=== PATIENT | male | born 1945 | race Caucasian/White ===

== ENCOUNTER 2018-06-15 13:06 | Inpatient (IN) ==
[2018-06-15] MEDS ORDERED: ONDANSETRON INJ 2 MG/ML 2 ML VIAL IV PRN (16:20)
[2018-06-15] MEDS ORDERED: MAGNESIUM HYDROXIDE SUSP 30 ML UDC PO PRN (16:20)
[2018-06-15] MEDS ORDERED: POLYETHYLENE (MIRALAX) 17 GM PACK PO PRN (16:20)
[2018-06-15] MEDS ORDERED: ALUMINUM/MAGNESIUM SUSP 30 ML UDC PO PRN (16:20)
[2018-06-15] MEDS ORDERED: GLUCOSE 40% GEL 15 GM TUBE PO PRN (16:54)
[2018-06-15] MEDS ORDERED: GLUCAGON FOR INJ 1 MG VIAL SQ PRN (16:54)
[2018-06-15] MEDS ORDERED: DEXTROSE 50% 50 ML SYRINGE IV PRN (16:54)
[2018-06-15] MEDS ORDERED: GLUCOSE 10 TABS/TUBE PO PRN (16:54)
[2018-06-15] MEDS ORDERED: CARBOHYDRATES FOR HYPOGLYCEMIA PO PRN (16:54)
[2018-06-15 17:18] LABS: Basophils # (auto) 0.01 K/uL (0-0.2); Basophils % (auto) 0.1 %; Hematocrit (blood only) 38.1 % (42-52); Hemoglobin 12.7 g/dL (14.0-18.0); Immature Granulocytes % (auto) 0.9 %; Lymphocytes # (auto) 0.56 K/uL (1.2-3.4); Lymphocytes % (auto) 4.8 %; Mean Corpuscular Hgb Conc 33.3 g/dL (32-36); Mean Corpuscular Volume 94.8 fL (80-100); Mean Platelet Volume 11.4 fL (7.4-10.4); Monocytes # (auto) 0.46 K/uL (0.11-0.59); Monocytes % (auto) 3.9 %; Neutrophils # (auto) 10.59 K/uL (1.4-6.5); Neutrophils % (auto) 90.3 %; Platelet Count 132 K/uL (130-400); RDW Coefficient of Variation 16.4 % (11.5-14.5); RDW Standard Deviation 56.8 fL (36.4-46.3); Red Blood Count 4.02 M/uL (4.7-6.1); White Blood Count 11.72 K/uL (4.8-10.8)
[2018-06-15] MEDS ORDERED: TRIAMCINOLONE ACET 0.1% OINT 15 GM TUBE TOP PRN (17:30)
--- NOTE | 2018-06-15 17:40 | History & Physical Report ---
Date of Service June 15, 2018 Assessment & Plan (1) Bacteremia due to Gram-positive bacteria: Ddx but not limited to: Infectious endocarditis, Diskitis, osteomyelitis, UTI, septic arthritis Patient does not meet Sepsis criteria per current CMS guidelines Hemodynamically patient is stable with out signs of tachycardia or tachypnea, WBC 11k Patient does have severe infection given + Blood cultures Lactate 4.5 -admit to telemetry -Consult cardiology Dr. Henderson/Infectious disease Dr. Perera -Re-order blood cultures, cbc, cmp, esr, crp, procalcitonin, ck, troponin, MRSA nasal swab, UA C and S/micros -Initiate 2g Rocephin daily until further blood culture results available -Administer 1L IVF 200ml/hr, repeat lactate accordingly -Lumbar spine MRI w/o and w contrast to r/o epidural abscess, diskitis, OM -TTE r/o endocarditis (2) Diffuse arthralgia: -continue oxycodone -hold MTX and Prednisone given + bacteremia (3) Anorexia: -heart healthy, T2DM diet -daily weights -approx 30lb unintentional weight loss in 4 months -ddx: infectious, endocarditis, malignancy, blood dyscrasia, thyroid disorder, hypopituitarism, carcinoid, autoimmune (4) Diabetes type 2, controlled: -A1C 01/15/18 5.5 -hold metformin as outpatient -admitting glucose 359, most likely in setting of steroid use and infection -Novolog/Lantus per protocol -adjust accordingly (5) Dyslipidemia: -continue statin (6) CKD (chronic kidney disease) stage 3, GFR 30-59 ml/min: -baseline Cr 1.6-1.8 -monitor bmp (7) CAD (coronary artery disease): -no angina or sob -continue ASA, Statin, BB (8) History of aortic valve replacement: -2014 secondary to bicuspid aortic valve (9) BPH (benign prostatic hyperplasia): -continue finasteride, flomax -check UA with culture/micros (10) DVT prophylaxis: -heparin sq given ckd Disposition: to be determined Follow up: PCP Dr. Marquis upon discharge Patient was seen in collaboration with Dr. aLne, please see addendum History of Present Illness Chief Complaint: Direct admission secondary to positive blood cultures as outpatient Primary Care Provider: Sonja Marquis MD This is a 72-year-old white male who has a significant past medical history of CAD with history of CABG x1, congenital bicuspid aortic valve s/p prosthetic AVR 2015, T2 DM, HLD, CKD stage III, gout, sensorineural hearing loss bilaterally, Mnire's disease who presents to [facility] as a direct admission from food safety auditor Dr. Henderson secondary to positive blood cultures gram-positive cocci chains. Unfortunately patient has been suffering from complex medical course since 04/2018. Initially symptoms started as right knee pain in which on 04/13/18 patient underwent joint aspiration by Dr. Giles. At this time joint aspiration appeared to be inflammatory in nature also growing 20k pmn and rare gram-positive cocci. 04/18/19 pt underwent second joint aspiration due to + rare gram positive cocci noted. There was some concern for contamination; however appears 2nd knee aspirate also grew gram + cocci. He was placed on 10 day course of Keflex 500mg tid and completed. Unfortunately patient's right knee pain continued and extended to left knee pain , bilateral hip pain, shoulder pain and low back pain. Symptoms were limiting patient's ambulation and affecting quality of life. Subsequently he has also had approximately 30 pound weight loss since February 2018, most recently 19lbs in 2 weeks. Further complaints include increased fatigue, decreased appetite, early satiety, increased urinary urgency, freq and incontinence of urine. He has been following closely with PCP Dr. Marquis. Given above complaints patient had extensive lab work which revealed elevated ESR 112. Given inflammatory marker elevation patient was referred to rheumatology Dr. Ewing and placed on prednisone taper. Rheum eval 05/23/18 concern for seronegative inflammatory arthritis given low titer RF and negative anti-CCP with multiple large joint involvement. Patient did exhibit some relief with prednisone therefore Dr. Ewing placed on further prednisone taper and 10 mg of methotrexate weekly. Despite treatment patient symptoms continued in which PCP referred patient to cardiology for AFTT. He was seen by Daniel Chun PA-C 06/14 given symptoms. Further work up ordered including blood cultures given pt hx of prosthetic valve. Blood cultures returned today + gram-positive cocci in chains x2 bottles. Also significant lab work included leukocytosis 17 K, hemoglobin 13.5, hematocrit 42.1, platelet 154, ferritin 575, iron 41, T sat 20 , TIBC 210, WNL vitamin B12 and folic acid. Currently complains of significant low back pain w/o radicular symptoms ( developed post R knee pain), weakness, difficulty ambulating, diffuse arthralgias, urinary freq/urg and incontinence, 30lb weight loss. Currently ambulates with walker to do simple adls. Back in Fall 2017 patient was able to ambulate normally w/o device walking 2-3 miles daily. He does have uppler/lower ext excoriation rash, patient states he scratches constantly and has been going on for years. Uses triamcinolone cream. He denies f/c/s, dizziness, syncope, n/ v/d, hematuria, melena, hematochezia, constipation. Appetite has been very poor , little taste. Has been drinking fluids. at bedside and very concerned. He was to undergo colonoscopy 04/30 but has been cancelled due to low back pain and weakness. Pain has been mostly controlled with percocet bid, "this is how I get through the day." Allergies Allergy/AdvReac Type Severity Reaction Status Date / Time chlorhexidine Allergy Mild Rash Verified 06/15/18 19:56 naproxen Allergy Mild RASH Verified 04/13/18 14:10 Penicillins Allergy Unknown unknown Verified 06/15/18 19:56 sulfamethoxazole Allergy Unknown Verified 06/15/18 19:56 Home Medications Home Medications Medication Instructions Recorded Confirmed Type allopurinol 300 mg PO DAILY 04/13/18 06/15/18 History aspirin [Aspir-81] 81 mg PO DAILY 04/13/18 06/15/18 History atorvastatin 20 mg PO DAILY 04/13/18 06/15/18 History fluoxetine 10 mg PO DAILY 04/13/18 06/15/18 History metformin 500 mg PO BID 04/13/18 06/15/18 History metoprolol succinate 12.5 mg PO DAILY 04/13/18 06/15/18 History triamcinolone acetonide 1 applic TOPICAL BID PRN 04/13/18 06/15/18 History finasteride 5 mg PO DAILY 06/15/18 06/15/18 History folic acid 1 mg PO DAILY 06/15/18 06/15/18 History lorazepam 1 mg PO Q6H PRN 06/15/18 06/15/18 History methotrexate sodium 4 tab PO FR 06/15/18 06/15/18 History methylprednisolone 8 mg PO UD 06/15/18 06/15/18 History oxycodone-acetaminophen 1 tab PO Q6H PRN 06/15/18 06/15/18 History tamsulosin 0.4 mg PO DAILY 06/15/18 06/15/18 History Past Med/Surg History Medical History Chronic rhinitis (Chronic) Sensorineural hearing loss (SNHL), bilateral (Chronic) Bruxism, sleep-related (Chronic) Diabetes type 2, controlled (Chronic) Dyslipidemia (Chronic) Aortic stenosis, moderate (Chronic) "s/p aortic valve replacement with prosthetic valve 04/2015" CKD (chronic kidney disease) stage 3, GFR 30-59 ml/min (Chronic) Meniere's disease (Chronic) CAD (coronary artery disease) (Chronic) "s/p CABG x 1 " Patient is Buddhism (Chronic) Surgical History History of coronary artery bypass graft x 1 (Resolved) "04/14/[address] Justino Colunga" On 07/07/15 18:18 Diamond Reed wrote "04/14/2015" History of aortic valve replacement (Resolved) "[facility] 04/2015 " History of left inguinal hernia repair (Resolved) "[facility] Dr. Okeefe 1986" History of right inguinal hernia repair (Resolved) "1992; R inguinal hernia repair with repair of recurrent L inguinal hernia" Family History Mother , 94 FH: diabetes mellitus Ovarian ca Father , age 73 FHx: emphysema Grandfather (Maternal) , age 47 Heart attack Social History marital status: Current Living Situation: Spouse Other Information That Helps Us Care for You: Yes Feels Safe at Home: Yes Smoking Status: Never smoker Hx Alcohol Use: Yes Alcohol Intake Frequency: holidays/special occasions only Alcohol Intake Frequency Comment: very rare Hx Substance Use: No Beliefs That Will Affect Care: Taoism Taoism Beliefs: Jehovah witness Preferred Language: Maltese Communication Ability: Effective Review of Systems All systems reviewed & are unremarkable except as noted in HPI & below Physical Exam 2 Vital Signs (Past 24 Hours): Last Vital Signs Temp 36.8 C 06/15/18 16:20 Pulse 76 06/15/18 16:20 Resp 18 06/15/18 16:20 BP 132/72 06/15/18 16:20 Pulse Ox 98 06/15/18 16:20 Physical Exam: Gen: Thin, M, pale, NAD, sitting up in bed, pleasant, conversing easily Head: Normocephalic, Atraumatic Eyes: Sclera normal, no conjunctival injection, PERRLA, EOMI ENT: Gross hearing intact, normal pharynx, mucous membranes moist Neck: supple, no adenopathy, No JVD, no bruit, Resp: Clear to auscultation b/l but decreased at bases, no wheeze, rales, rhonchi. Normal insp/exp effort, no accessory muscle use CV: Regular rate, regular rhythm, 3/6 RICHARD noted, no rub, gallop, or ectopy Abd: +BS x 4, soft, nontender, nondistended Musculoskeletal:+ muscle wasting. moves extremities active rom x 4, strength 4/ 5 except LUE 3/5 with abuction, good floor covering printer assistant strength, reflex 2/4, no clonus Extremities: No edema bilaterally Skin: warm, moist, no rash, negative turgor, cap refill < 2sec Neuro: Alert and oriented x 3, speech normal, good mood/affect, cran nerve 2-12 intact grossly : deferred Results & Data Laboratory Results Short CBC Short CBC 06/15/18 06/15/18 06/15/18 Range/Units 16:52 16:52 16:52 WBC 11.72 H (4.8-10.8) K/uL Hgb 12.7 L (14.0-18.0) g/dL Hct 38.1 L (42-52) % Plt Count 132 (130-400) K/uL Immature Gran # (Auto) 0.10 H (0.00-0.02) K/uL BUN 27 H (7-18) mg/dl Creatinine 1.34 (0.6-1.4) mg/dl Glucose 359 H* (70-99) mg/dl Lactate 4.5 H* (0.4-2.0) mmol/L BMP 06/15/18 16:52 Sodium 129 L Potassium 4.7 Chloride 97 L Carbon Dioxide 25 BUN 27 H Creatinine 1.34 Glucose 359 H* Calcium 8.4 L Cardiac Enzymes 06/15/18 Range/Units 16:52 Total Creatine Kinase 22 L (39-308) U/L Troponin I < 0.015 (0-0.045) ng/ml Liver Function 06/15/18 Range/Units 16:52 Total Bilirubin 0.6 (0.2-1) mg/dl AST 15 (15-37) U/L ALT 26 (12-78) U/L Alkaline Phosphatase 100 (45-117) U/L Albumin 2.6 L (3.4-5.0) gm/dl 06/15/18 Range/Units 16:52 WBC 11.72 H (4.8-10.8) K/uL Hgb 12.7 L (14.0-18.0) g/dL Hct 38.1 L (42-52) % Plt Count 132 (130-400) K/uL Ref Range & Units 1d ago Resulting Agency SPECIMEN DESCRIPTION BLOOD SPECIAL REQUESTS PERIPHERAL CULTURE BOTH BOTTLES OF SET GRAM POSITIVE COCCI IN CHAINS Abnormal REPORT STATUS PENDING P Specimen Collected: 06/14/18 3:01 PM Last Resulted: 06/15/18 12:34 PM P=Value has a preliminary status Code Status & VTE Plan Code Status Full Code VTE Prophylaxis Plan VTE Prophylaxis will be ordered: Yes Supervising Physician Co-Signing Physician Notes Care coordinated with PAIGE Butt. Briefly, 72 YO male with history of ischemic heart disease and bioprosthetic AVR. Experiencing malaise, weight loss, arthralgias over last 2 months. No fever. Has lost about 30 lbs. Treated for septic arthritis right knee with course of cephalexin in early April. Cultures from synovial fluid grew Strep viridans. Also experiencing low back pain. Seen in [facility] [place] to have seronegative RA and was started on prednisone and methothrexate about 2 weeks ago. Seen in Cardiology Clinic yesterday. Blood cultures were drawn; preliminary report 2/2 bottles growing Strep sp. Patient referred to hospital for further evaluation and management. EXAM: General- appears to be chronically ill, no acute distress Neck- no JVD Lungs- clear Heart- RRR, III/ sys murmur at base, no diastolic murmur appreciated, no gallop appreciated Abd- + BS, soft, nontender Extr- no pretibial edema or calf tenderness; no splinter hemorrhages, [place] lesions, or Osler nodes; no overt joint effusions Hgb 12.7, WBC 11,720. BUN 27, creat 1.34, random glucose 359. A/P: Recent septic arthritis right knees with Strep viridans. Ongoing malaise, weight loss, arthralgias, back pain. Now with bacteremia with apparent Strep sp. Does not meet criteria for sepsis per current CMS criteria. Must consider endocarditis, lumbar osteomyelitis/discitis/epidural abscess. Repeat blood cultures. IV ceftriaxone. Stop prednisone and methotrexate. Transthoracic echo. MRI lumbar spine. Consult Cardiology and ID. Other problems as noted by PAIGE Ware. _ (1) BPH (benign prostatic hyperplasia) Lower urinary tract symptom detail: urinary frequency Lower urinary tract symptom presence: symptoms present Qualified Code(s): N40.1 - Benign prostatic hyperplasia with lower urinary tract symptoms; R35.0 - Frequency of micturition (2) CAD (coronary artery disease) Associated angina: without angina Coronary Disease-Associated Artery/Lesion type: bypass graft [place] vs. transplanted heart: hughes heart Qualified Code( s): I25.810 - Atherosclerosis of coronary artery bypass graft(s) without angina pectoris (3) Diabetes type 2, controlled Diabetes mellitus complication status: without complication Diabetes mellitus [facility] insulin use: without director long term care use Qualified Code(s): E11.9 - Type 2 diabetes mellitus without complications
[2018-06-15 17:51] LABS: INR 1.1 (0.9-1.1); Prothrombin Time 10.6 Seconds (9.0-12.0)
[2018-06-15 18:06] LABS: Alanine Aminotransferase 26 U/L (12-78); Albumin Globulin Ratio 0.7 (0.9-2); Albumin Level 2.6 gm/dl (3.4-5.0); Alkaline Phosphatase 100 U/L (45-117); Aspartate Aminotransferase 15 U/L (15-37); Bilirubin,Total 0.6 mg/dl (0.2-1); Blood Urea Nitrogen 27 mg/dl (7-18); C Reactive Protein 0.94 mg/dl (0-0.29); Calcium 8.4 mg/dl (8.5-10.1); Carbon Dioxide 25 mmol/L (21-32); Chloride 97 mmol/L (98-107); Creatine Kinase 22 U/L (39-308); Est GFR (African American) 61.8; Est GFR (Non-African American) 53.3; Globulin 3.6 gm/dl (2.5-4.0); Glucose 359 mg/dl (70-99); Potassium 4.7 mmol/L (3.5-5.1); Sodium 129 mmol/L (136-145); Total Protein 6.2 gm/dl (6.4-8.2); Troponin I < 0.015 ng/ml (0-0.045)
[2018-06-15] MEDS: PATIENT'S HEIGHT AND/OR WEIGHT NEEDED SCH ×2 (18:20→22:22)
[2018-06-15] MEDS: cefTRIAXone SODIUM 2,000 MG in DEXTROSE 5% 50 ML IV SCH (18:33)
[2018-06-15] MEDS ORDERED: INSULIN ASPART 100 UNITS/ML 3 ML PEN SC ONE (19:15)
[2018-06-15] MEDS ORDERED: SODIUM CHLORIDE 0.9% 1000ML 1,000 ML IV SCH (19:30)
[2018-06-15] MEDS: INSULIN ASPART 100 UNITS/ML 3 ML PEN SC SCH (21:32)
[2018-06-15] MEDS: INSULIN GLARGINE SOLOSTAR 100 UNITS/ML 3 ML PEN SC SCH (21:32)
[2018-06-15] MEDS: HEPARIN SOD 5,000 UNIT/0.5 ML VIAL SQ SCH (22:07)
[2018-06-15 22:30] LABS: Appearance Urine Clear (Clear); Bilirubin Urine Negative (Negative); Color Urine Yellow; Glucose Urine UA 3+ (Negative); Ketones Urine Negative (Negative); Leukocyte Esterase Urine Negative (Negative); Nitrite Urine Negative (Negative); Protein Urine Negative (Negative); Specific Gravity Urine 1.027 (1.000-1.030); Urobilinogen Urine Positive (Negative)
[2018-06-16] MEDS: HEPARIN SOD 5,000 UNIT/0.5 ML VIAL SQ SCH ×3 (06:07→21:06)
[2018-06-16 06:40] LABS: Basophils # (auto) 0.01 K/uL (0-0.2); Basophils % (auto) 0.1 %; Eosinophils # (auto) 0.04 K/uL (0-0.5); Eosinophils % (auto) 0.3 %; Hematocrit (blood only) 36.2 % (42-52); Hemoglobin 11.8 g/dL (14.0-18.0); Immature Granulocytes # (auto) 0.14 K/uL (0.00-0.02); Immature Granulocytes % (auto) 1.1 %; Lymphocytes # (auto) 1.88 K/uL (1.2-3.4); Lymphocytes % (auto) 14.5 %; Mean Corpuscular Hgb Conc 32.6 g/dL (32-36); Mean Corpuscular Volume 94.8 fL (80-100); Mean Platelet Volume 10.9 fL (7.4-10.4); Monocytes # (auto) 0.87 K/uL (0.11-0.59); Monocytes % (auto) 6.7 %; Neutrophils # (auto) 10.03 K/uL (1.4-6.5); Neutrophils % (auto) 77.3 %; Platelet Count 135 K/uL (130-400); RDW Coefficient of Variation 16.6 % (11.5-14.5); RDW Standard Deviation 57.1 fL (36.4-46.3); Red Blood Count 3.82 M/uL (4.7-6.1); White Blood Count 12.97 K/uL (4.8-10.8)
[2018-06-16 07:22] LABS: Calcium 8.7 mg/dl (8.5-10.1); Est GFR (African American) 79.3; Est GFR (Non-African American) 68.4; Potassium 4.2 mmol/L (3.5-5.1)
--- NOTE | 2018-06-16 07:58 | Infectious Disease Consult ---
Date of Consultation June 16, 2018 Assessment & Plan (1) Gram positive sepsis: cotmarcosue rocephin for now, echo pending, highly concerned for IE, if negative for veg would suggest LAKSHMI. will repeat blood cultures x 2 as admission blood cultures positive. suspect that right knee septic arthritis is source for bacteremia, ongoing infection and likely cause for elevated inflammatory markers , will repeat. MRI spine pending, would also suggest imaging of knee r/o osteo. will need prolonged course of IV abx. will continue to follow. History of Present Illness Attending Physician: Drew Lane MD pt admitted from cardio due to + blood cultures from outpatient blood draw, unclear what bacteria. states he has not been feeling well for some weeks. poor appetite but denies wt loss, low energy, denies f/c. Also found to have elevated ESR, saw rheum and was taking prednisone.. afebrile since admission, wbc 11. blood cultures from ER yesterday now growing gpc 2/2 sets. on Rocephin currently, tolerating well. no imaging done this admission. States in early April he had swelling and discomfort in his right knee, aspiration done and cultures from 04/16 and 04/18 grew viridans strep with I sensitivity to pcn and amp. Fluid analysis from 04/18 found 264,500 wbc with 91% N. He states he was not treated with abx at that time and has not been on abx leading up to this admission, however, per H&P he was reportedly given 10 days keflex. His knee pain and swelling resolved. He was not admitted to hospital at that time. He denies any trauma or surgeries to right knee. He currently states he is feeling well, but tired. denies cp,sob, cough, no n/v/d/abd pain, denies pain/swelling/ warmth in knees. no gu symptoms but per H&P was having incontinence. tolerating abx. Echo and MRI spine pending - was c/o low back as well on admission but denies on my exam. Allergies Allergy/AdvReac Type Severity Reaction Status Date / Time chlorhexidine Allergy Mild Rash Verified 06/15/18 19:56 naproxen Allergy Mild RASH Verified 04/13/18 14:10 Penicillins Allergy Unknown unknown Verified 06/15/18 19:56 sulfamethoxazole Allergy Unknown Verified 06/15/18 19:56 Home Medications Home Medications Medication Instructions Recorded Confirmed Type allopurinol 300 mg PO DAILY 04/13/18 06/15/18 History aspirin [Aspir-81] 81 mg PO DAILY 04/13/18 06/15/18 History atorvastatin 20 mg PO DAILY 04/13/18 06/15/18 History fluoxetine 10 mg PO DAILY 04/13/18 06/15/18 History metformin 500 mg PO BID 04/13/18 06/15/18 History metoprolol succinate 12.5 mg PO DAILY 04/13/18 06/15/18 History triamcinolone acetonide 1 applic TOPICAL BID PRN 04/13/18 06/15/18 History finasteride 5 mg PO DAILY 06/15/18 06/15/18 History folic acid 1 mg PO DAILY 06/15/18 06/15/18 History lorazepam 1 mg PO Q6H PRN 06/15/18 06/15/18 History methotrexate sodium 4 tab PO FR 06/15/18 06/15/18 History methylprednisolone 8 mg PO UD 06/15/18 06/15/18 History oxycodone-acetaminophen 1 tab PO Q6H PRN 06/15/18 06/15/18 History tamsulosin 0.4 mg PO DAILY 06/15/18 06/15/18 History Patient History Medical History Chronic rhinitis (Chronic) Sensorineural hearing loss (SNHL), bilateral (Chronic) Bruxism, sleep-related (Chronic) Diabetes type 2, controlled (Chronic) Dyslipidemia (Chronic) Aortic stenosis, moderate (Chronic) "s/p aortic valve replacement with prosthetic valve 04/2015" CKD (chronic kidney disease) stage 3, GFR 30-59 ml/min (Chronic) Meniere's disease (Chronic) CAD (coronary artery disease) (Chronic) "s/p CABG x 1 " Patient is Rastafarian (Chronic) Surgical History History of coronary artery bypass graft x 1 (Resolved) "04/14/[address] Justino Colunga" On 07/07/15 18:18 Diamond Brianna wrote "04/14/2015" History of aortic valve replacement (Resolved) "[facility] 04/2015 " History of left inguinal hernia repair (Resolved) "[facility] Dr. Okeefe 1986" History of right inguinal hernia repair (Resolved) "1992; R inguinal hernia repair with repair of recurrent L inguinal hernia" Family History Mother , 94 FH: diabetes mellitus Ovarian ca Father , age 73 FHx: emphysema Grandfather (Maternal) , age 47 Heart attack Social History marital status: Current Living Situation: Spouse Other Information That Helps Us Care for You: Yes Feels Safe at Home: Yes Smoking Status: Never smoker Hx Alcohol Use: Yes Alcohol Intake Frequency: holidays/special occasions only Alcohol Intake Frequency Comment: very rare Hx Substance Use: No Beliefs That Will Affect Care: Muslim Muslim Beliefs: Jehovah witness Preferred Language: Turkmen Communication Ability: Effective Review of Systems all remaining ros reviewed and are negative. Physical Exam 2 Vital Signs (Past 24 Hours): Last Vital Signs Temp 36.9 C 06/16/18 02:56 Pulse 70 06/16/18 02:56 Resp 16 06/16/18 02:56 BP 126/75 06/16/18 02:56 Pulse Ox 97 06/16/18 02:56 Constitutional: WD/WN, vitals as above Eyes: PERRL, conjunctivae normal, anicteric sclerae ENMT: external ear and nose normal, oropharynx normal Neck: normal visual inspection Respiratory: normal respiratory effort, lungs clear to auscultation Cardiovascular: RRR, no murmur, no edema Gastrointestinal (Abdomen): normal bowel sounds, soft, nontender, no hepatosplenomegaly Musculoskeletal: no cyanosis or clubbing, extremities motor strength 5/5 Skin: no rashes, warm and dry Trauma: + evidence of skin trauma and + abrasion multiple scrapes and scrathes b/l legs. no drainage or bleeding. b/ l knees with no swelling, warmth, erythema, tenderness Psychiatric: A+Ox3, euthymic affect Results & Data Laboratory Results Microbiology 06/15/18 16:52 Blood Blood Culture - Preliminary Gram positive cocci 06/15/18 16:52 Blood Blood Culture - Preliminary Gram positive cocci
[2018-06-16] MEDS ORDERED: PERFLUTREN LIPID MICROSPHERE (DEFINITY) IV ONE (08:21)
[2018-06-16] MEDS: INSULIN ASPART 100 UNITS/ML 3 ML PEN SC SCH ×4 (09:20→20:57)
[2018-06-16] MEDS: ALLOPURINOL 300 MG TAB PO SCH (09:24)
[2018-06-16] MEDS: FINASTERIDE 5 MG TAB PO SCH (09:24)
[2018-06-16] MEDS: FOLIC ACID 1 MG TAB PO SCH (09:24)
[2018-06-16] MEDS: ATORVASTATIN 20 MG TAB PO SCH (09:24)
[2018-06-16] MEDS: OXYCODONE/ACETAMINOPHEN 5mg/325mg TAB PO PRN ×2 (09:24→17:16)
[2018-06-16] MEDS: METOPROLOL SUCC 25MG EXT REL TAB PO SCH (09:24)
[2018-06-16] MEDS: FLUOXETINE HCL 10 MG CAP PO SCH (09:25)
[2018-06-16] MEDS: ASPIRIN 81 MG ECTAB PO SCH (09:25)
[2018-06-16] MEDS: TAMSULOSIN HCL 0.4 MG CAP PO SCH (09:25)
[2018-06-16] MEDS: INSULIN GLARGINE SOLOSTAR 100 UNITS/ML 3 ML PEN SC SCH ×2 (09:26→20:59)
[2018-06-16] MEDS ORDERED: GADOBUTROL 10ML VIAL IV PRN (11:43)
--- NOTE | 2018-06-16 11:49 | Cardiology Consultation ---
Date of Consultation June 16, 2018 Assessment & Plan (1) Gram positive sepsis: Patient presents with 2-month history of gradual decline malaise weight loss setting of recent septic arthritis with strep viridans. Blood cultures are growing 2 bottles of gram-positive cocci. Antibiotic therapies initiated consult with ID placed and appreciated MRI of back due to back pain pending (2) Bacteremia due to Gram-positive bacteria: (3) History of coronary artery bypass graft x 1: Stable angina pectoris no signs of acute coronary ischemia (4) History of aortic valve replacement: Cardiogram reveals no overt vegetation today bioprosthetic in place with chronic mild perivalvular insufficiency EKG without conduction change Arrangements made for LAKSHMI potentially in a.m., n.p.o. after midnight History of Present Illness Attending Physician: Drew Lane MD History of Present Illness Patient is a 72-year-old male with complex past medical history which includes 1. Congenitally bicuspid aortic valve. 2. Status post aortic valve replacement on April 14, 2015, receiving a 23 mm [place] Epic bioprosthesis 3. Small perivalvular aortic insufficiency jet. 4. Atherosclerotic coronary disease, receiving a BYERS graft to the LAD at the time of valve replacement. 5. Pleuropericarditis postoperatively. 6. Recurrent vagal syncope response to thoracentesis, noxious stimuli 7. Dyslipidemia 8. Type 2 diabetes mellitus 9. Gout 10. Thrombocytopenia 11. Chronic kidney disease. Patient referred for further evaluation after recent outpatient evaluation well outlined. Has had difficulties with weight loss generalized malaise and history of strep viridans septic arthritis April 2018. He is referred for cardiac evaluation with above symptoms having begun on methotrexate and prednisone in the interim for elevated sed rate and and diffuse articular pain. Blood cultures were drawn and are now growing 2 bottles of streptococci He denies any acute cardiac complaints. Notes no tachypalpitations syncope near syncope. Notes no chest pain or discomfort notes no worsening edema. Has had no acute neurologic complaints. Has long-standing excoriative rash. Recently has been experiencing low back pain treated with anti-inflammatory and narcotic pain control. Allergies Allergy/AdvReac Type Severity Reaction Status Date / Time chlorhexidine Allergy Mild Rash Verified 06/15/18 19:56 naproxen Allergy Mild RASH Verified 04/13/18 14:10 Penicillins Allergy Unknown unknown Verified 06/15/18 19:56 sulfamethoxazole Allergy Unknown Verified 06/15/18 19:56 Home Medications Home Medications Medication Instructions Recorded Confirmed Type allopurinol 300 mg PO DAILY 04/13/18 06/15/18 History aspirin [Aspir-81] 81 mg PO DAILY 04/13/18 06/15/18 History atorvastatin 20 mg PO DAILY 04/13/18 06/15/18 History fluoxetine 10 mg PO DAILY 04/13/18 06/15/18 History metformin 500 mg PO BID 04/13/18 06/15/18 History metoprolol succinate 12.5 mg PO DAILY 04/13/18 06/15/18 History triamcinolone acetonide 1 applic TOPICAL BID PRN 04/13/18 06/15/18 History finasteride 5 mg PO DAILY 06/15/18 06/15/18 History folic acid 1 mg PO DAILY 06/15/18 06/15/18 History lorazepam 1 mg PO Q6H PRN 06/15/18 06/15/18 History methotrexate sodium 4 tab PO FR 06/15/18 06/15/18 History methylprednisolone 8 mg PO UD 06/15/18 06/15/18 History oxycodone-acetaminophen 1 tab PO Q6H PRN 06/15/18 06/15/18 History tamsulosin 0.4 mg PO DAILY 06/15/18 06/15/18 History Patient History Medical History Chronic rhinitis (Chronic) Sensorineural hearing loss (SNHL), bilateral (Chronic) Bruxism, sleep-related (Chronic) Diabetes type 2, controlled (Chronic) Dyslipidemia (Chronic) Aortic stenosis, moderate (Chronic) "s/p aortic valve replacement with prosthetic valve 04/2015" CKD (chronic kidney disease) stage 3, GFR 30-59 ml/min (Chronic) Meniere's disease (Chronic) CAD (coronary artery disease) (Chronic) "s/p CABG x 1 " Patient is Alevism (Chronic) Surgical History History of coronary artery bypass graft x 1 (Resolved) "04/14/[address] Justino Colunga" On 07/07/15 18:18 Diamond Brianna wrote "04/14/2015" History of aortic valve replacement (Resolved) "[facility] [place] 04/2015 " History of left inguinal hernia repair (Resolved) "[facility] Dr. [place] 1986" History of right inguinal hernia repair (Resolved) "1992; R inguinal hernia repair with repair of recurrent L inguinal hernia" Family History Mother , 94 FH: diabetes mellitus Ovarian ca Father , age 73 FHx: emphysema Grandfather (Maternal) , age 47 Heart attack Social History marital status: Current Living Situation: Spouse Other Information That Helps Us Care for You: Yes Feels Safe at Home: Yes Smoking Status: Never smoker Hx Alcohol Use: Yes Alcohol Intake Frequency: holidays/special occasions only Alcohol Intake Frequency Comment: very rare Hx Substance Use: No Beliefs That Will Affect Care: Baptism Baptism Beliefs: Jehovah witness Preferred Language: Cuban Communication Ability: Effective Review of Systems As well outlined in HPI Physical Exam 2 Vital Signs (Past 24 Hours): Last Vital Signs Temp 36.9 C 06/16/18 02:56 Pulse 70 06/16/18 02:56 Resp 16 06/16/18 02:56 BP 126/75 06/16/18 02:56 Pulse Ox 97 06/16/18 02:56 Constitutional: + ill appearing and + thin Eyes: PERRL, conjunctivae normal, anicteric sclerae ENMT: external ear and nose normal, oropharynx normal Neck: trachea midline, no thyromegaly Respiratory: normal respiratory effort, lungs clear to auscultation Cardiovascular: Rate/Rhythm: regular rate and regular rhythm Heart Sounds: normal S1, normal S2 and + murmur (Grade 2-3/6 systolic murmur no diastolic murmur no S3 gallop) Palpation: normal PMI Vessels: no JVD Extremities : no pedal edema Gastrointestinal (Abdomen): normal bowel sounds, soft, nontender, no hepatosplenomegaly Skin: Excoriated rash arms legs and trunk Neurologic: PERRL, EOMI, accommodation nl, no face palsy, no dysarthria Psychiatric: A+Ox3, euthymic affect Results & Data Laboratory Results Laboratory Results - last 24 hr 06/15/18 06/15/18 06/15/18 16:52 16:52 16:52 WBC 11.72 H RBC 4.02 L Hgb 12.7 L Hct 38.1 L MCV 94.8 MCH 31.6 MCHC 33.3 RDW Std Deviation 56.8 H RDW Coeff of Tin 16.4 H Plt Count 132 MPV 11.4 H Immature Gran % (Auto) 0.9 Neut % (Auto) 90.3 Lymph % (Auto) 4.8 Hunt % (Auto) 3.9 Eos % (Auto) 0.0 Baso % (Auto) 0.1 Immature Gran # (Auto) 0.10 H Neut # (Auto) 10.59 H Lymph # (Auto) 0.56 L Hunt # (Auto) 0.46 Eos # (Auto) 0.00 Baso # (Auto) 0.01 ESR 19 H PT INR Sodium Potassium Chloride Carbon Dioxide Anion Gap BUN Creatinine Est Cr Clr Drug Dosing Est GFR ( Amer) Est GFR (Non-Af Amer) BUN/Creatinine Ratio Glucose POC Glucose Lactate 4.5 H* Calcium Total Bilirubin AST ALT Alkaline Phosphatase Total Creatine Kinase Troponin I C-Reactive Protein Total Protein Albumin Globulin Albumin/Globulin Ratio Beta-Hydroxybutyric Acd Procalcitonin TSH Urine Color Urine Appearance Urine pH Ur Specific [place] Urine Protein Urine Glucose (UA) Urine Ketones Urine Blood Urine Nitrite Urine Bilirubin Urine Urobilinogen Ur Leukocyte Esterase Nasal Screen MRSA (PCR) Hepatitis C Ab Screen 06/15/18 06/15/18 06/15/18 16:52 16:52 16:52 WBC RBC Hgb Hct MCV MCH MCHC RDW Std Deviation RDW Coeff of Tin Plt Count MPV Immature Gran % (Auto) Neut % (Auto) Lymph % (Auto) [place] % (Auto) Eos % (Auto) Baso % (Auto) Immature Gran # (Auto) Neut # (Auto) Lymph # (Auto) [place] # (Auto) Eos # (Auto) Baso # (Auto) ESR PT INR Sodium 129 L Potassium 4.7 Chloride 97 L Carbon Dioxide 25 Anion Gap 7.0 BUN 27 H Creatinine 1.34 Est Cr Clr Drug Dosing Not Reportable Est GFR ( Amer) 61.8 Est GFR (Non-Af Amer) 53.3 BUN/Creatinine Ratio 20.0 Glucose 359 H* POC Glucose Lactate Calcium 8.4 L Total Bilirubin 0.6 AST 15 ALT 26 Alkaline Phosphatase 100 Total Creatine Kinase 22 L Troponin I < 0.015 C-Reactive Protein 0.94 H Total Protein 6.2 L Albumin 2.6 L Globulin 3.6 Albumin/Globulin Ratio 0.7 L Beta-Hydroxybutyric Acd 1.54 Procalcitonin 0.20 TSH Urine Color Urine Appearance Urine pH Ur Specific [place] Urine Protein Urine Glucose (UA) Urine Ketones Urine Blood Urine Nitrite Urine Bilirubin Urine Urobilinogen Ur Leukocyte Esterase Nasal Screen MRSA (PCR) Hepatitis C Ab Screen Neg 06/15/18 06/15/18 06/15/18 17:25 17:50 19:20 WBC RBC Hgb Hct MCV MCH MCHC RDW Std Deviation RDW Coeff of Tin Plt Count MPV Immature Gran % (Auto) Neut % (Auto) Lymph % (Auto) [place] % (Auto) Eos % (Auto) Baso % (Auto) Immature Gran # (Auto) Neut # (Auto) Lymph # (Auto) [place] # (Auto) Eos # (Auto) Baso # (Auto) ESR PT 10.6 INR 1.1 Sodium Potassium Chloride Carbon Dioxide Anion Gap BUN Creatinine Est Cr Clr Drug Dosing Est GFR ( Amer) Est GFR (Non-Af Amer) BUN/Creatinine Ratio Glucose POC Glucose 330 H Lactate Calcium Total Bilirubin AST ALT Alkaline Phosphatase Total Creatine Kinase Troponin I C-Reactive Protein Total Protein Albumin Globulin Albumin/Globulin Ratio Beta-Hydroxybutyric Acd Procalcitonin TSH Urine Color Urine Appearance Urine pH Ur Specific [place] Urine Protein Urine Glucose (UA) Urine Ketones Urine Blood Urine Nitrite Urine Bilirubin Urine Urobilinogen Ur Leukocyte Esterase Nasal Screen MRSA (PCR) Negative Hepatitis C Ab Screen 06/15/18 06/15/18 06/15/18 21:26 22:15 22:48 WBC RBC Hgb Hct MCV MCH MCHC RDW Std Deviation RDW Coeff of Tin Plt Count MPV Immature Gran % (Auto) Neut % (Auto) Lymph % (Auto) Hunt % (Auto) Eos % (Auto) Baso % (Auto) Immature Gran # (Auto) Neut # (Auto) Lymph # (Auto) Hunt # (Auto) Eos # (Auto) Baso # (Auto) ESR PT INR Sodium Potassium Chloride Carbon Dioxide Anion Gap BUN Creatinine Est Cr Clr Drug Dosing Est GFR ( Amer) Est GFR (Non-Af Amer) BUN/Creatinine Ratio Glucose POC Glucose 201 H Lactate 2.1 H* Calcium Total Bilirubin AST ALT Alkaline Phosphatase Total Creatine Kinase Troponin I C-Reactive Protein Total Protein Albumin Globulin Albumin/Globulin Ratio Beta-Hydroxybutyric Acd Procalcitonin TSH Urine Color Yellow Urine Appearance Clear Urine pH 7.0 Ur Specific [place] 1.027 Urine Protein Negative Urine Glucose (UA) 3+ H Urine Ketones Negative Urine Blood Negative Urine Nitrite Negative Urine Bilirubin Negative Urine Urobilinogen Positive H Ur Leukocyte Esterase Negative Nasal Screen MRSA (PCR) Hepatitis C Ab Screen 06/16/18 06/16/18 06/16/18 05:57 05:57 05:57 WBC 12.97 H RBC 3.82 L Hgb 11.8 L Hct 36.2 L MCV 94.8 MCH 30.9 MCHC 32.6 RDW Std Deviation 57.1 H RDW Coeff of Tin 16.6 H Plt Count 135 MPV 10.9 H Immature Gran % (Auto) 1.1 Neut % (Auto) 77.3 Lymph % (Auto) 14.5 Hunt % (Auto) 6.7 Eos % (Auto) 0.3 Baso % (Auto) 0.1 Immature Gran # (Auto) 0.14 H Neut # (Auto) 10.03 H Lymph # (Auto) 1.88 Hunt # (Auto) 0.87 H Eos # (Auto) 0.04 Baso # (Auto) 0.01 ESR PT INR Sodium 138 D Potassium 4.2 Chloride 101 Carbon Dioxide 30 Anion Gap 6.0 BUN 27 H Creatinine 1.09 Est Cr Clr Drug Dosing 61.0 Est GFR ( Amer) 79.3 Est GFR (Non-Af Amer) 68.4 BUN/Creatinine Ratio 25.0 H Glucose 73 POC Glucose Lactate 1.5 Calcium 8.7 Total Bilirubin AST ALT Alkaline Phosphatase Total Creatine Kinase Troponin I C-Reactive Protein Total Protein Albumin Globulin Albumin/Globulin Ratio Beta-Hydroxybutyric Acd Procalcitonin TSH 1.120 Urine Color Urine Appearance Urine pH Ur Specific [place] Urine Protein Urine Glucose (UA) Urine Ketones Urine Blood Urine Nitrite Urine Bilirubin Urine Urobilinogen Ur Leukocyte Esterase Nasal Screen MRSA (PCR) Hepatitis C Ab Screen 06/16/18 06/16/18 08:42 08:42 WBC RBC Hgb Hct MCV MCH MCHC RDW Std Deviation RDW Coeff of Tin Plt Count MPV Immature Gran % (Auto) Neut % (Auto) Lymph % (Auto) Hunt % (Auto) Eos % (Auto) Baso % (Auto) Immature Gran # (Auto) Neut # (Auto) Lymph # (Auto) Hunt # (Auto) Eos # (Auto) Baso # (Auto) ESR 19 H PT INR Sodium Potassium Chloride Carbon Dioxide Anion Gap BUN Creatinine Est Cr Clr Drug Dosing Est GFR ( Amer) Est GFR (Non-Af Amer) BUN/Creatinine Ratio Glucose POC Glucose Lactate Calcium Total Bilirubin AST ALT Alkaline Phosphatase Total Creatine Kinase Troponin I C-Reactive Protein 0.69 H Total Protein Albumin Globulin Albumin/Globulin Ratio Beta-Hydroxybutyric Acd Procalcitonin TSH Urine Color Urine Appearance Urine pH Ur Specific [place] Urine Protein Urine Glucose (UA) Urine Ketones Urine Blood Urine Nitrite Urine Bilirubin Urine Urobilinogen Ur Leukocyte Esterase Nasal Screen MRSA (PCR) Hepatitis C Ab Screen ECG Additional Comments: 16-JUN-2018 07:04:01 [facility] Normal sinus rhythm with sinus arrhythmia Nonspecific ST abnormality Abnormal ECG When compared with ECG of 13-APR-2018 13:11, Nonspecific T wave abnormality, improved in Inferior leads Nonspecific T wave abnormality no longer evident in Anterolateral leads
--- NOTE | 2018-06-16 11:58 | Magnetic Resonance Report ---
MR lumbar spine wo/w con HISTORY: Pain Positive blood cultures, back pain TECHNIQUE: Multiplanar multisequence MRI of the lumbar spine was performed both before and after the intravenous administration of contrast. COMPARISON: None. FINDINGS: For the purpose of the report the L5-S1 disc space will be located on axial image 22 of 25. Considerable degenerative disc change throughout the entire lumbar spine. Narrowing of the L2-L3 disc space with evidence for reactive edematous change of the inferior endplate of L2 and superior endpla te of L3. Postcontrast images in the sagittal plane show only a trace of disc enhancement with the bu lk of the disc negative for significant enhancement. L1-L2: Mild broad-based disc herniation. Mild impact anterior thecal sac. Neuroforamina are patent bi laterally. No significant postcontrast enhancement. L2-L3: Broad-based disc herniation with evidence for postcontrast enhancement of the vertebral endpla balaji as well as focal enhancement of the paraspinal musculature and neural foramina. This is suggestiv e of discitis and underlying endplate osteomyelitis. There is moderate multifocal narrowing of spinal canal. A well-defined mass within the spinal canal is not appreciated. There is a central bulging di sc. L3-L4: Moderate multifactorial spinal stenosis. Mild narrowing of the neuroforamina bilaterally. Dege nerative change posterior elements. Slight postcontrast enhancement of the paravertebral musculature. L4-L5: Moderate multifactorial spinal stenosis. Mild broad-based disc herniation. No significant post contrast enhancement. L5-S1: Broad-based bulging disc. Minimal impact anterior thecal sac. No significant compromise of the neuroforamina. No significant postcontrast enhancement. IMPRESSION: 1. Findings suggestive of somewhat atypical discitis at L2-L3 with secondary osteomyelitis of the rl tebral endplates as discussed. 2. Moderate postcontrast enhancement primarily of the vertebral endplates and neural foramina at L2-L 3, and to a lesser extent paravertebral musculature.. 3. Bulging discs, degenerative disc change, and disc herniations and multilevel bases as described. 4. Moderate multilevel multifactorial spinal stenosis primarily on the basis of degenerative and disc related change. The above report was generated using voice recognition software. It may contain grammatical, syntax or spelling errors. Electronically signed by: Daniel Sandoval M.D. 06/16/2018 11:55 AM
[2018-06-16] MEDS: cefTRIAXone SODIUM 2,000 MG in DEXTROSE 5% 50 ML IV SCH (13:26)
--- NOTE | 2018-06-16 19:05 | Hospitalist Progress Note ---
Date of Service June 16, 2018 Assessment & Plan (1) Bacteremia due to Gram-positive bacteria: Outpatient blood cultures drawn 06/14/18 growing gram + cocci in chains. History septic arthritis right knee early April with Strep viridans. Did not meet criteria for sepsis at time of admission per current CMS criteria. Repeat blood cultures obtained and patient placed on IV ceftriaxone. ID and Cardiology consulted. Status post bioprosthetic AVR- consider endocarditis. Transthoracic echo demonstrated stable function of bioprosthetic AVR with mild perivalvular leak, no apparent vegetations. LAKSHMI planned for tomorrow. Low back pain- lumbar osteomyelitis / discititis as discussed below. (2) Osteomyelitis of lumbar spine: Low back pain associated with bacteremia. MRI demonstrated osteomyelitis / discitis L2-3 without epidural abscess. Discuss with ID and Ortho spine. Antibiotic management as noted above. (3) History of aortic valve replacement: S/P bioprosthetic aortic valve replacement as discussed above. (4) CAD (coronary artery disease): S/P CABG. No anginal symptoms. Continue aspirin, metoprolol, statin. (5) BPH (benign prostatic hyperplasia): Continue tamsulosin and finasteride. (6) Arthralgia: Recently diagnosed with seronegative RA. Arthralgias may have been due to bacteremia. Hold prednisone and methotrexate. (7) Diabetes type 2, controlled: Lantus / NovoLog per protocol. (8) DVT prophylaxis: SQ heparin. Ambulate. (9) Discharge planning issues: Anticipated discharge to home on IV antibiotics. Family Medicine follow-up with Dr. Marquis. Subjective Recheck for bacteremia and other problems. Pt seen in his room around 1820. Feels about the same. No fever or chills. Ongoing low back pain. No chest pain. No cough or SOB. No nausea, vomiting, diarrhea. No dysuria. Physical Exam 2 Vital Signs (Past 24 Hours): Last Vital Signs Temp 36.6 C 06/16/18 15:17 Pulse 71 06/16/18 15:17 Resp 16 06/16/18 15:17 BP 109/64 06/16/18 15:17 Pulse Ox 96 06/16/18 15:17 Constitutional: no acute distress Respiratory: no respiratory distress Auscultation: lungs clear to auscultation bilaterally Cardiovascular: Rate/Rhythm: regular rate and regular rhythm Heart Sounds: + murmur (III/ systolic murmur at base); no gallop and no cardiac rub Vessels: no JVD Extremities: no calf tenderness and no edema Gastrointestinal (Abdomen): normal bowel sounds, soft, nontender, no hepatosplenomegaly Musculoskeletal: motor strength legs 5/5 no splinter hemorrhages, [place] lesions, [place] nodes Skin: no rashes, warm and dry Psychiatric: Orientation: alert and oriented x 3 Results & Data Laboratory Results Laboratory Results - last 24 hr 06/16/18 06/16/18 06/16/18 05:57 05:57 05:57 WBC 12.97 H RBC 3.82 L Hgb 11.8 L Hct 36.2 L MCV 94.8 MCH 30.9 MCHC 32.6 RDW Std Deviation 57.1 H RDW Coeff of Tin 16.6 H Plt Count 135 MPV 10.9 H Immature Gran % (Auto) 1.1 Neut % (Auto) 77.3 Lymph % (Auto) 14.5 [place] % (Auto) 6.7 Eos % (Auto) 0.3 Baso % (Auto) 0.1 Immature Gran # (Auto) 0.14 H Neut # (Auto) 10.03 H Lymph # (Auto) 1.88 [place] # (Auto) 0.87 H Eos # (Auto) 0.04 Baso # (Auto) 0.01 ESR Sodium 138 D Potassium 4.2 Chloride 101 Carbon Dioxide 30 Anion Gap 6.0 BUN 27 H Creatinine 1.09 Est Cr Clr Drug Dosing 61.0 Est GFR ( Amer) 79.3 Est GFR (Non-Af Amer) 68.4 BUN/Creatinine Ratio 25.0 H Glucose 73 POC Glucose Lactate 1.5 Calcium 8.7 C-Reactive Protein TSH 1.120 06/16/18 06/16/18 06/16/18 08:42 08:42 12:02 WBC RBC Hgb Hct MCV MCH MCHC RDW Std Deviation RDW Coeff of Tin Plt Count MPV Immature Gran % (Auto) Neut % (Auto) Lymph % (Auto) [place] % (Auto) Eos % (Auto) Baso % (Auto) Immature Gran # (Auto) Neut # (Auto) Lymph # (Auto) [place] # (Auto) Eos # (Auto) Baso # (Auto) ESR 19 H Sodium Potassium Chloride Carbon Dioxide Anion Gap BUN Creatinine Est Cr Clr Drug Dosing Est GFR ( Amer) Est GFR (Non-Af Amer) BUN/Creatinine Ratio Glucose POC Glucose 138 H Lactate Calcium C-Reactive Protein 0.69 H TSH 06/16/18 06/16/18 16:36 20:00 WBC RBC Hgb Hct MCV MCH MCHC RDW Std Deviation RDW Coeff of Tin Plt Count MPV Immature Gran % (Auto) Neut % (Auto) Lymph % (Auto) [place] % (Auto) Eos % (Auto) Baso % (Auto) Immature Gran # (Auto) Neut # (Auto) Lymph # (Auto) [place] # (Auto) Eos # (Auto) Baso # (Auto) ESR Sodium Potassium Chloride Carbon Dioxide Anion Gap BUN Creatinine Est Cr Clr Drug Dosing Est GFR ( Amer) Est GFR (Non-Af Amer) BUN/Creatinine Ratio Glucose POC Glucose 151 H 237 H Lactate Calcium C-Reactive Protein TSH _ (1) BPH (benign prostatic hyperplasia) Lower urinary tract symptom detail: urinary frequency Lower urinary tract symptom presence: symptoms present Qualified Code(s): N40.1 - Benign prostatic hyperplasia with lower urinary tract symptoms; R35.0 - Frequency of micturition (2) CAD (coronary artery disease) Associated angina: without angina Coronary Disease-Associated Artery/Lesion type: bypass graft [place] vs. transplanted heart: [place] heart Qualified Code( s): I25.810 - Atherosclerosis of coronary artery bypass graft(s) without angina pectoris (3) Diabetes type 2, controlled Chronic kidney disease stage: Diabetes mellitus complication detail: Diabetes mellitus complication status: without complication Diabetes mellitus medical terminologist insulin use: without nursing home use Diabetes mellitus macular edema: Diabetic retinopathy severity: Laterality: Proliferative retinopathy type : Qualified Code(s): E11.9 - Type 2 diabetes mellitus without complications
[2018-06-17] MEDS: HEPARIN SOD 5,000 UNIT/0.5 ML VIAL SQ SCH ×3 (05:54→21:00)
[2018-06-17 06:56] LABS: Estimated Average Glucose 137 mg/dl
[2018-06-17 07:24] LABS: Hematocrit (blood only) 38.8 % (42-52); Hemoglobin 12.7 g/dL (14.0-18.0); Mean Corpuscular Hgb Conc 32.7 g/dL (32-36); Mean Corpuscular Volume 93.9 fL (80-100); Mean Platelet Volume 10.4 fL (7.4-10.4); Platelet Count 133 K/uL (130-400); RDW Coefficient of Variation 16.7 % (11.5-14.5); RDW Standard Deviation 57.9 fL (36.4-46.3); Red Blood Count 4.13 M/uL (4.7-6.1); White Blood Count 9.74 K/uL (4.8-10.8)
[2018-06-17 07:55] LABS: BUN Creatinine Ratio 19.9 (10-20); Calcium 8.6 mg/dl (8.5-10.1); Creatinine Clr Calc Pharmacy 63.9 ml/min; Est GFR (African American) 83.9; Est GFR (Non-African American) 72.4; Potassium 4.2 mmol/L (3.5-5.1)
[2018-06-17] MEDS ORDERED: CANNULA ONE (08:41)
[2018-06-17] MEDS ORDERED: BENZOCAIN/TETRACA/BUTAM SPRAY 200 APPLN/20 GM SPRY EXT ONE (08:41)
[2018-06-17] MEDS ORDERED: MEPERIDINE HCL 50 MG/ML CARP ONE (08:41)
[2018-06-17] MEDS ORDERED: MIDAZOLAM HCL 1 MG/ML 2ML VIAL ONE (08:42)
--- NOTE | 2018-06-17 09:51 | Pre Anesthesia Assessment ---
Date of Service June 17, 2018 Pre Sedation Assessment Vital Signs Temp Pulse Pulse Resp BP BP Pulse Ox 06/17/18 09:17 37.0 C 76 12 118/64 97 06/17/18 06:44 36.8 C 72 17 116/73 96 06/17/18 03:23 36.6 C 79 17 133/76 97 06/17/18 00:00 71 06/16/18 22:49 36.6 C 76 19 113/69 95 06/16/18 19:00 37.0 C 73 19 109/65 95 06/16/18 15:17 36.6 C 71 16 109/64 96 06/16/18 12:10 36.4 C L 59 L 20 118/67 92 Pre-Sedation Airway Assessment Smoking Status: Never smoker Short, Thick Neck: No Thyromental Distance: > or= 3.5 Finger Breadths Oral Cavity: + Dentures Mallampati Class: III ASA: ASA3 NPO Status Date of Last Intake of Fluids: 06/16/18 Time of Last Intake of Fluids: 23:59 Date of Last Intake of Solid Food: 06/16/18 Time of Last Intake of Solid Foods: 23:59 Notes The planned sedation has been discussed with the patient. Informed Consent was obtained. I have identified the patient, determined the appropriateness of sedation and have assessed the patient immediately prior to the procedure. All medicine(s) and interventions are by my order.
--- NOTE | 2018-06-17 10:43 | Infectious Disease Progress Nt ---
Date of Service June 17, 2018 Assessment & Plan (1) Gram positive sepsis: praful reeves for now, LAKSHMI pending. highly concerned for IE. MRI with discitis and osteo. will repeat blood cultures x 2 as admission blood cultures positive. suspect that right knee septic arthritis is source for bacteremia, ongoing infection would also suggest imaging of knee r/o osteo. will need prolonged course of IV abx. will continue to follow. (2) Vertebral osteomyelitis: Subjective pt off of floor for LAKSHMI at time of my exam. Blood cultures from ER growing alpha strep, outpatient cultures also +, awaiting final report. TTE done yesterday, no clear veg, for LAKSHMI today, AVR. repeat cultures pending. remains on ctx and is tolerating well. remains afebrile. wbc improved to 9. ESR 19, crp 0.6. MRI done yesterday, discitis at L2/L3 with verterbal osteo. Physical Exam 2 Vital Signs (Past 24 Hours): Last Vital Signs Temp 37.0 C 06/17/18 09:17 Pulse 70 06/17/18 10:10 Resp 22 06/17/18 10:10 BP 94/48 L 06/17/18 10:10 Pulse Ox 99 06/17/18 10:10 Results & Data Laboratory Results Microbiology 06/15/18 16:52 Blood Blood Culture - Preliminary Alpha strep not S.pne/enteroco 06/15/18 16:52 Blood Blood Culture - Preliminary Alpha strep not S.pne/enteroco
[2018-06-17] MEDS: INSULIN ASPART 100 UNITS/ML 3 ML PEN SC SCH ×4 (11:24→20:59)
[2018-06-17] MEDS: FOLIC ACID 1 MG TAB PO SCH (11:27)
[2018-06-17] MEDS: ALLOPURINOL 300 MG TAB PO SCH (11:27)
[2018-06-17] MEDS: INSULIN GLARGINE SOLOSTAR 100 UNITS/ML 3 ML PEN SC SCH ×2 (11:27→20:58)
[2018-06-17] MEDS: METOPROLOL SUCC 25MG EXT REL TAB PO SCH (11:27)
[2018-06-17] MEDS: TAMSULOSIN HCL 0.4 MG CAP PO SCH (11:27)
[2018-06-17] MEDS: FINASTERIDE 5 MG TAB PO SCH (11:27)
[2018-06-17] MEDS: ASPIRIN 81 MG ECTAB PO SCH (11:27)
[2018-06-17] MEDS: ATORVASTATIN 20 MG TAB PO SCH (11:27)
[2018-06-17] MEDS: FLUOXETINE HCL 10 MG CAP PO SCH (11:27)
[2018-06-17] MEDS: OXYCODONE/ACETAMINOPHEN 5mg/325mg TAB PO PRN (11:40)
[2018-06-17] MEDS: PATIENT'S HEIGHT AND/OR WEIGHT NEEDED SCH ×4 (12:12→13:13)
[2018-06-17] MEDS: cefTRIAXone SODIUM 2,000 MG in DEXTROSE 5% 50 ML IV SCH (12:48)
--- NOTE | 2018-06-17 14:32 | Cardiology Progress Note ---
Date of Service June 17, 2018 Assessment & Plan (1) Gram positive sepsis: Patient presents with 2-month history of gradual decline malaise weight loss setting of recent septic arthritis with strep viridans. Blood cultures are growing 2 bottles of gram-positive cocci. Antibiotic therapies initiated consult with ID placed and appreciated MRI demonstrates discitis/osteomyelitis (2) Bacteremia due to Gram-positive bacteria: (3) History of coronary artery bypass graft x 1: Stable angina pectoris no signs of acute coronary ischemia (4) History of aortic valve replacement: Cardiogram reveals no overt vegetation today bioprosthetic in place with chronic mild perivalvular insufficiency EKG without conduction change Transesophageal echocardiogram performed today demonstrates mild thickening of the aortic prosthesis leaflets without distinct vegetation, not completely excluded. There is lucency around the valve structure consistent with prior studies and trivial perivalvular insufficiency unchanged. Overt endocarditis not identified Patient will require serial imaging and long course antibiotic therapy Subjective Patient seen and examined chart medications telemetry reviewed. He denies any acute complaints other than ongoing back pain. Notes no fevers or chills notes no rigors notes no chest pain or worsening shortness of breath. Notes no radiculopathy Patient tolerated transesophageal echocardiogram this morning without difficulty results as below. No overt evidence of endocarditis though images to be further reviewed Physical Exam 2 Vital Signs (Past 24 Hours): Last Vital Signs Temp 36.6 C 06/17/18 11:32 Pulse 69 06/17/18 11:32 Resp 19 06/17/18 11:32 BP 121/70 06/17/18 11:32 Pulse Ox 95 06/17/18 11:32 Constitutional: + ill appearing and + thin Eyes: PERRL, conjunctivae normal, anicteric sclerae ENMT: external ear and nose normal, oropharynx normal Mallampati Class: III Neck: trachea midline, no thyromegaly Respiratory: normal respiratory effort, lungs clear to auscultation Cardiovascular: Rate/Rhythm: regular rate and regular rhythm Heart Sounds: normal S1, normal S2 and + murmur (Grade 2-3/6 systolic murmur no diastolic murmur no S3 gallop) Palpation: normal PMI Vessels: no JVD Extremities : no pedal edema Gastrointestinal (Abdomen): normal bowel sounds, soft, nontender, no hepatosplenomegaly Neurologic: PERRL, EOMI, accommodation nl, no face palsy, no dysarthria Psychiatric: A+Ox3, euthymic affect Results & Data Laboratory Results Laboratory Results - last 24 hr 06/16/18 06/16/18 06/16/18 05:57 16:36 20:00 WBC RBC Hgb Hct MCV MCH MCHC RDW Std Deviation RDW Coeff of Tin Plt Count MPV Sodium Potassium Chloride Carbon Dioxide Anion Gap BUN Creatinine Est Cr Clr Drug Dosing Est GFR ( Amer) Est GFR (Non-Af Amer) BUN/Creatinine Ratio Glucose POC Glucose 151 H 237 H Estimat Average Glucose 137 Hemoglobin A1c 6.4 H Calcium 06/17/18 06/17/18 06/17/18 07:01 07:01 07:18 WBC 9.74 RBC 4.13 L Hgb 12.7 L Hct 38.8 L MCV 93.9 MCH 30.8 MCHC 32.7 RDW Std Deviation 57.9 H RDW Coeff of Tin 16.7 H Plt Count 133 MPV 10.4 Sodium 135 L Potassium 4.2 Chloride 99 Carbon Dioxide 29 Anion Gap 7.0 BUN 21 H Creatinine 1.04 Est Cr Clr Drug Dosing 63.9 Est GFR ( Amer) 83.9 Est GFR (Non-Af Amer) 72.4 BUN/Creatinine Ratio 19.9 Glucose 76 POC Glucose 77 Estimat Average Glucose Hemoglobin A1c Calcium 8.6 06/17/18 11:23 WBC RBC Hgb Hct MCV MCH MCHC RDW Std Deviation RDW Coeff of Tin Plt Count MPV Sodium Potassium Chloride Carbon Dioxide Anion Gap BUN Creatinine Est Cr Clr Drug Dosing Est GFR ( Amer) Est GFR (Non-Af Amer) BUN/Creatinine Ratio Glucose POC Glucose 83 Estimat Average Glucose Hemoglobin A1c Calcium ECG Additional Comments: 17-JUN-2018 06:31:22 [facility] Normal sinus rhythm Nonspecific ST abnormality Abnormal ECG When compared with ECG of 16-JUN-2018 07:04, No significant change was found
--- NOTE | 2018-06-17 20:15 | Hospitalist Progress Note ---
Date of Service June 17, 2018 Assessment & Plan (1) Bacteremia due to Gram-positive bacteria: Outpatient blood cultures drawn 06/14/18 grew gram + cocci in chains = Streptococcus viridans group History septic arthritis right knee early April with Strep viridans. Did not meet criteria for sepsis at time of admission per current CMS criteria. Repeat blood cultures obtained and patient placed on IV ceftriaxone. ID and Cardiology consulted. Status post bioprosthetic AVR- possible acute endocarditis. Low back pain- lumbar osteomyelitis / discitis as discussed below. Transthoracic echo demonstrated stable function of bioprosthetic AVR with mild perivalvular leak, no apparent vegetations. LAKSHMI demonstrated mild thickening of aortic prosthetic leaflets without distinct vegetation, endocarditis not ruled out. Follow-up imaging recommended. Blood cultures 06/15/18 growing alpha strep, not Strep pneumo or Enterococcus. Continue ceftriaxone; duration of therapy to be determined. (2) Endocarditis: Suspected acute endocarditis as discussed above. (3) Osteomyelitis of lumbar spine: Low back pain associated with bacteremia. MRI demonstrated osteomyelitis / discitis L2-3 without epidural abscess. Discussed with ID and Ortho spine. No need for surgical intervention unless abscess develops. Continue antibiotic management as noted above. (4) History of aortic valve replacement: S/P bioprosthetic aortic valve replacement as discussed above. (5) CAD (coronary artery disease): S/P CABG. No anginal symptoms. Continue aspirin, metoprolol, statin. (6) BPH (benign prostatic hyperplasia): Continue tamsulosin and finasteride. (7) Arthralgia: Recently diagnosed with seronegative RA. Arthralgias may have been due to bacteremia. Hold prednisone and methotrexate. (8) Type 2 diabetes mellitus with hyperglycemia: Usually well-controlled on oral agents. Random blood sugar 359 at time of admission. Hyperglycemia could have been secondary to infection or recent steroid therapy. Hgb A1C 6.4. Lantus / NovoLog per protocol. FBS 77. (9) DVT prophylaxis: SQ heparin. Ambulate. (10) Discharge planning issues: Anticipated discharge to home on IV antibiotics. Family Medicine follow-up with Dr. Marquis. Subjective Recheck for bacteremia and other problems. Pt seen in his room around 1530. Feels about the same. No fever or chills. Less low back pain. No chest pain. No cough or SOB. No nausea, vomiting, diarrhea. No dysuria. Physical Exam 2 Vital Signs (Past 24 Hours): Last Vital Signs Temp 37.2 C 06/17/18 19:42 Pulse 71 06/17/18 19:42 Resp 18 06/17/18 19:42 BP 114/73 06/17/18 19:42 Pulse Ox 99 06/17/18 19:42 Constitutional: no acute distress Respiratory: no respiratory distress Auscultation: lungs clear to auscultation bilaterally Cardiovascular: Rate/Rhythm: regular rate and regular rhythm Heart Sounds: + murmur (III/ systolic murmur at base); no gallop and no cardiac rub Vessels: no JVD Extremities: no calf tenderness and no edema Gastrointestinal (Abdomen): normal bowel sounds, soft, nontender, no hepatosplenomegaly Musculoskeletal: no cyanosis or clubbing, extremities motor strength 5/5 Skin: no rashes, warm and dry Psychiatric: Orientation: alert and oriented x 3 _ (1) CAD (coronary artery disease) Coronary Disease-Associated Artery/Lesion type: bypass graft [place] vs. transplanted heart: [place] heart Associated angina: without angina Qualified Code(s): I25.810 - Atherosclerosis of coronary artery bypass graft(s) without angina pectoris (2) BPH (benign prostatic hyperplasia) Lower urinary tract symptom presence: symptoms present Lower urinary tract symptom detail: urinary frequency Qualified Code(s): N40.1 - Benign prostatic hyperplasia with lower urinary tract symptoms; R35.0 - Frequency of micturition
[2018-06-18] MEDS: HEPARIN SOD 5,000 UNIT/0.5 ML VIAL SQ SCH ×3 (05:41→21:03)
[2018-06-18] MEDS: INSULIN GLARGINE SOLOSTAR 100 UNITS/ML 3 ML PEN SC SCH ×2 (08:14→20:59)
[2018-06-18] MEDS: TAMSULOSIN HCL 0.4 MG CAP PO SCH (08:14)
[2018-06-18] MEDS: METOPROLOL SUCC 25MG EXT REL TAB PO SCH ×2 (08:14→21:06)
[2018-06-18] MEDS: ASPIRIN 81 MG ECTAB PO SCH (08:14)
[2018-06-18] MEDS: FOLIC ACID 1 MG TAB PO SCH (08:15)
[2018-06-18] MEDS: ALLOPURINOL 300 MG TAB PO SCH (08:15)
[2018-06-18] MEDS: FLUOXETINE HCL 10 MG CAP PO SCH (08:16)
[2018-06-18] MEDS: FINASTERIDE 5 MG TAB PO SCH (08:16)
[2018-06-18] MEDS: ATORVASTATIN 20 MG TAB PO SCH (08:16)
[2018-06-18] MEDS: INSULIN ASPART 100 UNITS/ML 3 ML PEN SC SCH ×4 (08:17→21:00)
[2018-06-18] MEDS: cefTRIAXone SODIUM 2,000 MG in DEXTROSE 5% 50 ML IV SCH (08:25)
--- NOTE | 2018-06-18 14:28 | Infectious Disease Progress Nt ---
Date of Service June 18, 2018 Assessment & Plan (1) Gram positive sepsis: no clear veg but with AVR would treat as IE, addtionally with findings of discitis and verterbral osteo, will require prolonged course of IV abx. Continue rocephin 2g daily, min 6 weeks. will need weekly cbc, cmp, esr while on abx. can follow with ID post d/c. (2) Vertebral osteomyelitis: Subjective pt seen in followup, at bedside, feeling much better. still with back pain but improving. no cp, sob, cough, n/v/d/abd pain, appetite improving, denies f/ c. tolerating abx. outpatient cultures growing viridans strep as well. cultures here pending, 2/3 cultures negative to date. LAKSHMI done yesterday, no clear veg but thickening of AV leaflets. wbc 9.7 today, much improved but steroids also stopped. All remaining ros reviewed and are negative Physical Exam 2 Vital Signs (Past 24 Hours): Last Vital Signs Temp 37 C 06/18/18 07:55 Pulse 76 06/18/18 07:55 Resp 16 06/18/18 07:55 BP 110/70 06/18/18 07:55 Pulse Ox 96 06/18/18 07:55 Constitutional: WD/WN, vitals as above Eyes: PERRL, conjunctivae normal, anicteric sclerae ENMT: external ear and nose normal, oropharynx normal Neck: normal visual inspection Respiratory: normal respiratory effort, lungs clear to auscultation Cardiovascular: RRR, no murmur, no edema Gastrointestinal (Abdomen): normal bowel sounds, soft, nontender, no hepatosplenomegaly Musculoskeletal: no cyanosis or clubbing, extremities motor strength 5/5 Skin: no rashes, warm and dry Trauma: + evidence of skin trauma and + abrasion Psychiatric: A+Ox3, euthymic affect Results & Data Laboratory Results Microbiology 06/15/18 16:52 Blood Blood Culture - Preliminary Alpha strep not S.pne/enteroco 06/16/18 08:52 Blood Blood Culture - Preliminary No growth to date. 06/16/18 08:42 Blood Blood Culture - Preliminary No growth to date. 06/15/18 16:52 Blood Blood Culture - Preliminary Alpha strep not S.pne/enteroco
--- NOTE | 2018-06-18 15:15 | Hospitalist Progress Note ---
Date of Service June 18, 2018 Assessment & Plan (1) Bacteremia due to Gram-positive bacteria: Outpatient blood cultures drawn 06/14/18 grew gram + cocci in chains = Streptococcus viridans group, sensitive to ceftriaxone. History septic arthritis right knee early April with Strep viridans. Did not meet criteria for sepsis at time of admission per current CMS criteria. Repeat blood cultures obtained and patient placed on IV ceftriaxone. ID and Cardiology consulted. Status post bioprosthetic AVR- possible acute endocarditis. Transthoracic echo demonstrated stable function of bioprosthetic AVR with mild perivalvular leak, no apparent vegetations. LAKSHMI demonstrated mild thickening of aortic prosthetic leaflets without distinct vegetation, endocarditis not ruled out. Follow-up imaging recommended. Low back pain- lumbar osteomyelitis / discitis as discussed below. Bilat hip pain- check MRI. Blood cultures 06/15/18 growing alpha strep, not Strep pneumo or Enterococcus. PICC tomorrow if repeat blood cultures remain negative. Continue ceftriaxone for at least 6 weeks. (2) Endocarditis: Suspected acute endocarditis as discussed above. (3) Osteomyelitis of lumbar spine: Low back pain associated with bacteremia. MRI demonstrated osteomyelitis / discitis L2-3 without epidural abscess. Discussed with ID and Ortho spine. No need for surgical intervention unless abscess develops. Continue antibiotic management as noted above. (4) History of aortic valve replacement: S/P bioprosthetic aortic valve replacement as discussed above. (5) CAD (coronary artery disease): S/P CABG. No anginal symptoms. Continue aspirin, metoprolol, statin. (6) BPH (benign prostatic hyperplasia): Continue tamsulosin and finasteride. 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 Arthralgias may have been due to bacteremia. Hold prednisone and methotrexate. (8) Type 2 diabetes mellitus with hyperglycemia: Usually well-controlled on oral agents. Random blood sugar 359 at time of admission. Hyperglycemia could have been secondary to infection or recent steroid therapy. Hgb A1C 6.4. Lantus / NovoLog per protocol. FBS 81. (9) DVT prophylaxis: SQ heparin. Ambulate. (10) Discharge planning issues: Anticipated discharge to home on IV antibiotics. Family Medicine follow-up with Dr. Marquis. Cardiology follow-up with Daniel Chun PA-C and Dr. Henderson. ID follow-up with Dr. Perera. Subjective Recheck for bacteremia and other problems. Pt seen in his room around 1530. Feels about the same. No fever or chills. Less low back pain. Experiencing bilateral hip pain. No chest pain. No cough or SOB. No nausea, vomiting, diarrhea. No dysuria. Physical Exam 2 Vital Signs (Past 24 Hours): Last Vital Signs Temp 37.1 C 06/18/18 15:09 Pulse 73 06/18/18 15:09 Resp 18 06/18/18 15:09 BP 113/68 06/18/18 15:09 Pulse Ox 96 06/18/18 15:09 Constitutional: no acute distress Respiratory: no respiratory distress Auscultation: lungs clear to auscultation bilaterally Cardiovascular: Rate/Rhythm: regular rate and regular rhythm Heart Sounds: + murmur (III/ systolic murmur at base); no gallop and no cardiac rub Vessels: no JVD Extremities: no calf tenderness and no edema Gastrointestinal (Abdomen): normal bowel sounds, soft, nontender, no hepatosplenomegaly Musculoskeletal: no cyanosis or clubbing, extremities motor strength 5/5 Skin: no rashes, warm and dry Psychiatric: Orientation: alert and oriented x 3 Results & Data Laboratory Results Laboratory Results - last 24 hr 06/18/18 06/18/18 06/18/18 07:28 12:10 16:02 POC Glucose 81 194 H 194 H 06/18/18 20:34 POC Glucose 254 H _ (1) CAD (coronary artery disease) Coronary Disease-Associated Artery/Lesion type: bypass graft [place] vs. transplanted heart: [place] heart Associated angina: without angina Qualified Code(s): I25.810 - Atherosclerosis of coronary artery bypass graft(s) without angina pectoris (2) BPH (benign prostatic hyperplasia) Lower urinary tract symptom presence: symptoms present Lower urinary tract symptom detail: urinary frequency Qualified Code(s): N40.1 - Benign prostatic hyperplasia with lower urinary tract symptoms; R35.0 - Frequency of micturition
--- NOTE | 2018-06-18 16:03 | XRay Report ---
XR knee RT 3V HISTORY: 72 years-old Male knee pain, recent septic arthritis, r/o osteomyeli acute right-sided knee pain COMPARISON: Right knee radiographs 04/13/2018 TECHNIQUE: 3 views of the right knee FINDINGS: Mildly demineralized appearance of the bones. Moderate lateral compartment with severe medial and mod erate patellofemoral compartment osteoarthritis. Corticated ossifications again noted about the distr ibution of the distal patellar tendon with prominent osteophytic spurring of the tibial tuberosity. M oderate sized joint effusion. Dystrophic calcifications within the region of the distal quadriceps te ndon. Peripheral arterial calcifications are noted. No acute fracture or dislocation. IMPRESSION: 1. No acute fracture or dislocation. 2. Tricompartmental osteoarthritis, severe within the medial compartment. 3. Moderate sized joint effusion. The above report was generated using voice recognition software. It may contain grammatical, syntax o r spelling errors. Electronically signed by: Jean Claude Ramirez M.D. 06/18/2018 4:02 PM
--- NOTE | 2018-06-18 16:15 | Cardiology Progress Note ---
Date of Service June 18, 2018 Assessment & Plan (1) Gram positive sepsis: Patient presents with 2-month history of gradual decline malaise weight loss setting of recent septic arthritis with strep viridans. Blood cultures are growing 2 bottles of gram-positive cocci. Antibiotic therapies initiated consult with ID placed and appreciated MRI demonstrates discitis/osteomyelitis Transesophageal echocardiogram yesterday did not demonstrate overt endocarditis or valvular involvement normal prosthetic valve leaflets mildly thickened without distinct vegetation Given transient atrial tachycardia will increase metoprolol to succinate 12.5 mg twice per day (2) Bacteremia due to Gram-positive bacteria: (3) History of coronary artery bypass graft x 1: Stable angina pectoris no signs of acute coronary ischemia (4) History of aortic valve replacement: Cardiogram reveals no overt vegetation today bioprosthetic in place with chronic mild perivalvular insufficiency EKG without conduction change Transesophageal echocardiogram performed today demonstrates mild thickening of the aortic prosthesis leaflets without distinct vegetation, not completely excluded. There is lucency around the valve structure consistent with prior studies and trivial perivalvular insufficiency unchanged. Overt endocarditis not identified Patient will require serial imaging and long course antibiotic therapy Subjective Patient seen and examined chart medications telemetry reviewed. Patient feels slightly improved today no chest pains tachypalpitations orthopnea PND peripheral edema appetite's improving. Telemetry did demonstrate one short run of atrial tachycardia earlier this morning asymptomatic Physical Exam 2 Vital Signs (Past 24 Hours): Last Vital Signs Temp 37.1 C 06/18/18 15:09 Pulse 73 06/18/18 15:09 Resp 18 06/18/18 15:09 BP 113/68 06/18/18 15:09 Pulse Ox 96 06/18/18 15:09 Constitutional: WD/WN, vitals as above + thin Eyes: PERRL, conjunctivae normal, anicteric sclerae ENMT: external ear and nose normal, oropharynx normal Mallampati Class: III Neck: trachea midline, no thyromegaly Respiratory: normal respiratory effort, lungs clear to auscultation Cardiovascular: Rate/Rhythm: regular rate and regular rhythm Heart Sounds: normal S1, normal S2 and + murmur (Grade 2-3/6 systolic murmur no diastolic murmur no S3 gallop) Palpation: normal PMI Vessels: no JVD Extremities : no pedal edema Gastrointestinal (Abdomen): normal bowel sounds, soft, nontender, no hepatosplenomegaly Neurologic: PERRL, EOMI, accommodation nl, no face palsy, no dysarthria Psychiatric: A+Ox3, euthymic affect
[2018-06-18] MEDS: OXYCODONE/ACETAMINOPHEN 5mg/325mg TAB PO PRN ×2 (16:54→23:54)
[2018-06-19 05:59] LABS: Hemoglobin 11.6 g/dL (14.0-18.0); Mean Corpuscular Hgb Conc 32.2 g/dL (32-36); Mean Corpuscular Volume 94.2 fL (80-100); Mean Platelet Volume 10.7 fL (7.4-10.4); Platelet Count 123 K/uL (130-400); RDW Coefficient of Variation 16.3 % (11.5-14.5); RDW Standard Deviation 55.9 fL (36.4-46.3); Red Blood Count 3.82 M/uL (4.7-6.1); White Blood Count 8.46 K/uL (4.8-10.8)
[2018-06-19] MEDS: OXYCODONE/ACETAMINOPHEN 5mg/325mg TAB PO PRN ×3 (06:15→21:22)
[2018-06-19] MEDS: HEPARIN SOD 5,000 UNIT/0.5 ML VIAL SQ SCH ×3 (06:15→21:15)
[2018-06-19 06:28] LABS: BUN Creatinine Ratio 20.4 (10-20); Calcium 8.1 mg/dl (8.5-10.1); Creatinine Clr Calc Pharmacy 62.1 ml/min; Est GFR (African American) 81.1; Potassium 3.8 mmol/L (3.5-5.1)
[2018-06-19] MEDS: ALLOPURINOL 300 MG TAB PO SCH (07:45)
[2018-06-19] MEDS: ASPIRIN 81 MG ECTAB PO SCH (07:45)
[2018-06-19] MEDS: ATORVASTATIN 20 MG TAB PO SCH (07:45)
[2018-06-19] MEDS: FINASTERIDE 5 MG TAB PO SCH (07:46)
[2018-06-19] MEDS: TAMSULOSIN HCL 0.4 MG CAP PO SCH (07:46)
[2018-06-19] MEDS: FOLIC ACID 1 MG TAB PO SCH (07:46)
[2018-06-19] MEDS: FLUOXETINE HCL 10 MG CAP PO SCH (07:46)
[2018-06-19] MEDS: INSULIN ASPART 100 UNITS/ML 3 ML PEN SC SCH ×4 (07:47→21:14)
[2018-06-19] MEDS: INSULIN GLARGINE SOLOSTAR 100 UNITS/ML 3 ML PEN SC SCH ×2 (07:49→21:14)
[2018-06-19] MEDS: METOPROLOL SUCC 25MG EXT REL TAB PO SCH ×2 (09:10→21:22)
[2018-06-19] MEDS: cefTRIAXone SODIUM 2,000 MG in DEXTROSE 5% 50 ML IV SCH (09:15)
--- NOTE | 2018-06-19 11:20 | Hospitalist Progress Note ---
Date of Service June 19, 2018 Assessment & Plan (1) Bacteremia due to Gram-positive bacteria: Outpatient blood cultures drawn 06/14/18 grew gram + cocci in chains = Streptococcus viridans group, sensitive to ceftriaxone. History septic arthritis right knee early April with Strep viridans. Did not meet criteria for sepsis at time of admission per current CMS criteria. Repeat blood cultures obtained and patient placed on IV ceftriaxone. ID and Cardiology consulted. Status post bioprosthetic AVR- possible acute endocarditis. Transthoracic echo demonstrated stable function of bioprosthetic AVR with mild perivalvular leak, no apparent vegetations. LAKSHMI demonstrated mild thickening of aortic prosthetic leaflets without distinct vegetation, endocarditis not ruled out. Follow-up imaging recommended. Low back pain- lumbar osteomyelitis / discitis as discussed below. Bilat hip pain- check MRI. Blood cultures 06/15/18 growing alpha strep, not Strep pneumo or Enterococcus. PICC to be placed. Continue ceftriaxone for at least 6 weeks. (2) Endocarditis: Suspected acute endocarditis as discussed above. (3) Osteomyelitis of lumbar spine: Low back pain associated with bacteremia. MRI demonstrated osteomyelitis / discitis L2-3 without epidural abscess. Discussed with ID and Ortho spine. No need for surgical intervention unless abscess develops. Repeat MRI recommended in about 4 weeks. Continue antibiotic management as noted above. (4) History of aortic valve replacement: S/P bioprosthetic aortic valve replacement as discussed above. (5) CAD (coronary artery disease): S/P CABG. No anginal symptoms. Continue aspirin, metoprolol, statin. (6) BPH (benign prostatic hyperplasia): Continue tamsulosin and finasteride. 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 Arthralgias may have been due to bacteremia. Hold prednisone and methotrexate. (8) Type 2 diabetes mellitus with hyperglycemia: Usually well-controlled on oral agents. Random blood sugar 359 at time of admission. Hyperglycemia could have been secondary to infection or recent steroid therapy. Hgb A1C 6.4. Lantus / NovoLog per protocol. FBS 85. (9) DVT prophylaxis: SQ heparin. Ambulate. (10) Discharge planning issues: Anticipated discharge to home on IV antibiotics. Family Medicine follow-up with Dr. Marquis. Cardiology follow-up with Daniel Chun PA-C and Dr. Henderson. ID follow-up with Dr. Perera. Subjective Recheck for bacteremia and other problems. Pt seen in his room around 1100. No fever or chills. Less low back pain. No chest pain. No cough or SOB. No nausea, vomiting, diarrhea. No dysuria. Physical Exam 2 Vital Signs (Past 24 Hours): Last Vital Signs Temp 36.5 C 06/19/18 11:16 Pulse 70 06/19/18 11:16 Resp 16 06/19/18 11:16 BP 116/72 06/19/18 11:16 Pulse Ox 98 06/19/18 11:16 Constitutional: no acute distress Respiratory: no respiratory distress Auscultation: lungs clear to auscultation bilaterally Cardiovascular: Rate/Rhythm: regular rate and regular rhythm Heart Sounds: + murmur (III/ systolic murmur at base); no gallop and no cardiac rub Vessels: no JVD Extremities: no calf tenderness and no edema Gastrointestinal (Abdomen): normal bowel sounds, soft, nontender, no hepatosplenomegaly Musculoskeletal: no cyanosis or clubbing, extremities motor strength 5/5 Skin: no rashes, warm and dry Psychiatric: Orientation: alert and oriented x 3 Results & Data Laboratory Results Laboratory Results - last 24 hr 06/18/18 06/19/18 06/19/18 20:34 05:14 05:14 WBC 8.46 RBC 3.82 L Hgb 11.6 L Hct 36.0 L MCV 94.2 MCH 30.4 MCHC 32.2 RDW Std Deviation 55.9 H RDW Coeff of Tin 16.3 H Plt Count 123 L MPV 10.7 H Sodium 136 Potassium 3.8 Chloride 102 Carbon Dioxide 29 Anion Gap 5.0 BUN 22 H Creatinine 1.07 Est Cr Clr Drug Dosing 62.1 Est GFR ( Amer) 81.1 Est GFR (Non-Af Amer) 70.0 BUN/Creatinine Ratio 20.4 H Glucose 90 POC Glucose 254 H Calcium 8.1 L Heparin-PF4 Ab Screen 06/19/18 06/19/18 06/19/18 07:38 09:15 11:41 WBC RBC Hgb Hct MCV MCH MCHC RDW Std Deviation RDW Coeff of Tin Plt Count MPV Sodium Potassium Chloride Carbon Dioxide Anion Gap BUN Creatinine Est Cr Clr Drug Dosing Est GFR ( Amer) Est GFR (Non-Af Amer) BUN/Creatinine Ratio Glucose POC Glucose 85 121 H Calcium Heparin-PF4 Ab Screen Negative 06/19/18 16:38 WBC RBC Hgb Hct MCV MCH MCHC RDW Std Deviation RDW Coeff of Tin Plt Count MPV Sodium Potassium Chloride Carbon Dioxide Anion Gap BUN Creatinine Est Cr Clr Drug Dosing Est GFR ( Amer) Est GFR (Non-Af Amer) BUN/Creatinine Ratio Glucose POC Glucose 153 H Calcium Heparin-PF4 Ab Screen _ (1) CAD (coronary artery disease) Coronary Disease-Associated Artery/Lesion type: bypass graft [place] vs. transplanted heart: [place] heart Associated angina: without angina Qualified Code(s): I25.810 - Atherosclerosis of coronary artery bypass graft(s) without angina pectoris (2) BPH (benign prostatic hyperplasia) Lower urinary tract symptom presence: symptoms present Lower urinary tract symptom detail: urinary frequency Qualified Code(s): N40.1 - Benign prostatic hyperplasia with lower urinary tract symptoms; R35.0 - Frequency of micturition
[2018-06-19] MEDS ORDERED: HYDROmorphone INJ 1 MG/ML SYRINGE IV PRN (11:21)
--- NOTE | 2018-06-19 12:31 | Orthopedic Consultation ---
Date of Consultation June 19, 2018 Assessment & Plan (1) Osteomyelitis of lumbar spine: (2) Bacteremia: (3) Arthritis of knee: Mr. Ordoñez was seen and examined by Dr. Harden today as well. At this time his knee's are not really bothering him and there's no significant effusion. He does have advanced knee arthritis. We did not recommend aspirating either knee. Certainly if he develops more swelling/symptoms from his knee's this could be considered. He has an MRI of the pelvis/hips pending but we feel the lumbar discitis/osteomyelitis and back pain explain his hip complaints. His hip exam today was benign. We discussed his lumbar spine MRI findings and the patient said he is waiting to see Dr. Montgomery for further recommendations regarding that. He is also getting IV antibiotics. Please call [phone] with any further orthopedic questions. History of Present Illness Reason for Consultation: Right knee pain, recurrent effusions, recent septic knee Attending Physician: Drew Lane MD History of Present Illness Mr. Ordoñez is a 72 y/o male that we were consulted to see regarding his right knee. He was admitted to the hospitalist service several days ago with bacteremia and found to have osteomyleitis of his lumbar spine. Infectious disease service and cardiology have been following him during this admission. He is receiving IV antiobiotics. He had multiple knee aspirations in the clinic over the past couple of months. He did have positive cultures for strep viridans and was given 10 days of keflex. His last knee aspiration was approximately 6 weeks ago. He has advanced knee arthritis and has some symptoms from that, specifically some pain and crunching when walking. However, right know his knee's are not really bothering him. He complains of low back pain and hip pain. No groin pain. His wbc is normal today and ESR from 3 was 19. Allergies Allergy/AdvReac Type Severity Reaction Status Date / Time chlorhexidine Allergy Mild Rash Verified 06/15/18 19:56 naproxen Allergy Mild RASH Verified 04/13/18 14:10 Penicillins Allergy Unknown unknown Verified 06/15/18 19:56 sulfamethoxazole Allergy Unknown Verified 06/15/18 19:56 Home Medications Home Medications Medication Instructions Recorded Confirmed Type allopurinol 300 mg PO DAILY 04/13/18 06/15/18 History aspirin [Aspir-81] 81 mg PO DAILY 04/13/18 06/15/18 History atorvastatin 20 mg PO DAILY 04/13/18 06/15/18 History fluoxetine 10 mg PO DAILY 04/13/18 06/15/18 History metformin 500 mg PO BID 04/13/18 06/15/18 History metoprolol succinate 12.5 mg PO DAILY 04/13/18 06/15/18 History triamcinolone acetonide 1 applic TOPICAL BID PRN 04/13/18 06/15/18 History finasteride 5 mg PO DAILY 06/15/18 06/15/18 History folic acid 1 mg PO DAILY 06/15/18 06/15/18 History lorazepam 1 mg PO Q6H PRN 06/15/18 06/15/18 History methotrexate sodium 4 tab PO FR 06/15/18 06/15/18 History methylprednisolone 8 mg PO UD 06/15/18 06/15/18 History oxycodone-acetaminophen 1 tab PO Q6H PRN 06/15/18 06/15/18 History tamsulosin 0.4 mg PO DAILY 06/15/18 06/15/18 History Patient History Medical History Chronic rhinitis (Chronic) Sensorineural hearing loss (SNHL), bilateral (Chronic) Bruxism, sleep-related (Chronic) Diabetes type 2, controlled (Chronic) Dyslipidemia (Chronic) Aortic stenosis, moderate (Chronic) "s/p aortic valve replacement with prosthetic valve 04/2015" CKD (chronic kidney disease) stage 3, GFR 30-59 ml/min (Chronic) Meniere's disease (Chronic) CAD (coronary artery disease) (Chronic) "s/p CABG x 1 " Patient is [facility] (Chronic) Surgical History History of coronary artery bypass graft x 1 (Resolved) "04/14/[address] Justino Colunga" On 07/07/15 18:18 Diamond Reed wrote "04/14/2015" History of aortic valve replacement (Resolved) "[facility] 04/2015 " History of left inguinal hernia repair (Resolved) "[facility] Dr. Okeefe 1986" History of right inguinal hernia repair (Resolved) "1992; R inguinal hernia repair with repair of recurrent L inguinal hernia" Family History Mother , 94 FH: diabetes mellitus Ovarian ca Father , age 73 FHx: emphysema Grandfather (Maternal) , age 47 Heart attack Social History marital status: Current Living Situation: Spouse Other Information That Helps Us Care for You: Yes Feels Safe at Home: Yes Smoking Status: Never smoker Hx Alcohol Use: Yes Alcohol Intake Frequency: holidays/special occasions only Alcohol Intake Frequency Comment: very rare Hx Substance Use: No Beliefs That Will Affect Care: Jain Jain Beliefs: Jehovah witness Communication Ability: Effective Physical Exam 2 Vital Signs (Past 24 Hours): Last Vital Signs Temp 36.5 C 06/19/18 11:16 Pulse 70 06/19/18 11:16 Resp 16 06/19/18 11:16 BP 116/72 06/19/18 11:16 Pulse Ox 98 06/19/18 11:16 Musculoskeletal: He is alert and oriented. NAD. He has good ROM of bilateral hips. No stiffness. He said he has a "twinge of pain" with motion. He has no significant knee effusion of either knee at this time. He has some stiffness with ROM of his knee's, approx 5-120 degrees. He has multiple scabs and scratches all over his extremities. No erythema or warmth to the knee's. Results & Data Diagnostic Findings MRI of the lumbar spine shows discitis/osteomyelitis of L2-L3. right knee xrays show advanced djd
[2018-06-19] MEDS: ACETAMINOPHEN 325 MG TAB PO PRN (12:37)
--- NOTE | 2018-06-19 14:46 | Infectious Disease Progress Nt ---
Date of Service June 19, 2018 Assessment & Plan (1) Gram positive sepsis: no clear veg but with AVR and known discitis and verterbal osteo will receive prolonged course of IV abx. Continue rocephin 2g daily, min 6 weeks. will need weekly cbc, cmp, esr while on abx. can plan to have MRI l spine in 4- 5 weeks to assess resolution. can follow with ID post d/c. for picc line. (2) Vertebral osteomyelitis: Subjective pt wtih poor appetite today. no f/c. repeat cultures negative. for picc line. tolerating ctx. knee x ray done, moderate effusion, ortho eval obtained, no plan for aspiration as no signs of active knee infection. discussed with ortho. pt denies knee pain/swelling. having hip pain, was to have MRI yesterday but could not lie on table due to pain. Pt states ortho does not feel MRI needed at this time as pain may be due to discitis/ostoemyelitis. wbc 8.4. no cp, sob, cough, no v/d/abd pain. ambulating without difficulty. all remaining ros reviewed and are negative. Physical Exam 2 Vital Signs (Past 24 Hours): Last Vital Signs Temp 36.5 C 06/19/18 11:16 Pulse 70 06/19/18 11:16 Resp 16 06/19/18 11:16 BP 116/72 06/19/18 11:16 Pulse Ox 98 06/19/18 11:16 Constitutional: WD/WN, vitals as above Eyes: PERRL, conjunctivae normal, anicteric sclerae ENMT: external ear and nose normal, oropharynx normal Neck: normal visual inspection Respiratory: normal respiratory effort, lungs clear to auscultation Cardiovascular: RRR, no murmur, no edema Gastrointestinal (Abdomen): normal bowel sounds, soft, nontender, no hepatosplenomegaly Musculoskeletal: no cyanosis or clubbing, extremities motor strength 5/5 b/ l knees with no warmth, swelling, erythema, tenderness Skin: no rashes, warm and dry Trauma: + evidence of skin trauma and + abrasion Psychiatric: A+Ox3, euthymic affect Results & Data Laboratory Results Microbiology 06/15/18 16:52 Blood Blood Culture - Preliminary Alpha strep not S.pne/enteroco 06/16/18 08:52 Blood Blood Culture - Preliminary No growth to date. 06/16/18 08:42 Blood Blood Culture - Preliminary No growth to date. 06/15/18 16:52 Blood Blood Culture - Preliminary Alpha strep not S.pne/enteroco
--- NOTE | 2018-06-19 15:24 | Cardiology Progress Note ---
Date of Service June 19, 2018 Assessment & Plan (1) Gram positive sepsis: Patient presents with 2-month history of gradual decline malaise weight loss setting of recent septic arthritis with strep viridans. Blood cultures are growing 2 bottles of gram-positive cocci. Antibiotic therapies initiated consult with ID placed and appreciated MRI demonstrates discitis/osteomyelitis Transesophageal echocardiogram yesterday did not demonstrate overt endocarditis or valvular involvement normal prosthetic valve leaflets mildly thickened without distinct vegetation Patient clinically stable by exam no increase or change in murmur no abnormalities on telemetry we will continue current medical therapies with anticipated extended course of antibiotic therapy plan echocardiogram 2 weeks time (2) Bacteremia due to Gram-positive bacteria: (3) History of coronary artery bypass graft x 1: Stable angina pectoris no signs of acute coronary ischemia (4) History of aortic valve replacement: Cardiogram reveals no overt vegetation today bioprosthetic in place with chronic mild perivalvular insufficiency EKG without conduction change Transesophageal echocardiogram performed demonstrates mild thickening of the aortic prosthesis leaflets without distinct vegetation, not completely excluded. There is lucency around the valve structure consistent with prior studies and trivial perivalvular insufficiency unchanged. Overt endocarditis not identified Patient will require serial imaging and long course antibiotic therapy Subjective Patient seen and examined chart medications telemetry reviewed. No cardiac complaints. Telemetry reveals no arrhythmias Physical Exam 2 Vital Signs (Past 24 Hours): Last Vital Signs Temp 36.7 C 06/19/18 15:19 Pulse 62 06/19/18 15:19 Resp 20 06/19/18 15:19 BP 110/71 06/19/18 15:19 Pulse Ox 98 06/19/18 15:19 Constitutional: WD/WN, vitals as above + ill appearing and + thin Eyes: PERRL, conjunctivae normal, anicteric sclerae ENMT: external ear and nose normal, oropharynx normal Mallampati Class: III Neck: trachea midline, no thyromegaly Respiratory: normal respiratory effort, lungs clear to auscultation Cardiovascular: Rate/Rhythm: regular rate and regular rhythm Heart Sounds: normal S1, normal S2 and + murmur (Grade 2-3/6 systolic murmur no diastolic murmur no S3 gallop) Palpation: normal PMI Vessels: no JVD Extremities : no pedal edema Gastrointestinal (Abdomen): normal bowel sounds, soft, nontender, no hepatosplenomegaly Neurologic: PERRL, EOMI, accommodation nl, no face palsy, no dysarthria Psychiatric: A+Ox3, euthymic affect
--- NOTE | 2018-06-19 18:49 | XRay Report ---
XR chest 1V portable CLINICAL HISTORY: picc placement right arm COMPARISON STUDY: 04/13/2018 FINDINGS: PICC placed in the superior vena cava. No evidence for pneumothorax. Slightly progressive p leural reactive changes left lung base. IMPRESSION: PICC catheter place in the superior vena cava. No evidence for pneumothorax. The above report was generated using voice recognition software. It may contain grammatical, syntax or spelling errors. Electronically signed by: Daniel Sandoval M.D. 06/19/2018 6:47 PM
[2018-06-20] MEDS: HEPARIN SOD 5,000 UNIT/0.5 ML VIAL SQ SCH (06:00)
[2018-06-20] MEDS: OXYCODONE/ACETAMINOPHEN 5mg/325mg TAB PO PRN ×2 (06:02→12:08)
[2018-06-20] MEDS: METOPROLOL SUCC 25MG EXT REL TAB PO SCH (07:29)
[2018-06-20] MEDS: ALLOPURINOL 300 MG TAB PO SCH (07:29)
[2018-06-20] MEDS: ATORVASTATIN 20 MG TAB PO SCH (07:29)
[2018-06-20] MEDS: INSULIN GLARGINE SOLOSTAR 100 UNITS/ML 3 ML PEN SC SCH (07:30)
[2018-06-20] MEDS: TAMSULOSIN HCL 0.4 MG CAP PO SCH (07:30)
[2018-06-20] MEDS: FLUOXETINE HCL 10 MG CAP PO SCH (07:30)
[2018-06-20] MEDS: ASPIRIN 81 MG ECTAB PO SCH (07:30)
[2018-06-20] MEDS: FINASTERIDE 5 MG TAB PO SCH (07:30)
[2018-06-20] MEDS: FOLIC ACID 1 MG TAB PO SCH (07:30)
[2018-06-20] MEDS: INSULIN ASPART 100 UNITS/ML 3 ML PEN SC SCH ×2 (07:32→12:46)
[2018-06-20] MEDS: cefTRIAXone SODIUM 2,000 MG in DEXTROSE 5% 50 ML IV SCH (09:36)
--- NOTE | 2018-06-20 09:46 | Hospitalist Progress Note ---
Date of Service June 20, 2018 Assessment & Plan (1) Bacteremia due to Gram-positive bacteria: Outpatient blood cultures drawn 06/14/18 grew gram + cocci in chains = Streptococcus viridans group, sensitive to ceftriaxone. History septic arthritis right knee early April with Strep viridans. Did not meet criteria for sepsis at time of admission per current CMS criteria. Repeat blood cultures obtained and patient placed on IV ceftriaxone. ID and Cardiology consulted. Status post bioprosthetic AVR- possible acute endocarditis. Transthoracic echo demonstrated stable function of bioprosthetic AVR with mild perivalvular leak, no apparent vegetations. LAKSHMI demonstrated mild thickening of aortic prosthetic leaflets without distinct vegetation, endocarditis not ruled out. Follow-up imaging recommended. Low back pain- lumbar osteomyelitis / discitis as discussed below. Bilat hip pain- check MRI. Blood cultures 06/15/18 growing alpha strep, not Strep pneumo or Enterococcus. PICC placed 06/19. Continue ceftriaxone for at least 6 weeks. 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 (3) Osteomyelitis of lumbar spine: Low back pain associated with bacteremia. MRI demonstrated osteomyelitis / discitis L2-3 without epidural abscess. Discussed with ID and Ortho Spine. No need for surgical intervention unless abscess develops. Repeat MRI recommended in about 4 weeks. Continue antibiotic management as noted above. (4) History of aortic valve replacement: S/P bioprosthetic aortic valve replacement as discussed above. (5) CAD (coronary artery disease): S/P CABG. No anginal symptoms. Continue aspirin, metoprolol, statin. (6) BPH (benign prostatic hyperplasia): Continue tamsulosin and finasteride. 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 Arthralgias may have been due to bacteremia. Hold prednisone and methotrexate. (8) Type 2 diabetes mellitus with hyperglycemia: Usually well-controlled on oral agents. Random blood sugar 359 at time of admission. Hyperglycemia could have been secondary to infection or recent steroid therapy. Hgb A1C 6.4. Received Lantus / NovoLog per protocol. FBS day of discharge was 113. Discharge on usual regimen. (9) DVT prophylaxis: SQ heparin. Ambulating. (10) Discharge planning issues: Discharge to home on IV antibiotics. Family Medicine follow-up with Dr. Marquis. Cardiology follow-up with Daniel Chun PA-C and Dr. Henderson. ID follow-up with Dr. Perera. Subjective Recheck for bacteremia and other problems. Pt seen in his room around 0930. His was visiting. PICC placed yesterday. No fever or chills. Less low back pain. No chest pain. No cough or SOB. No nausea, vomiting, diarrhea. No dysuria. Physical Exam 2 Vital Signs (Past 24 Hours): Last Vital Signs Temp 36.7 C 06/20/18 07:27 Pulse 62 06/20/18 07:27 Resp 18 06/20/18 07:27 BP 105/64 06/20/18 07:27 Pulse Ox 96 06/20/18 07:27 Constitutional: no acute distress Respiratory: no respiratory distress Auscultation: lungs clear to auscultation bilaterally Cardiovascular: Rate/Rhythm: regular rate and regular rhythm Heart Sounds: + murmur (III/ systolic murmur at base); no gallop and no cardiac rub Vessels: no JVD Extremities: no calf tenderness and no edema Gastrointestinal (Abdomen): normal bowel sounds, soft, nontender, no hepatosplenomegaly Musculoskeletal: Extremities: + upper extremity abnormal to inspection (PICC RUE) motor strength lower extremities 5/5 bilat Skin: no rashes, warm and dry Psychiatric: Orientation: alert and oriented x 3 Results & Data Laboratory Results Laboratory Results - last 24 hr 06/19/18 06/19/18 06/20/18 16:38 20:17 07:27 POC Glucose 153 H 96 113 H 06/20/18 11:39 POC Glucose 157 H Microbiology 06/15/18 16:52 Blood Blood Culture - Final Viridans streptococcus group 06/15/18 16:52 Blood Blood Culture - Final Viridans streptococcus group 06/16/18 08:52 Blood Blood Culture - Preliminary No growth to date. 06/16/18 08:42 Blood Blood Culture - Preliminary No growth to date. _ (1) BPH (benign prostatic hyperplasia) Lower urinary tract symptom detail: urinary frequency Lower urinary tract symptom presence: symptoms present Qualified Code(s): N40.1 - Benign prostatic hyperplasia with lower urinary tract symptoms; R35.0 - Frequency of micturition (2) CAD (coronary artery disease) Associated angina: without angina Coronary Disease-Associated Artery/Lesion type: bypass graft [place] vs. transplanted heart: [place] heart Qualified Code( s): I25.810 - Atherosclerosis of coronary artery bypass graft(s) without angina pectoris
[2018-06-20] MEDS: ACETAMINOPHEN 325 MG TAB PO PRN (12:08)
--- NOTE | 2018-06-20 13:45 | Discharge Summary ---
Date of Service Date of admission: 06/15/18 Date of discharge: 06/20/18 Admission HPI Per Admitting Provider This is a 72-year-old white male who has a significant past medical history of CAD with history of CABG x1, congenital bicuspid aortic valve s/p prosthetic AVR 2015, T2 DM, HLD, CKD stage III, gout, sensorineural hearing loss bilaterally, Mnire's disease who presents to [facility] as a direct admission from supervisor grips Dr. Henderson secondary to positive blood cultures gram-positive cocci chains. Unfortunately patient has been suffering from complex medical course since 04/2018. Initially symptoms started as right knee pain in which on 04/13/18 patient underwent joint aspiration by Dr. Giles. At this time joint aspiration appeared to be inflammatory in nature also growing 20k pmn and rare gram-positive cocci. 04/18/19 pt underwent second joint aspiration due to + rare gram positive cocci noted. There was some concern for contamination; however appears 2nd knee aspirate also grew gram + cocci. He was placed on 10 day course of Keflex 500mg tid and completed. Unfortunately patient's right knee pain continued and extended to left knee pain , bilateral hip pain, shoulder pain and low back pain. Symptoms were limiting patient's ambulation and affecting quality of life. Subsequently he has also had approximately 30 pound weight loss since February 2018, most recently 19lbs in 2 weeks. Further complaints include increased fatigue, decreased appetite, early satiety, increased urinary urgency, freq and incontinence of urine. He has been following closely with PCP Dr. Marquis. Given above complaints patient had extensive lab work which revealed elevated ESR 112. Given inflammatory marker elevation patient was referred to rheumatology Dr. Ewing and placed on prednisone taper. Rheum eval 05/23/18 concern for seronegative inflammatory arthritis given low titer RF and negative anti-CCP with multiple large joint involvement. Patient did exhibit some relief with prednisone therefore Dr. Ewing placed on further prednisone taper and 10 mg of methotrexate weekly. Despite treatment patient symptoms continued in which PCP referred patient to cardiology for AFTT. He was seen by Daniel Chun PA-C 06/14 given symptoms. Further work up ordered including blood cultures given pt hx of prosthetic valve. Blood cultures returned today + gram-positive cocci in chains x2 bottles. Also significant lab work included leukocytosis 17 K, hemoglobin 13.5, hematocrit 42.1, platelet 154, ferritin 575, iron 41, T sat 20 , TIBC 210, WNL vitamin B12 and folic acid. Currently complains of significant low back pain w/o radicular symptoms ( developed post R knee pain), weakness, difficulty ambulating, diffuse arthralgias, urinary freq/urg and incontinence, 30lb weight loss. Currently ambulates with walker to do simple adls. Back in Fall 2018 patient was able to ambulate normally w/o device walking 2-3 miles daily. He does have uppler/lower ext excoriation rash, patient states he scratches constantly and has been going on for years. Uses triamcinolone cream. He denies f/c/s, dizziness, syncope, n/ v/d, hematuria, melena, hematochezia, constipation. Appetite has been very poor , little taste. Has been drinking fluids. at bedside and very concerned. He was to undergo colonoscopy 04/30 but has been cancelled due to low back pain and weakness. Pain has been mostly controlled with percocet bid, "this is how I get through the day." Admission Exam Per Admitting Provider Gen: Thin, M, pale, NAD, sitting up in bed, pleasant, conversing easily Head: Normocephalic, Atraumatic Eyes: Sclera normal, no conjunctival injection, PERRLA, EOMI ENT: Gross hearing intact, normal pharynx, mucous membranes moist Neck: supple, no adenopathy, No JVD, no bruit, Resp: Clear to auscultation b/l but decreased at bases, no wheeze, rales, rhonchi. Normal insp/exp effort, no accessory muscle use CV: Regular rate, regular rhythm, 3/6 RICHARD noted, no rub, gallop, or ectopy Abd: +BS x 4, soft, nontender, nondistended Musculoskeletal:+ muscle wasting. 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, reflex 2/4, no clonus Extremities: No edema bilaterally Skin: warm, moist, no rash, negative turgor, cap refill < 2sec Neuro: Alert and oriented x 3, speech normal, good mood/affect, cran nerve 2-12 intact grossly : deferred Principal Diagnosis Streptococcus viridans bacteremia suspected endocarditis aortic bioprosthetic valve discitis / osteomyelitis L2-3 weight loss Discharge Data Allergies Allergy/AdvReac Type Severity Reaction Status Date / Time chlorhexidine Allergy Mild Rash Verified 06/15/18 19:56 naproxen Allergy Mild RASH Verified 04/13/18 14:10 Penicillins Allergy Unknown unknown Verified 06/15/18 19:56 sulfamethoxazole Allergy Unknown Verified 06/15/18 19:56 Consultations 06/15/18 16:20 Consult Cardiology Routine Consult Infectious Diseases Routine 06/15/18 16:23 Consult Case Management - Discharge Planning Routine 06/19/18 08:00 Consult Orthopedic Surgery Routine Procedures Performed Operation Date: 06/17/18 09:00 Actual Procedures p Transesophageal Echo - Spike Henderson MD Ordered Studies 06/16/18 17:19 MR lumbar spine wo/w con Urgent Hospital Course (1) Bacteremia due to Gram-positive bacteria: Outpatient blood cultures drawn 06/14/18 grew Streptococcus viridans group, sensitive to ceftriaxone. History septic arthritis right knee early April with Strep viridans. Did not meet criteria for sepsis at time of admission per current CMS criteria. Repeat blood cultures obtained and patient placed on IV ceftriaxone. ID and Cardiology consulted. Status post bioprosthetic AVR- concern re: possible acute endocarditis. Transthoracic echo demonstrated stable function of bioprosthetic AVR with mild perivalvular leak, no apparent vegetations. LAKSHMI demonstrated mild thickening of aortic prosthetic leaflets without distinct vegetation, endocarditis not ruled out. Follow-up imaging recommended. Low back pain- lumbar osteomyelitis / discitis as discussed below. Blood cultures 06/15/18 grew Strep viridans. Repeat blood cultures drawn 06/16/18 negative at time of discharge. PICC placed RUE 06/19/18. Continue ceftriaxone for at least 6 weeks. Weekly labs (CBC, CMP, ESR) requested through home health nursing. 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 (3) Osteomyelitis of lumbar spine: Low back pain associated with bacteremia. MRI demonstrated osteomyelitis / discitis L2-3 without epidural abscess. Discussed with ID and Ortho Spine. No need for surgical intervention unless abscess develops. Repeat MRI recommended in about 4 weeks. Continue antibiotic management as noted above. (4) History of aortic valve replacement: S/P bioprosthetic aortic valve replacement as discussed above. (5) CAD (coronary artery disease): S/P CABG. No anginal symptoms. Continue aspirin, metoprolol, statin. (6) BPH (benign prostatic hyperplasia): Continue tamsulosin and finasteride. 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 Arthralgias may have been due to bacteremia. Hold prednisone and methotrexate. (8) Type 2 diabetes mellitus with hyperglycemia: Usually well-controlled on oral agents. Random blood sugar 359 at time of admission. Hyperglycemia could have been secondary to infection or recent steroid therapy. Hgb A1C 6.4. Received Lantus / NovoLog per protocol. FBS day of discharge was 113. Discharge on usual regimen. (9) Weight loss: Patient has lost significant amount of weight over past few months. Weight loss may be due to Strep viridans infection. However, must consider other etiologies. Nutritional supplementation discussed. Follow weights. Due for colonoscopy- pt to schedule when feeling better. (10) DVT prophylaxis: SQ heparin. Ambulating. (11) Discharge planning issues: Discharge to home on IV antibiotics. Family Medicine follow-up with Dr. Marquis. Cardiology follow-up with Daniel Chun PA-C and Dr. Henderson. ID follow-up with Dr. Perera. Total Time Total Time Spent Total Time Spent (In Minutes): 40 Discharge Plan Discharge Items Patient Disposition: Home - Home Health Services Reason For Visit: positive blood cultures Discharge Diagnosis: Strep infection in blood infection in disc and bones of low back (lumbar discitis, osteomyelitis) possible infection of heart valve (endocarditis) Condition: Good Discharge Goals: Decrease discomfort, Improve disease control and Improve function Activity: As commented below Activity Comment: as tolerated with care Lifting: No more than 10 pounds Non-emergency contact: Primary Care Provider, Hospitalist and Electric Serviceman Call non-emergency contact if: you have any medication questions, your symptoms worsen, your pain is not controlled and your temperature is above 101 Follow-up/Referrals: Lizzy Perera DO [Physician] - (Please call office for appointment in about 3 weeks.) Sonja Marquis MD [Primary Care Provider] - (06/24/2018 11:20 AM Sonja Marquis MD) Spike Henderson MD [Family Provider] - (07/16/2018 3:30 PM Daniel Chun PA-C Cardiology, [facility]) Diet: Carb Consistent or DM2 and Heart Healthy Diet Comment: Eat health, well-balanced diet with nutritional supplements like Ensure. Addtl Provider Instructions: Stop taking methylprednisolone and methotrexate. Please ask Dr. Marquis to schedule repeat MRI of back to be done around 07/12/18. Please ask Dr. Marquis to schedule colonoscopy when you are feeling better. Seek medical attention if you have: * temperature above 101 * chest pain or trouble breathing * abdominal pain, nausea, vomiting * diarrhea, dark stools or bloody stools * worsening back or hip pain * weakness of legs * problems with bowel or bladder function * any unanswered questions or concerns Call 911 if symptoms are severe. Call if you have any questions or problems. My cell # is [phone]. You can also reach a [facility] hospitalist on duty at [facility] 24 hours a day by calling [phone]. Prescriptions: New ceftriaxone 2 gram recon soln 2 gm IV DAILY Qty: 36 RF: 0 oxycodone-acetaminophen 5-325 mg Tablet 1 tab PO Q6H PRN (Reason: pain, severe) Qty: 28 RF: 0 Continue metformin 500 mg tablet 500 mg PO BID RF: 0 atorvastatin 20 mg tablet 20 mg PO DAILY RF: 0 aspirin [Aspir-81] 81 mg Tablet,Delayed Release (Dr/Ec) 81 mg PO DAILY RF: 0 triamcinolone acetonide 0.1 % ointment 1 applic Topical BID PRN (Reason: .) RF: 0 fluoxetine 10 mg capsule 10 mg PO DAILY RF: 0 allopurinol 300 mg tablet 300 mg PO DAILY RF: 0 metoprolol succinate 25 mg tablet extended release 24 hr 12.5 mg PO DAILY RF: 0 lorazepam 1 mg Tablet 1 mg PO Q6H PRN (Reason: Vertigo) RF: 0 finasteride 5 mg Tablet 5 mg PO DAILY RF: 0 tamsulosin 0.4 mg Capsule 0.4 mg PO DAILY RF: 0 Discontinued methotrexate sodium 2.5 mg Tablet 4 tab PO FR RF: 0 folic acid 1 mg Tablet 1 mg PO DAILY RF: 0 methylprednisolone 8 mg Tablet 8 mg PO UD RF: 0 Stand-Alone Forms: My [facility] Krames/Other Patient Handouts: Osteomyelitis Dc, PICC Line Flush Home, Endocarditis Infective Discharge Orders: Discharge Order (Routine); Ordered 06/20/18 Ordered By: Drew Lane Admission Data Admit Date/Time: 06/15/18 15:54 Attending Provider: Drew Lane Admit Provider: Drew Lane Primary Care Provider: Sonja Marquis Other Providers: Lizzy Perera ; Spike Henderson ; Marbin Harden Service: Telemetry Other Interventions: Discharge Summary Assessment (RN) Last Done: 06/20/18 11:13 DC Date/Time DO NOT enter until pt leaves facility: 06/20/18 12:51
== END 2018-06-20 12:51 | disposition home health service (06) | DRG 314 ==
LOC: 2S 15:54
PROC: CLS.TEE (2018-06-17 09:00)

== ENCOUNTER 2019-07-11 14:44 | Inpatient (IN) ==
[2019-07-11 15:24] LABS: Basophils # (auto) 0.01 K/uL (0-0.2); Basophils % (auto) 0.1 %; Eosinophils # (auto) 0.25 K/uL (0-0.5); Eosinophils % (auto) 2.7 %; Immature Granulocytes # (auto) 0.03 K/uL (0.00-0.02); Immature Granulocytes % (auto) 0.3 %; Lymphocytes # (auto) 0.72 K/uL (1.2-3.4); Lymphocytes % (auto) 7.6 %; Mean Corpuscular Hemoglobin 31.1 pg (25-34); Mean Corpuscular Hgb Conc 31.4 g/dL (32-36); Mean Corpuscular Volume 98.9 fL (80-100); Mean Platelet Volume 12.2 fL (7.4-10.4); Monocytes # (auto) 0.54 K/uL (0.11-0.59); Monocytes % (auto) 5.7 %; Neutrophils # (auto) 7.87 K/uL (1.4-6.5); Neutrophils % (auto) 83.6 %; Platelet Count 205 K/uL (130-400); RDW Standard Deviation 60.4 fL (36.4-46.3); Red Blood Count 3.54 M/uL (4.7-6.1); White Blood Count 9.42 K/uL (4.8-10.8)
[2019-07-11 15:38] LABS: INR 1.2 (0.9-1.1); Partial Thromboplastin Ratio 1.2; Partial Thromboplastin Time 31.9 Seconds (21.0-31.0); Prothrombin Time 12.4 Seconds (9.0-12.0)
[2019-07-11 15:39] LABS: Alanine Aminotransferase 27 U/L (12-78); Albumin Level 3.4 gm/dl (3.4-5.0); Aspartate Aminotransferase 29 U/L (15-37); BUN Creatinine Ratio 31.6 (10-20); Blood Urea Nitrogen 58 mg/dl (7-18); Calcium 9.7 mg/dl (8.5-10.1); Carbon Dioxide 23 mmol/L (21-32); Chloride 109 mmol/L (98-107); Creatinine Clr Calc Pharmacy 38.9 ml/min; Est GFR (African American) 41.8; Est GFR (Non-African American) 36.1; Glucose 139 mg/dl (70-99); Potassium 4.3 mmol/L (3.5-5.1); Sodium 142 mmol/L (136-145)
--- NOTE | 2019-07-11 15:42 | XRay Report ---
XR chest 1V portable HISTORY: 73 years-old Male Dyspnea acute shortness of breath with cough COMPARISON: Chest radiograph 07/13/2018 TECHNIQUE: Portable AP view of the chest FINDINGS: Cardiac silhouette is enlarged, unchanged. Prior median sternotomy. Unchanged widening of the mediast inum. Layering bilateral pleural effusions are noted along with right greater left bibasilar consolid ation. Pulmonary congestion with interstitial coarsening. No pneumothorax. Degenerative changes of th e shoulders and spine. IMPRESSION: 1. Cardiomegaly with pulmonary edema. 2. Bilateral pleural effusions with bibasilar consolidation suggestive of atelectasis versus pneumoni a. ACT 112: Negative or not required by law. The above report was generated using voice recognition software. It may contain grammatical, syntax o r spelling errors. Electronically signed by: Jean Claude Ramirez M.D. 07/11/2019 3:41 PM
[2019-07-11 15:44] LABS: Albumin Globulin Ratio 0.9 (0.9-2); Alkaline Phosphatase 147 U/L (45-117); Bilirubin,Total 1.3 mg/dl (0.2-1); Globulin 3.6 gm/dl (2.5-4.0); NT Pro B Type Natriuretic Pept 6960 pg/ml (0-900); Troponin I < 0.015 ng/ml (0-0.045)
[2019-07-11] MEDS ORDERED: FUROSEMIDE 40 MG/4 ML VIAL IV STA (15:52)
--- NOTE | 2019-07-11 16:36 | Emergency Department Note ---
Entered by Brantd Fisher acting as a scribe for History of Present Illness General Chief complaint: Shortness of Breath/Dyspnea Stated complaint: SOB Source: patient Limitations: no limitations History of Present Illness Onset (ago): day(s) 3 Location: chest Pain Consistency: + constant Quality: + constant Exacerbated By: + movement Associated symptoms: no fever/chills (fevers) The patient is a 73 year old male who presents to the Emergency Room with complaints of constant SOB starting 3 days ago. The patient states he has a history of pleural effusion. He states he had his pleural effusion drained 3 d ays ago. He states previously his symptoms improved after getting his pleural effusions drained. He states he constantly has labored breathing. He notes his SOB is worse with exertion. The patient denies having fevers. He states he is exhausted with and without oxygen. Denies CP, fever, shortness of breath. Home Medications Home Medications Medication Instructions Recorded Confirmed Type allopurinol 300 mg PO QPM 04/13/18 07/11/19 History aspirin [Aspir-81] 81 mg PO QPM 04/13/18 07/11/19 History atorvastatin 20 mg PO QPM 04/13/18 07/11/19 History metformin 1,000 mg PO QPM 04/13/18 07/11/19 History metoprolol succinate 12.5 mg PO QPM 04/13/18 07/11/19 History finasteride 5 mg PO QPM 06/15/18 07/11/19 History fluoxetine 40 mg PO QPM 07/11/19 07/11/19 History furosemide 40 mg PO QAM 07/11/19 07/11/19 History indomethacin 75 mg PO QPM PRN 07/11/19 07/11/19 History Allergies Allergy/AdvReac Type Severity Reaction Status Date / Time chlorhexidine Allergy Mild Rash Verified 07/11/19 15:50 naproxen Allergy Mild RASH Verified 07/11/19 15:50 Penicillins Allergy Unknown unknown Verified 07/11/19 15:50 sulfamethoxazole Allergy Unknown Unknown Verified 07/11/19 15:50 Past Med/Surg History Medical History Acute hypoxemic respiratory failure Aortic stenosis, moderate (Chronic) "s/p aortic valve replacement with prosthetic valve 04/2015" Asthma as a child Bacteremia (Acute) Strep viridans May-Jun 2018 BPH (benign prostatic hyperplasia) (Chronic) Bruxism, sleep-related (Chronic) CAD (coronary artery disease) (Chronic) "s/p CABG x 1 " Chronic rhinitis (Chronic) CKD (chronic kidney disease) stage 3, GFR 30-59 ml/min (Chronic) Diabetes type 2, controlled (Chronic) NIDDM Dyslipidemia (Chronic) Hearing deficit History of endocarditis History of transesophageal echocardiography (LAKSHMI) Meniere's disease (Chronic) Mild sleep apnea no device Osteoarthritis Osteomyelitis of lumbar spine (Acute) Jun 2018 + discitis. Associated with Strep viridans bacteremia Patient is Mormon (Chronic) Surgical History History of aortic valve replacement (Resolved) "[facility] 04/2015 " History of cardiac cath 2014 - [facility] --> VALVE REPLACEMENT, CABG History of colonoscopy History of coronary artery bypass graft x 1 (Resolved) "04/14/[address] Justino Colunga" On 07/07/15 18:18 Diamond Reed wrote "04/14/2015" History of left inguinal hernia repair (Resolved) "[facility] Dr. Okee[place] 1986" History of right inguinal hernia repair (Resolved) "1992; R inguinal hernia repair with repair of recurrent L inguinal hernia" Family History Mother , 94 FH: diabetes mellitus Ovarian cancer Father , age 73 FHx: emphysema Grandfather (Maternal) , age 47 Myocardial infarction Social History Preferred Language: Slovak Communication Ability: Effective Eyelet Maker Required: No Beliefs That Will Affect Care: Mormon Mormon Beliefs: pentecostal marital status: Current Living Situation: Spouse Current Living Situation Comment: diya current occupational status: retired Other Information That Helps Us Care for You: No Feels Safe at Home: Yes Safety Concerns: Feels Safe At This Time Smoking Status: Never smoker Second Hand Exposure: No ; Hx Alcohol Use: No Hx Substance Use: No Review of Systems See HPI for pertinent positives & negatives. and A total of 10 systems reviewed and were otherwise negative Physical Exam Vital Signs Vital Signs - 24 hr 07/11/19 14:46 07/11/19 14:59 07/11/19 15:58 Temperature 36.3 C L Temperature Source Oral Pulse Rate 81 93 H Pulse Rate [Left] 67 Respiratory Rate 28 H 26 H Respiratory Effort / Characteristics Spontaneous Labored Short of Breath SOB on Exertion Spontaneous Spontaneous Respiratory Pattern Regular Blood Pressure 158/63 H Blood Pressure [Left Arm] 133/55 L Blood Pressure Mean 94 Blood Pressure Mean [Left Arm] 81 Blood Pressure Position [Left Arm] Lying Pulse Oximetry 76 L 96 95 Oxygen Delivery Method Room Air Nasal Cannula Nasal Cannula Oxygen Flow Rate 3 3 Sepsis Recent Fever Within 48 Hours No Sepsis Action Taken by Nursing No Action Required Vital signs reviewed. General: Well-appearing elderly male, in no significant distress. On nasal cannula oxygen. HEENT: No scleral icterus, PERRLA, neck supple. Atraumatic. Cardiovascular: Regular rate and rhythm. Systolic ejection murmur. Pulmonary: Normal work of breathing. Coarse breath sounds bilaterally, diminished on the left. Abdomen: Soft, nontender, nondistended, positive bowel sounds. Musculoskeletal: Atraumatic, no peripheral edema. Neurologic: Patient awake alert and oriented x 3. Skin: Warm, dry, no rash Course Course 1514: The patient was evaluated in room C5, and a complete history and physical examination were performed. 1607: I discussed the patient's case with Tayler Garner PA-C. Dr. Sharee Garner Hospitalist will evaluate the patient for further management. 1621: I reevaluated the patient. I updated him on his labs and imaging and nahum mmended admission. He agrees with the plan. Administered Medications Allopurinol (Zyloprim) 300 mg PO QPM [facility] Stop: 08/10/19 20:59 Last Admin: 07/13/19 20:56 Dose: 300 mg Documented by: [id number] Admin: 07/12/19 20:39 Dose: 300 mg Documented by: [id number] Admin: 07/11/19 21:08 Dose: 300 mg Documented by: [id number] Aspirin (Ecotrin Ectab) 81 mg PO QPM [facility] Stop: 08/10/19 20:59 Last Admin: 07/13/19 20:56 Dose: 81 mg Documented by: [id number] Admin: 07/12/19 20:36 Dose: 81 mg Documented by: [id number] Admin: 07/11/19 21:09 Dose: 81 mg Documented by: [id number] Atorvastatin Calcium (Lipitor) 20 mg PO QPM [facility] Stop: 08/10/19 20:59 Last Admin: 07/13/19 20:56 Dose: 20 mg Documented by: [id number] Admin: 07/12/19 20:38 Dose: 20 mg Documented by: [id number] Admin: 07/11/19 21:09 Dose: 20 mg Documented by: [id number] Doxycycline Hyclate (Vibramycin) 100 mg PO BID [facility]; Protocol Stop: 07/18/19 20:24 Last Admin: 07/14/19 08:44 Dose: 100 mg Documented by: [id number] Admin: 07/13/19 20:57 Dose: 100 mg Documented by: [id number] Admin: 07/13/19 08:10 Dose: 100 mg Documented by: [id number] Admin: 07/12/19 20:39 Dose: 100 mg Documented by: [id number] Admin: 07/12/19 09:05 Dose: 100 mg Documented by: [id number] Admin: 07/11/19 21:08 Dose: 100 mg Documented by: [id number] Finasteride (Proscar) 5 mg PO QPM [facility] Stop: 08/10/19 20:59 Last Admin: 07/13/19 20:55 Dose: 5 mg Documented by: [id number] Admin: 07/12/19 20:38 Dose: 5 mg Documented by: [id number] Admin: 07/11/19 21:07 Dose: Not Given Documented by: [id number] Fluoxetine HCl (Prozac) 40 mg PO QPM [facility] Stop: 08/10/19 20:59 Last Admin: 07/13/19 20:56 Dose: 40 mg Documented by: [id number] Admin: 07/12/19 20:37 Dose: 40 mg Documented by: [id number] Admin: 07/11/19 21:10 Dose: 40 mg Documented by: [id number] Heparin Sodium (Porcine) (Heparin Sodium (Porcine)) 5,000 units SQ Q8 [facility] Stop: 08/10/19 21:59 Last Admin: 07/14/19 14:39 Dose: Not Given Documented by: [id number] Admin: 07/14/19 06:46 Dose: 5,000 units Documented by: [id number] Cosigned by: [id number] Admin: 07/13/19 20:58 Dose: 5,000 units Documented by: [id number] Cosigned by: [id number] Admin: 07/13/19 13:25 Dose: 5,000 units Documented by: [id number] Cosigned by: [id number] Admin: 07/13/19 06:23 Dose: Not Given Documented by: [id number] Admin: 07/12/19 20:33 Dose: Not Given Documented by: [id number] Admin: 07/12/19 13:34 Dose: 5,000 units Documented by: [id number] Cosigned by: [id number] Admin: 07/12/19 07:00 Dose: Not Given Documented by: [id number] Admin: 07/11/19 21:09 Dose: 5,000 units Documented by: [id number] Cosigned by: [id number] Ceftriaxone Sodium 2,000 mg/ (Dextrose) 70 mls @ 100 mls/hr IV DAILY@2100 [facility]; Protocol Stop: 07/18/19 20:59 Last Infusion: 07/13/19 21:35 Dose: 0 mls/hr Documented by: [id number] Admin: 07/13/19 20:50 Dose: 100 mls/hr Documented by: [id number] Infusion: 07/12/19 21:31 Dose: 0 mls/hr Documented by: [id number] Admin: 07/12/19 20:40 Dose: 100 mls/hr Documented by: [id number] Infusion: 07/11/19 22:00 Dose: 0 mls/hr Documented by: [id number] Admin: 07/11/19 21:17 Dose: 100 mls/hr Documented by: [id number] Furosemide 60 mg/ Syringe 6 mls @ 4 mls/min IV TID [facility] Stop: 07/14/19 23:55 Last Admin: 07/14/19 14:39 Dose: 4 mls/min Documented by: [id number] Admin: 07/14/19 08:44 Dose: 4 mls/min Documented by: [id number] Admin: 07/13/19 20:55 Dose: 4 mls/min Documented by: [id number] Admin: 07/13/19 13:54 Dose: 4 mls/min Documented by: [id number] Insulin Aspart (Novolog Flexpen) 0 units SC ACHS [facility] Stop: 08/10/19 20:59 Last Admin: 07/14/19 11:53 Dose: 2 units Documented by: [id number] Cosigned by: [id number] Admin: 07/14/19 08:45 Dose: 2 units Documented by: [id number] Cosigned by: [id number] Admin: 07/13/19 20:51 Dose: Not Given Documented by: [id number] Cosigned by: [id number] Admin: 07/13/19 16:59 Dose: 2 units Documented by: [id number] Cosigned by: [id number] Admin: 07/13/19 12:11 Dose: 4 units Documented by: [id number] Cosigned by: [id number] Admin: 07/13/19 08:10 Dose: 1 units Documented by: [id number] Cosigned by: [id number] Admin: 07/12/19 20:32 Dose: Not Given Documented by: [id number] Cosigned by: [id number] Admin: 07/12/19 17:46 Dose: Not Given Documented by: [id number] Cosigned by: [id number] Admin: 07/12/19 12:08 Dose: 1 units Documented by: [id number] Cosigned by: [id number] Admin: 07/12/19 09:05 Dose: 1 units Documented by: [id number] Cosigned by: [id number] Admin: 07/11/19 21:10 Dose: Not Given Documented by: [id number] Cosigned by: [id number] Metoprolol Succinate (Toprol Xl) 12.5 mg PO QPM [facility] Stop: 08/10/19 20:59 Last Admin: 07/13/19 20:56 Dose: 12.5 mg Documented by: [id number] Admin: 07/12/19 20:38 Dose: 12.5 mg Documented by: [id number] Admin: 07/11/19 21:10 Dose: 12.5 mg Documented by: [id number] Potassium Chloride (Klor-Con M20) 40 meq PO BID [facility] Stop: 08/13/19 13:44 Last Admin: 07/14/19 14:39 Dose: 40 meq Documented by: [id number] Spironolactone (Aldactone) 12.5 mg PO DAILY [facility] Stop: 08/11/19 12:44 Last Admin: 07/14/19 08:45 Dose: 12.5 mg Documented by: [id number] Admin: 07/13/19 08:09 Dose: 12.5 mg Documented by: [id number] Admin: 07/12/19 13:34 Dose: 12.5 mg Documented by: [id number] Discontinued Medications Furosemide (Lasix) 40 mg IV NOW STA Stop: 07/11/19 15:53 Last Admin: 07/11/19 16:10 Dose: 40 mg Documented by: [id number] Furosemide 60 mg/ Syringe 6 mls @ 4 mls/min IV BID17 [facility] Stop: 08/11/19 12:44 Last Admin: 07/13/19 08:09 Dose: 4 mls/min Documented by: [id number] Admin: 07/12/19 17:00 Dose: 4 mls/min Documented by: [id number] Admin: 07/12/19 13:34 Dose: 4 mls/min Documented by: [id number] Potassium Chloride (Klor-Con M20) 20 meq PO NOW ONE Stop: 07/13/19 14:01 Last Admin: 07/13/19 13:26 Dose: 20 meq Documented by: [id number] Medical Decision Making Differential Diagnosis Differential diagnoses includes but is not limited to pneumonia, bronchitis, COPD/Asthma exacerbation, pneumothorax, pulmonary embolism, congestive heart failure, acute coronary syndrome Medical Records Attestation: I reviewed the patient's medical records. Home Medications Current Medication List: was personally reviewed by me Laboratory Data Attestation: I reviewed the patient's lab results. Result diagrams: 07/14/19 05:35 07/14/19 05:35 Lab Results 07/11/19 07/11/19 07/11/19 Range/Units 15:00 15:00 15:00 WBC 9.42 (4.8-10.8) K/uL RBC 3.54 L (4.7-6.1) M/uL Hgb 11.0 L (14.0-18.0) g/dL Hct 35.0 L (42-52) % MCV 98.9 (80-100) fL MCH 31.1 (25-34) pg MCHC 31.4 L (32-36) g/dL RDW Std Deviation 60.4 H (36.4-46.3) fL RDW Coeff of Tin 17.0 H (11.5-14.5) % Plt Count 205 (130-400) K/uL MPV 12.2 H (7.4-10.4) fL Immature Gran % (Auto) 0.3 % Neut % (Auto) 83.6 % Lymph % (Auto) 7.6 % Twiggs % (Auto) 5.7 % Eos % (Auto) 2.7 % Baso % (Auto) 0.1 % Immature Gran # (Auto) 0.03 H (0.00-0.02) K/uL Neut # (Auto) 7.87 H (1.4-6.5) K/uL Lymph # (Auto) 0.72 L (1.2-3.4) K/uL Twiggs # (Auto) 0.54 (0.11-0.59) K/uL Eos # (Auto) 0.25 (0-0.5) K/uL Baso # (Auto) 0.01 (0-0.2) K/uL PT 12.4 H (9.0-12.0) Seconds INR 1.2 H (0.9-1.1) APTT 31.9 H (21.0-31.0) Seconds PTT Ratio 1.2 Sodium 142 (136-145) mmol/L Potassium 4.3 (3.5-5.1) mmol/L Chloride 109 H (98-107) mmol/L Carbon Dioxide 23 (21-32) mmol/L Anion Gap 10.0 (3-11) BUN 58 H (7-18) mg/dl Creatinine 1.84 H (0.6-1.4) mg/dl Est Cr Clr Drug Dosing 38.9 ml/min Est GFR ( Amer) 41.8 Est GFR (Non-Af Amer) 36.1 BUN/Creatinine Ratio 31.6 H (10-20) Glucose 139 H (70-99) mg/dl Calcium 9.7 (8.5-10.1) mg/dl Magnesium 2.0 (1.8-2.4) mg/dl Total Bilirubin 1.3 H (0.2-1) mg/dl AST 29 (15-37) U/L ALT 27 (12-78) U/L Alkaline Phosphatase 147 H (45-117) U/L Troponin I < 0.015 (0-0.045) ng/ml NT-Pro-B Natriuret Pep 6960 H (0-900) pg/ml Total Protein 7.0 (6.4-8.2) gm/dl Albumin 3.4 (3.4-5.0) gm/dl Globulin 3.6 (2.5-4.0) gm/dl Albumin/Globulin Ratio 0.9 (0.9-2) Urine Color Urine Appearance (Clear) Urine pH (4.5-7.5) Ur Specific Luther (1.000-1.030) Urine Protein (Negative) Urine Glucose (UA) (Negative) Urine Ketones (Negative) Urine Blood (Negative) Urine Nitrite (Negative) Urine Bilirubin (Negative) Urine Urobilinogen (Negative) Ur Leukocyte Esterase (Negative) 07/11/19 Range/Units 17:00 WBC (4.8-10.8) K/uL RBC (4.7-6.1) M/uL Hgb (14.0-18.0) g/dL Hct (42-52) % MCV (80-100) fL MCH (25-34) pg MCHC (32-36) g/dL RDW Std Deviation (36.4-46.3) fL RDW Coeff of Tin (11.5-14.5) % Plt Count (130-400) K/uL MPV (7.4-10.4) fL Immature Gran % (Auto) % Neut % (Auto) % Lymph % (Auto) % Twiggs % (Auto) % Eos % (Auto) % Baso % (Auto) % Immature Gran # (Auto) (0.00-0.02) K/uL Neut # (Auto) (1.4-6.5) K/uL Lymph # (Auto) (1.2-3.4) K/uL Twiggs # (Auto) (0.11-0.59) K/uL Eos # (Auto) (0-0.5) K/uL Baso # (Auto) (0-0.2) K/uL PT (9.0-12.0) Seconds INR (0.9-1.1) APTT (21.0-31.0) Seconds PTT Ratio Sodium (136-145) mmol/L Potassium (3.5-5.1) mmol/L Chloride (98-107) mmol/L Carbon Dioxide (21-32) mmol/L Anion Gap (3-11) BUN (7-18) mg/dl Creatinine (0.6-1.4) mg/dl Est Cr Clr Drug Dosing ml/min Est GFR ( Amer) Est GFR (Non-Af Amer) BUN/Creatinine Ratio (10-20) Glucose (70-99) mg/dl Calcium (8.5-10.1) mg/dl Magnesium (1.8-2.4) mg/dl Total Bilirubin (0.2-1) mg/dl AST (15-37) U/L ALT (12-78) U/L Alkaline Phosphatase (45-117) U/L Troponin I (0-0.045) ng/ml NT-Pro-B Natriuret Pep (0-900) pg/ml Total Protein (6.4-8.2) gm/dl Albumin (3.4-5.0) gm/dl Globulin (2.5-4.0) gm/dl Albumin/Globulin Ratio (0.9-2) Urine Color Yellow Urine Appearance Clear (Clear) Urine pH 6.5 (4.5-7.5) Ur Specific Luther 1.011 (1.000-1.030) Urine Protein Negative (Negative) Urine Glucose (UA) Negative (Negative) Urine Ketones Negative (Negative) Urine Blood Negative (Negative) Urine Nitrite Negative (Negative) Urine Bilirubin Negative (Negative) Urine Urobilinogen Negative (Negative) Ur Leukocyte Esterase Negative (Negative) Imaging Data Radiologist's Impression: Radiology results as stated below per my review and the radiologist's interpretation: XR chest 1V portable HISTORY: 73 years-old Male Dyspnea acute shortness of breath with cough COMPARISON: Chest radiograph 07/13/2018 TECHNIQUE: Portable AP view of the chest FINDINGS: Cardiac silhouette is enlarged, unchanged. Prior median sternotomy. Unchanged widening of the mediastinum. Layering bilateral pleural effusions are noted along with right greater left bibasilar consolidation. Pulmonary congestion with interstitial coarsening. No pneumothorax. Degenerative changes of the shoulders and spine. IMPRESSION: 1. Cardiomegaly with pulmonary edema. 2. Bilateral pleural effusions with bibasilar consolidation suggestive of atelectasis versus pneumonia. ACT 112: Negative or not required by law. The above report was generated using voice recognition software. It may contain grammatical, syntax or spelling errors. Electronically signed by: Jean Claude Ramirez M.D. 07/11/2019 3:41 PM ECG Data Attestation: I personally reviewed and interpreted this ECG as follows: Indication: + SOB/dyspnea Rate (beats per minute): 66 Rhythm: + sinus with SA ECG Intervals/blocks: + Normal QT-c ECG Findings: + Other (Non specific T wave abnormality in lateral leads); no PACs and no PVCs Blood Pressure Blood Pressure Findings: Elevated blood pressure Blood Pressure Disposition: further management by hospitalist KULDIP Waite Continuous Cardiac Monitoring: An order was placed for continuous cardiac monitoring. The monitor shows a rate of 69 with a sinus rhythm This patient was evaluated and appeared to be in no significant distress. He was resting speaking with his family at the bedside. Patient does have nasal cannula oxygen in place. He was noted to be markedly hypoxic on room air on arrival. Patient had a right-sided pleural effusion drained at an outside facility within the last several days. Chest x-ray was performed today and reveals bilateral pleural effusions with bibasilar consolidation. Patient was given 40 mg of IV Lasix. Patient is EKG reveals a sinus rhythm with sinus arrhy thmia, no evidence of acute ischemic change. Given the patient's hypoxia and acutely decompensated congestive heart failure, he will be evaluated by the hospitalist service for admission and further management. Impression & Plan CHF (congestive heart failure), Hypoxia Discharge Plan Visit Data *Final* Discharge Date/Time: 07/11/19 17:51 Chief Complaint: Shortness of Breath/Dyspnea Stated Complaint: SOB ED Provider: Amaya Bowers Discharge Problem: CHF (congestive heart failure), Hypoxia Patient Disposition: Admitted As Inpatient Discharge Instructions Interventions: ED Discharge Assessment Last Done: 07/11/19 17:51 Discharge Problem: CHF (congestive heart failure) Qualifiers: Heart failure type: unspecified Heart failure chronicity: unspecified Qualified Code(s): I50.9 - Heart failure, unspecified The scribe's documentation has been prepared under my direction and personally reviewed by me in its entirety. I confirm that the note above accurately reflects all work, treatment, procedures, and medical decision making performed by me.
[2019-07-11 17:49] LABS: Appearance Urine Clear (Clear); Bilirubin Urine Negative (Negative); Blood Urine Negative (Negative); Color Urine Yellow; Glucose Urine UA Negative (Negative); Ketones Urine Negative (Negative); Leukocyte Esterase Urine Negative (Negative); Nitrite Urine Negative (Negative); Protein Urine Negative (Negative); Specific Gravity Urine 1.011 (1.000-1.030); Urobilinogen Urine Negative (Negative); pH Urine 6.5 (4.5-7.5)
[2019-07-11] MEDS ORDERED: ACETAMINOPHEN 325 MG TAB PO PRN (18:17)
[2019-07-11] MEDS ORDERED: NITROGLYCERIN SL 0.4 MG/TAB TAB SL PRN (18:17)
[2019-07-11] MEDS ORDERED: LEVALBUTEROL HCL 1.25 MG/3 ML NEB NEB PRN (18:17)
[2019-07-11] MEDS ORDERED: ONDANSETRON INJ 2 MG/ML 2 ML VIAL IV PRN (18:17)
--- NOTE | 2019-07-11 18:40 | Electrocardiogram Report ---
Test Reason : Blood Pressure : / mmHG Vent. Rate : 066 BPM Atrial Rate : 066 BPM P-R Int : 142 ms QRS Dur : 098 ms QT Int : 400 ms P-R-T Axes : 020 -05 -22 degrees QTc Int : 419 ms Sinus rhythm with PACs Possible Left atrial enlargement Nonspecific ST abnormality Abnormal ECG When compared with ECG of 17-JUN-2018 06:31, Nonspecific T wave abnormality now evident in Lateral leads Confirmed by Tony Hernandez ([id number]) on 07/11/2019 6:39:33 PM Referred By: Confirmed By:Tj Hernandez
[2019-07-11] MEDS ORDERED: GLUCOSE 40% GEL 15 GM TUBE PO PRN (19:00)
[2019-07-11] MEDS ORDERED: GLUCAGON FOR INJ 1 MG VIAL IM PRN (19:00)
[2019-07-11] MEDS ORDERED: GLUCOSE 10 TABS/TUBE PO PRN (19:00)
[2019-07-11] MEDS ORDERED: DEXTROSE 50% 50 ML SYRINGE IV PRN (19:00)
[2019-07-11] MEDS ORDERED: CARBOHYDRATES FOR HYPOGLYCEMIA PO PRN (19:00)
--- NOTE | 2019-07-11 20:02 | CT Scan Report ---
CT chest wo con CT DOSE: 552.99 mGy.cm HISTORY: Shortness of breath. chf/infiltrates TECHNIQUE: Multiaxial CT images of the chest were performed without contrast. A dose lowering techni que was utilized adhering to the principles of ALARA. COMPARISON: Chest 07/11/2019. FINDINGS: No pneumothorax. The central airways are patent. Scattered punctate calcified granulomas. D iffuse interlobular septal thickening with scattered groundglass densities. This favors mild intersti tial pulmonary edema. Peripheral consolidation within the lung bases appears to represent a combinati on of round and subsegmental atelectasis. A pneumonia could also have a similar appearance but is con sidered less likely. Small bilateral pleural effusions, right greater than left. Mild bibasilar pleur al thickening. This suggests chronic pleural effusions. Borderline mediastinal lymphadenopathy. This could be reactive to the chronic congestive heart failure. The heart remains mildly enlarged. Normal caliber esophagus. Aneurysmal dilatation of the ascending thoracic aorta measuring up to 4.6 cm in di ameter. Limited views of the upper abdomen demonstrate normal liver and spleen. The adrenal glands ar e unremarkable. No suspicious lytic or blastic osseous lesions. There are poststernotomy changes. IMPRESSION: 1. Diffuse interlobular septal thickening with scattered groundglass densities. This favors mild inte rstitial pulmonary edema. 2. Peripheral consolidation within the lung bases appears to represent a combination of round and sub segmental atelectasis. A pneumonia could also have a similar appearance but is considered less likely . 3. Small bilateral pleural effusions, right greater than left. 4. Mild bibasilar pleural thickening. This suggests chronic pleural effusions. Infectious process cou ld also have a similar appearance but is considered less likely. 5. Aneurysmal dilatation of the ascending thoracic aorta measuring up to 4.6 cm in diameter. ACT 112: Negative or not required by law. Electronically signed by: Nicholas Michele M.D. 07/11/2019 8:00 PM
--- NOTE | 2019-07-11 20:32 | History and Physical Report ---
DATE OF ADMISSION: 07/11/2019 CHIEF COMPLAINT: Shortness of breath. HISTORY OF PRESENT ILLNESS: This is a 73-year-old male with past medical history significant for congenital bicuspid aorta status post prosthetic aortic valve replacement, history of strep viridans bacteremia with diskitis of L2-L3 in June 2018, history of coronary artery disease status post coronary artery bypass graft, pleuropericarditis postoperatively, , hyperlipidemia, type 2 diabetes, gout, thrombocytopenia, chronic kidney disease stage III, sleep apnea on CPAP started couple of months ago. Presents with shortness of breath. The patient is having shortness of breath for the last few months, but the last couple of weeks it got really worse, and he was in [facility] on Sunday with right-sided thoracocentesis, but it didnot improved his shortness of breath. He says he could not walk because of shortness of breath. He has cough once in a while with whitish phlegm. Denies any chest pain. No nausea, no vomiting, no headache. He will get dizzy when he stands up. No blurred visions. Somewhat hard of hearing. No sore throat, no fever, no chills, no abdominal pain. Normal bowel and bladder movements. No swelling in the legs. Currently, requiring 3 liters of oxygen, uses oxygen at home all the time and is taking his Lasix regularly. ALLERGIES: CHLORHEXIDINE, NAPROSYN, PENICILLIN, SULFA ANTIBIOTICS. PAST MEDICAL HISTORY: As mentioned above. PAST SURGICAL HISTORY: CABG, EGDs, right inguinal hernia repair, left testicular benign tumor resection, heart catheterization, bioprosthetic aortic valve replacement, transesophageal echocardiogram, status post thoracocentesis, left inguinal hernia repair. MEDICATIONS: The patient is on fluoxetine 40 mg p.o. daily, Lipitor 20 mg p.o. daily, metformin 1000 mg p.o. in the evening, allopurinol 300 mg p.o. daily, clindamycin 10 mg 2 hours prior to dental work, Lasix 40 mg p.o. daily, oxygen 2 liters, Proscar 5 mg p.o. daily, indomethacin ER 75 mg p.o. daily p.r.n., Toprol-XL 12.5 mg p.o. daily, aspirin 81 mg p.o. daily. FAMILY HISTORY: Significant for mother had ovarian cancer, diabetes, and bipolar; father had emphysema; sister has diabetes. SOCIAL HISTORY: . No smoking, alcohol rare. No drug use. REVIEW OF SYSTEMS: As per HPI. Rest of review of systems negative. PHYSICAL EXAMINATION: GENERAL: The patient is of moderate build, not in acute distress currently. VITAL SIGNS: Temperature 36.3, pulse 70, respiratory rate 20, blood pressure 170/61, oxygen 98% on 3 liters nasal cannula. HEENT: No pallor, no icterus. Pupils equal, round, reactive to light. NECK: No JVD, no neck masses, no carotid bruits. CARDIOVASCULAR: S1, S2 heard, regular rate and rhythm, no murmur, no gallop. RESPIRATORY SYSTEM: Normal AP diameter. No accessory muscle use. Mild bibasilar crackles. No wheezing. ABDOMEN: Soft, bowel sounds present, nontender. No distention. CENTRAL NERVOUS SYSTEM: Cranial nerves II-XII grossly intact, nonfocal. EXTREMITIES: No edema, no erythema. LABORATORY DATA: WBC 9.4, hemoglobin 11, hematocrit 35, platelets 205. PT 12.4, INR 1.2, APTT 31.9. Sodium 142, potassium 4.3, chloride 109, bicarbonate 23, BUN 58, creatinine 1.8, serum glucose 139, calcium 9.7, magnesium 2, total bilirubin 1.6, AST 29, ALT 27, alkaline phosphatase 147. Troponin I less than 0.015. BNP 6960. IMAGING DATA: Chest x-ray shows cardiomegaly with pulmonary edema, bilateral pleural effusions and bibasilar consolidation suggestive of atelectasis versus pneumonia. Echocardiogram, sinus rhythm with marked sinus arrhythmia at a rate of 66. Nonspecific ST wave abnormality. ASSESSMENT AND PLAN: This is a 73-year-old male who presents with shortness of breath. 1. Shortness of breath most likely secondary to acute diastolic congestive heart failure, pleural effusions, possible infiltrates. Got IV Lasix 40 mg in the ER. We will follow the response. We will hold on further diuretics until seen by cardiology in the a.m. Monitor in tele floor. We will follow echocardiogram, and also check a CT of the chest to rule out any infiltrates and also chest ultrasound for pleural effusions. If significant pleural effusion, we will consult pulmonary for thoracocentesis. Recently had thoracocentesis done on the right side on Sunday at [facility]. 2. Sleep apnea. Continue CPAP at bedtime. 3. Diabetes. Hold metformin. Placed on insulin sliding scale. Follow HbA1c levels. Follow blood sugars. 4. History of coronary artery disease status post coronary artery bypass graft. Continue his aspirin, statin, and Toprol-XL. Currently seems to be stable. 5. Acute kidney injury on chronic kidney disease stage III. Baseline creatinine around 1 to 1.2, currently creatinine of 1.8. Got IV Lasix in the ER. We will follow the labs in the a.m. 6. History of osteomyelitis and diskitis with strep viridans bacteremia in June 2018. If any concerns, we will do the blood cultures. 7. Gout, continue his allopurinol. 8. Chronic respiratory failure secondary to congestive heart failure, on oxygen at home. 9. Deep venous thrombosis prophylaxis, heparin subQ. DISPOSITION: Closely monitor in the tele floor. Level [address] chest. Possible pneumonia though less likely. empirically started on iv Rocephin and po doxycycline. Will get cultures. MTDD
[2019-07-11] MEDS: FINASTERIDE 5 MG TAB PO SCH (21:07)
[2019-07-11] MEDS: allopurinoL 300 MG TAB PO SCH (21:08)
[2019-07-11] MEDS: DOXYCYCLINE HYCLATE 100 MG CAP PO SCH (21:08)
[2019-07-11] MEDS: ATORVASTATIN 20 MG TAB PO SCH (21:09)
[2019-07-11] MEDS: HEPARIN SOD 5,000 UNIT/0.5 ML VIAL SQ SCH (21:09)
[2019-07-11] MEDS: ASPIRIN 81 MG ECTAB PO SCH (21:09)
[2019-07-11] MEDS: INSULIN ASPART 100 UNITS/ML 3 ML PEN SC SCH (21:10)
[2019-07-11] MEDS: FLUOXETINE HCL 20 MG CAP PO SCH (21:10)
[2019-07-11] MEDS: METOPROLOL SUCC 25MG EXT REL TAB PO SCH (21:10)
[2019-07-11] MEDS: cefTRIAXone SODIUM 2,000 MG in DEXTROSE 5% 50 ML IV SCH (21:17)
[2019-07-12] MEDS: HEPARIN SOD 5,000 UNIT/0.5 ML VIAL SQ SCH ×3 (07:00→20:33)
[2019-07-12 07:10] LABS: Basophils # (auto) 0.02 K/uL (0-0.2); Basophils % (auto) 0.2 %; Eosinophils # (auto) 0.37 K/uL (0-0.5); Eosinophils % (auto) 3.8 %; Hematocrit (blood only) 31.8 % (42-52); Hemoglobin 10.1 g/dL (14.0-18.0); Immature Granulocytes # (auto) 0.02 K/uL (0.00-0.02); Immature Granulocytes % (auto) 0.2 %; Lymphocytes # (auto) 0.58 K/uL (1.2-3.4); Mean Corpuscular Hemoglobin 31.6 pg (25-34); Mean Corpuscular Hgb Conc 31.8 g/dL (32-36); Mean Corpuscular Volume 99.4 fL (80-100); Mean Platelet Volume 12.5 fL (7.4-10.4); Monocytes # (auto) 0.72 K/uL (0.11-0.59); Monocytes % (auto) 7.4 %; Neutrophils # (auto) 8.01 K/uL (1.4-6.5); Neutrophils % (auto) 82.4 %; Platelet Count 198 K/uL (130-400); RDW Standard Deviation 60.6 fL (36.4-46.3); White Blood Count 9.72 K/uL (4.8-10.8)
--- NOTE | 2019-07-12 07:32 | Hospitalist Progress Note ---
Date of Service July 12, 2019 Assessment & Plan (1) CHF (congestive heart failure): ASSESSMENT AND PLAN: This is a 73-year-old male who presents with shortness of breath. 1. Shortness of breath most likely secondary to acute diastolic congestive heart failure, pleural effusions, possible infiltrates. Got IV Lasix 40 mg in the ER. We will follow the response. We will hold on further diuretics until seen by cardiology in the a.m. Monitor in tele floor. We will follow echocardi ogram, and also check a CT of the chest to rule out any infiltrates and also chest ultrasound for pleural effusions. If significant pleural effusion, we will consult pulmonary for thoracocentesis. Recently had thoracocentesis done on the right side on Sunday at [facility]. 2. Sleep apnea. Continue CPAP at bedtime. 3. Diabetes. Hold metformin. Placed on insulin sliding scale. Follow HbA1c levels. Follow blood sugars. 4. History of coronary artery disease status post coronary artery bypass graft. Continue his aspirin, statin, and Toprol-XL. Currently seems to be stable. 5. Acute kidney injury on chronic kidney disease stage III. Baseline creatinine around 1 to 1.2, currently creatinine of 1.8. Got IV Lasix in the ER. We will follow the labs in the a.m. 6. History of osteomyelitis and diskitis with strep viridans bacteremia in June 2018. If any concerns, we will do the blood cultures. 7. Gout, continue his allopurinol. 8. Chronic respiratory failure secondary to congestive heart failure, on oxygen at home. 9. Deep venous thrombosis prophylaxis, heparin subQ. Labs checked Feeling Better DC when cleared by Cardio ROS-No Headache, No Visual Changes, No Nausea, No Vomiting, No Fever, No Chills, No Neck Pain or Stiffness, No Chest Pain, No Palpitations, No SOB, No LENTZ, No Cough, No Sputum, No Wheezing, No Abdominal Pain, No Diarrhea, No Hematemesis, No Hemoptysis, No Unexpected Weight Loss, No Flank pain, No Melena, No Hematochezia, No Frequency, No Urgency, No Burning, No Hematuria, No Rashes, No Diaphoresis. Appetite is Normal Physical Exam Gen-AAO x 3, NAD, Afebrile Head-NCAT, EOMI, PERRLA, Anicteric Sclera, No Posterior Pharyngeal Erythema Neck-Supple, No JVD, No Thyromegaly, No Masses, No LAD, No Bruits Lungs-Clear to Auscultation Bilaterally, No Rales, No Rhonchi, No Wheezing, No Crepitus Chest-No S4, +S1, +S2, No S3, No Murmurs, No Rubs, No Gallops, No Ectopy Abdomen-Soft, Bowel Sounds Present, Non Tender, Non Distended, No Hepatomegaly, No Splenomegaly, No Palpable Masses, No Rebound, No Rigidity, No Guarding Musculoskeletal-Full Range of Motion Bilaterally, No CVAT Extremities-No Cyanosis, No Clubbing, No Edema Nuero-Cranial Nerves II-XII grossly intact, Motor WNL, DTRs WNL, Strength WNL, Non Focal Psych-Normal Mood Admission and Anticipated Discharge Date Admission Date: July 11, 2019 Results & Data ([facility]) Vital Signs (Past 12 Hours) Vital Signs Temp Pulse Pulse Resp BP Pulse Ox 07/12/19 04:22 36.5 C 60 20 142/63 H 93 07/11/19 23:14 36.7 C 60 22 146/72 H 96 07/11/19 22:00 63 (1) CHF (congestive heart failure) Heart failure chronicity: unspecified Heart failure type: unspecified Qualified Code(s): I50.9 - Heart failure, unspecified
[2019-07-12 07:42] LABS: Estimated Average Glucose 111 mg/dl; Hemoglobin A1C 5.5 % (4.5-5.6)
[2019-07-12 08:16] LABS: BUN Creatinine Ratio 29.7 (10-20); Calcium 9.1 mg/dl (8.5-10.1); Creatinine Clr Calc Pharmacy 42.1 ml/min; Est GFR (African American) 46.3; Potassium 4.5 mmol/L (3.5-5.1)
[2019-07-12] MEDS: DOXYCYCLINE HYCLATE 100 MG CAP PO SCH ×2 (09:05→20:39)
[2019-07-12] MEDS: INSULIN ASPART 100 UNITS/ML 3 ML PEN SC SCH ×4 (09:05→20:32)
--- NOTE | 2019-07-12 12:46 | Cardiology Consultation ---
Date of Consultation July 12, 2019 Assessment & Plan (1) Acute diastolic (congestive) heart failure: Patient does examine somewhat volume overloaded, however, not enough to explain his significant shortness of breath. I will increase his diuretics to Lasix 60 mg twice daily IV and follow strict I's and O's. I will also start spironolactone 12.5 mg p.o. daily. Follow and replete electrolytes as necessary. (2) Chronic bilateral pleural effusions: Physical exam for significant for significant wheezing and rhonchi Again shortness of breath out of proportion to the degree of diastolic dysfunction and volume overload. Would recommend pulmonary evaluation (3) CKD (chronic kidney disease) stage 3, GFR 30-59 ml/min: Will follow closely (4) History of coronary artery bypass graft x 1: Stable (5) History of aortic valve replacement: Indices are elevated. May be contributing to acute decompensation. We will need to follow further as an outpatient. History of Present Illness Reason for Consultation: sob Requesting Physician: Dr. Tolliver Attending Physician: Sony Dyer, History of Present Illness It was my pleasure to see Mr. Ordoñez in consultation today July 12, 2019. He is a very pleasant 73-year-old gentleman who normally follows with Daniel Chun of our cardiology practice. He presented to the [facility] on 07/11/2019 with complaints of increasing shortness of breath. He states he is been short of breath for several weeks now and it steadily been progressing. He underwent an outpatient thoracentesis at [facility] on 07/08/2019 and he states that that did not help his breathing he states if anything his breathing felt worse after that. He does have a nonproductive cough with this but denies experiencing chest pain, palpitations, lightheadedness, dizziness or syncope. He has been following with pulmonology as an outpatient. He states he is been c ompliant with his medications at home and wearing his oxygen as well. Past medical history as per Daniel Chun's most recent outpatient visit note: 1. Congenitally bicuspid aortic valve. 2. Status post aortic valve replacement on April 14, 2015, receiving a 23 mm [place] Epic bioprosthesis 3. Small perivalvular aortic insufficiency jet. 4. Strep viridans bacteremia with diskitis /osteomyelitis of L2-3 June 15, 2018 5. Atherosclerotic coronary disease, receiving a BYERS graft to the LAD at the time of valve replacement. 6. Pleuropericarditis postoperatively. 7. Recurrent vagal response to thoracentesis. 8. Dyslipidemia 9. Type 2 diabetes mellitus 10. Gout 11. Thrombocytopenia 12. Chronic kidney disease. Allergies Allergy/AdvReac Type Severity Reaction Status Date / Time chlorhexidine Allergy Mild Rash Verified 07/11/19 15:50 naproxen Allergy Mild RASH Verified 07/11/19 15:50 Penicillins Allergy Unknown unknown Verified 07/11/19 15:50 sulfamethoxazole Allergy Unknown Unknown Verified 07/11/19 15:50 Home Medications Home Medications Medication Instructions Recorded Confirmed Type allopurinol 300 mg PO QPM 04/13/18 07/11/19 History aspirin [Aspir-81] 81 mg PO QPM 04/13/18 07/11/19 History atorvastatin 20 mg PO QPM 04/13/18 07/11/19 History metformin 1,000 mg PO QPM 04/13/18 07/11/19 History metoprolol succinate 12.5 mg PO QPM 04/13/18 07/11/19 History finasteride 5 mg PO QPM 06/15/18 07/11/19 History fluoxetine 40 mg PO QPM 07/11/19 07/11/19 History furosemide 40 mg PO QAM 07/11/19 07/11/19 History indomethacin 75 mg PO QPM PRN 07/11/19 07/11/19 History Patient History Medical History Aortic stenosis, moderate (Chronic) "s/p aortic valve replacement with prosthetic valve 04/2015" Asthma as a child Bacteremia (Acute) Strep viridans May-Jun 2018 BPH (benign prostatic hyperplasia) (Chronic) Bruxism, sleep-related (Chronic) CAD (coronary artery disease) (Chronic) "s/p CABG x 1 " Chronic rhinitis (Chronic) CKD (chronic kidney disease) stage 3, GFR 30-59 ml/min (Chronic) Diabetes type 2, controlled (Chronic) NIDDM Dyslipidemia (Chronic) Hearing deficit History of endocarditis History of transesophageal echocardiography (LAKSHMI) Meniere's disease (Chronic) Mild sleep apnea no device Osteoarthritis Osteomyelitis of lumbar spine (Acute) Jun 2018 + discitis. Associated with Strep viridans bacteremia Patient is Buddhist (Chronic) Surgical History History of aortic valve replacement (Resolved) "[place] [facility] 04/2015 " History of cardiac cath 2014 - [facility] --> VALVE REPLACEMENT, CABG History of colonoscopy History of coronary artery bypass graft x 1 (Resolved) "04/14/[address] Justino Colunga" On 07/07/15 18:18 Diamond Rede wrote "04/14/2015" History of left inguinal hernia repair (Resolved) "[facility] Dr. Okeefe 1986" History of right inguinal hernia repair (Resolved) "1992; R inguinal hernia repair with repair of recurrent L inguinal hernia" Family History Mother , 94 FH: diabetes mellitus Ovarian cancer Father , age 73 FHx: emphysema Grandfather (Maternal) , age 47 Myocardial infarction Social History Preferred Language: Sudanese Communication Ability: Effective Aviation Electrician Required: No Beliefs That Will Affect Care: Zoroastrianism Zoroastrianism Beliefs: orthodox marital status: Current Living Situation: Spouse Current Living Situation Comment: diya current occupational status: retired Other Information That Helps Us Care for You: No Feels Safe at Home: Yes Safety Concerns: Feels Safe At This Time Smoking Status: Never smoker Second Hand Exposure: No ; Hx Alcohol Use: No Hx Substance Use: No Review of Systems Review of Systems: All systems reviewed & are unremarkable except as noted in HPI & below Physical Exam Physical Exam: General: Awake, alert and oriented x 3. No acute distress. HEENT: Normocephalic, atraumatic. Pupils equal, round and reactive to light and accommodation. Extraocular muscles are intact. Anicteric sclera. Moist mucous membranes. Neck: No JVD. No bruit. Cardiovascular: Regular. Positive S-4. Normal S-1 and S-2. No S-3. 3/6 mid to late systolic ejection murmur, greatest at the right sternal border, second intercostal space with radiation to the bilateral carotids. No rubs. Pulmonary: Poor air movement bilaterally with scattered rhonchi and wheezing. Abdomen: Bowel sounds x 4, soft. No rebound, guarding or tenderness. No organomegaly. Extremities: No clubbing, cyanosis or edema. +2 pedal pulses bilaterally. Skin: Warm and dry. Results & Data ([facility]) Vital Signs (Past 12 Hours) Vital Signs Temp Pulse Resp BP Pulse Ox 07/12/19 11:10 36.5 C 71 22 157/74 H 93 07/12/19 07:05 36.4 C L 63 18 169/72 H 94 07/12/19 04:22 36.5 C 60 20 142/63 H 93 Laboratory Results Laboratory Results - last 24 hr 07/11/19 07/11/19 07/11/19 15:00 15:00 15:00 WBC 9.42 RBC 3.54 L Hgb 11.0 L Hct 35.0 L MCV 98.9 MCH 31.1 MCHC 31.4 L RDW Std Deviation 60.4 H RDW Coeff of Tin 17.0 H Plt Count 205 MPV 12.2 H Immature Gran % (Auto) 0.3 Neut % (Auto) 83.6 Lymph % (Auto) 7.6 [place] % (Auto) 5.7 Eos % (Auto) 2.7 Baso % (Auto) 0.1 Immature Gran # (Auto) 0.03 H Neut # (Auto) 7.87 H Lymph # (Auto) 0.72 L [place] # (Auto) 0.54 Eos # (Auto) 0.25 Baso # (Auto) 0.01 PT 12.4 H INR 1.2 H APTT 31.9 H PTT Ratio 1.2 Sodium 142 Potassium 4.3 Chloride 109 H Carbon Dioxide 23 Anion Gap 10.0 BUN 58 H Creatinine 1.84 H Est Cr Clr Drug Dosing 38.9 Est GFR ( Amer) 41.8 Est GFR (Non-Af Amer) 36.1 BUN/Creatinine Ratio 31.6 H Glucose 139 H POC Glucose Estimat Average Glucose Hemoglobin A1c Calcium 9.7 Magnesium 2.0 Total Bilirubin 1.3 H AST 29 ALT 27 Alkaline Phosphatase 147 H Troponin I < 0.015 NT-Pro-B Natriuret Pep 6960 H Total Protein 7.0 Albumin 3.4 Globulin 3.6 Albumin/Globulin Ratio 0.9 Specimen Hemolysis Urine Color Urine Appearance Urine pH Ur Specific [place] Urine Protein Urine Glucose (UA) Urine Ketones Urine Blood Urine Nitrite Urine Bilirubin Urine Urobilinogen Ur Leukocyte Esterase 07/11/19 07/11/19 07/12/19 17:00 20:13 06:34 WBC 9.72 RBC 3.20 L Hgb 10.1 L Hct 31.8 L MCV 99.4 MCH 31.6 MCHC 31.8 L RDW Std Deviation 60.6 H RDW Coeff of Tin 17.0 H Plt Count 198 MPV 12.5 H Immature Gran % (Auto) 0.2 Neut % (Auto) 82.4 Lymph % (Auto) 6.0 [place] % (Auto) 7.4 Eos % (Auto) 3.8 Baso % (Auto) 0.2 Immature Gran # (Auto) 0.02 Neut # (Auto) 8.01 H Lymph # (Auto) 0.58 L [place] # (Auto) 0.72 H Eos # (Auto) 0.37 Baso # (Auto) 0.02 PT INR APTT PTT Ratio Sodium Potassium Chloride Carbon Dioxide Anion Gap BUN Creatinine Est Cr Clr Drug Dosing Est GFR ( Amer) Est GFR (Non-Af Amer) BUN/Creatinine Ratio Glucose POC Glucose 128 H Estimat Average Glucose Hemoglobin A1c Calcium Magnesium Total Bilirubin AST ALT Alkaline Phosphatase Troponin I NT-Pro-B Natriuret Pep Total Protein Albumin Globulin Albumin/Globulin Ratio Specimen Hemolysis Urine Color Yellow Urine Appearance Clear Urine pH 6.5 Ur Specific [place] 1.011 Urine Protein Negative Urine Glucose (UA) Negative Urine Ketones Negative Urine Blood Negative Urine Nitrite Negative Urine Bilirubin Negative Urine Urobilinogen Negative Ur Leukocyte Esterase Negative 07/12/19 07/12/19 07/12/19 06:34 06:34 07:04 WBC RBC Hgb Hct MCV MCH MCHC RDW Std Deviation RDW Coeff of Tin Plt Count MPV Immature Gran % (Auto) Neut % (Auto) Lymph % (Auto) [place] % (Auto) Eos % (Auto) Baso % (Auto) Immature Gran # (Auto) Neut # (Auto) Lymph # (Auto) [place] # (Auto) Eos # (Auto) Baso # (Auto) PT INR APTT PTT Ratio Sodium 142 Potassium 4.5 Chloride 110 H Carbon Dioxide 27 Anion Gap 5.0 BUN 50 H Creatinine 1.69 H Est Cr Clr Drug Dosing 42.1 Est GFR ( Amer) 46.3 Est GFR (Non-Af Amer) 40.0 BUN/Creatinine Ratio 29.7 H Glucose 79 POC Glucose 82 Estimat Average Glucose 111 Hemoglobin A1c 5.5 Calcium 9.1 Magnesium 2.0 Total Bilirubin AST ALT Alkaline Phosphatase Troponin I NT-Pro-B Natriuret Pep Total Protein Albumin Globulin Albumin/Globulin Ratio Specimen Hemolysis Urine Color Urine Appearance Urine pH Ur Specific [place] Urine Protein Urine Glucose (UA) Urine Ketones Urine Blood Urine Nitrite Urine Bilirubin Urine Urobilinogen Ur Leukocyte Esterase 07/12/19 11:09 WBC RBC Hgb Hct MCV MCH MCHC RDW Std Deviation RDW Coeff of Tin Plt Count MPV Immature Gran % (Auto) Neut % (Auto) Lymph % (Auto) [place] % (Auto) Eos % (Auto) Baso % (Auto) Immature Gran # (Auto) Neut # (Auto) Lymph # (Auto) [place] # (Auto) Eos # (Auto) Baso # (Auto) PT INR APTT PTT Ratio Sodium Potassium Chloride Carbon Dioxide Anion Gap BUN Creatinine Est Cr Clr Drug Dosing Est GFR ( Amer) Est GFR (Non-Af Amer) BUN/Creatinine Ratio Glucose POC Glucose 167 H Estimat Average Glucose Hemoglobin A1c Calcium Magnesium Total Bilirubin AST ALT Alkaline Phosphatase Troponin I NT-Pro-B Natriuret Pep Total Protein Albumin Globulin Albumin/Globulin Ratio Specimen Hemolysis Urine Color Urine Appearance Urine pH Ur Specific [place] Urine Protein Urine Glucose (UA) Urine Ketones Urine Blood Urine Nitrite Urine Bilirubin Urine Urobilinogen Ur Leukocyte Esterase Medications Administered Current Inpatient Medications Acetaminophen (Tylenol) 650 mg PO Q4H PRN PRN Reason: Pain or Fever Stop: 08/10/19 18:16 Allopurinol (Zyloprim) 300 mg PO QPM [facility] Stop: 08/10/19 20:59 Last Admin: 07/11/19 21:08 Dose: 300 mg Documented by: Aspirin (Ecotrin Ectab) 81 mg PO QPM [facility] Stop: 08/10/19 20:59 Last Admin: 07/11/19 21:09 Dose: 81 mg Documented by: Atorvastatin Calcium (Lipitor) 20 mg PO QPM [facility] Stop: 08/10/19 20:59 Last Admin: 07/11/19 21:09 Dose: 20 mg Documented by: Dextrose (Dextrose 50%) 25 - 50 ml IV UD PRN; Protocol PRN Reason: Hypoglycemia Protocol Stop: 08/10/19 18:59 Doxycycline Hyclate (Vibramycin) 100 mg PO BID [facility]; Protocol Stop: 07/18/19 20:24 Last Admin: 02/29/20 09:05 Dose: 100 mg Documented by: Finasteride (Proscar) 5 mg PO QPM [facility] Stop: 08/10/19 20:59 Last Admin: 07/11/19 21:07 Dose: Not Given Documented by: Fluoxetine HCl (Prozac) 40 mg PO QPM [facility] Stop: 08/10/19 20:59 Last Admin: 07/11/19 21:10 Dose: 40 mg Documented by: Glucagon (Glucagen) 1 mg IM UD PRN; Protocol PRN Reason: Hypoglycemia Protocol Stop: 08/10/19 18:59 Glucose (Glucose 40%) 15 - 30 gm PO UD PRN; Protocol PRN Reason: Hypoglycemia Protocol Stop: 08/10/19 18:59 Glucose (Dex4 Glucose) 4 - 8 tabs PO UD PRN; Protocol PRN Reason: Hypoglycemia Protocol Stop: 08/10/19 18:59 Heparin Sodium (Porcine) (Heparin Sodium (Porcine)) 5,000 units SQ Q8 [facility] Stop: 08/10/19 21:59 Last Admin: 07/12/19 07:00 Dose: Not Given Documented by: Ceftriaxone Sodium 2,000 mg/ (Dextrose) 70 mls @ 100 mls/hr IV DAILY@2100 KATE; Protocol Stop: 07/18/19 20:59 Last Infusion: 07/11/19 22:00 Dose: Infused Documented by: Furosemide 60 mg/ Syringe 6 mls @ 4 mls/min IV BID [facility] Stop: 08/11/19 12:44 Insulin Aspart (Novolog Flexpen) 0 units SC ACHS [facility] Stop: 08/10/19 20:59 Last Admin: 07/12/19 12:08 Dose: 1 units Documented by: Levalbuterol HCl (Xopenex 1.25mg/3ml Neb) 1.25 mg NEB Q4H PRN PRN Reason: Shortness Of Breath Or Wheezing Stop: 08/10/19 18:16 Metoprolol Succinate (Toprol Xl) 12.5 mg PO QPM [facility] Stop: 08/10/19 20:59 Last Admin: 07/11/19 21:10 Dose: 12.5 mg Documented by: Miscellaneous (Carbohydrates For Hypoglycemia) 15 - 30 gm PO UD PRN PRN Reason: Hypoglycemia Treatment Stop: 08/10/19 18:59 Nitroglycerin (Nitrostat) 0.4 mg SL UD PRN PRN Reason: Chest Pain Stop: 08/10/19 18:16 Ondansetron HCl (Zofran) 4 mg IV Q6H PRN PRN Reason: Nausea Stop: 08/10/19 18:16 Spironolactone (Aldactone) 12.5 mg PO DAILY [facility] Stop: 08/11/19 12:44
[2019-07-12] MEDS: SPIRONOLACTONE 25 MG TAB PO SCH (13:34)
[2019-07-12] MEDS: FUROSEMIDE 60 MG in SYRINGE 0 ML IV SCH ×2 (13:34→17:00)
--- NOTE | 2019-07-12 16:28 | Ultrasound Report ---
US effusion-chest/mediastinum HISTORY: 73 years-old Male pleural effusions : Study in a patient with bilateral pleural effusions COMPARISON: Chest CT 07/11/2019 TECHNIQUE: Multiple real-time sonographic images of the chest were obtained assessing grayscale appea troy and color flow FINDINGS: Small right pleural effusion there is noted with overall volume of 157 mL and is mildly complex with associated pleural thickening and adjacent consolidated lung. Trace left pleural effusion. IMPRESSION: Small right and trace left pleural effusions. ACT 112: Negative or not required by law. The above report was generated using voice recognition software. It may contain grammatical, syntax o r spelling errors. Electronically signed by: Jean Claude Ramirez M.D. 07/12/2019 4:26 PM
[2019-07-12] MEDS: ASPIRIN 81 MG ECTAB PO SCH (20:36)
[2019-07-12] MEDS: FLUOXETINE HCL 20 MG CAP PO SCH (20:37)
[2019-07-12] MEDS: FINASTERIDE 5 MG TAB PO SCH (20:38)
[2019-07-12] MEDS: METOPROLOL SUCC 25MG EXT REL TAB PO SCH (20:38)
[2019-07-12] MEDS: ATORVASTATIN 20 MG TAB PO SCH (20:38)
[2019-07-12] MEDS: allopurinoL 300 MG TAB PO SCH (20:39)
[2019-07-12] MEDS: cefTRIAXone SODIUM 2,000 MG in DEXTROSE 5% 50 ML IV SCH (20:40)
[2019-07-13 05:47] LABS: Hematocrit (blood only) 33.5 % (42-52); Hemoglobin 10.7 g/dL (14.0-18.0); Mean Corpuscular Hemoglobin 31.7 pg (25-34); Mean Corpuscular Hgb Conc 31.9 g/dL (32-36); Mean Corpuscular Volume 99.1 fL (80-100); Nucleated RBC # (auto) 0.02 K/uL (0-0); Nucleated RBC % (auto) 0.2 %; Platelet Count 227 K/uL (130-400); RDW Coefficient of Variation 16.7 % (11.5-14.5); RDW Standard Deviation 59.1 fL (36.4-46.3); Red Blood Count 3.38 M/uL (4.7-6.1); White Blood Count 10.47 K/uL (4.8-10.8)
[2019-07-13 06:18] LABS: BUN Creatinine Ratio 26.3 (10-20); Calcium 9.3 mg/dl (8.5-10.1); Creatinine Clr Calc Pharmacy 47.7 ml/min; Est GFR (Non-African American) 46.6; Potassium 3.9 mmol/L (3.5-5.1)
[2019-07-13] MEDS: HEPARIN SOD 5,000 UNIT/0.5 ML VIAL SQ SCH ×3 (06:23→20:58)
[2019-07-13] MEDS: FUROSEMIDE 60 MG in SYRINGE 0 ML IV SCH ×3 (08:09→20:55)
[2019-07-13] MEDS: SPIRONOLACTONE 25 MG TAB PO SCH (08:09)
[2019-07-13] MEDS: DOXYCYCLINE HYCLATE 100 MG CAP PO SCH ×2 (08:10→20:57)
[2019-07-13] MEDS: INSULIN ASPART 100 UNITS/ML 3 ML PEN SC SCH ×4 (08:10→20:51)
--- NOTE | 2019-07-13 08:19 | Hospitalist Progress Note ---
Date of Service July 13, 2019 Assessment & Plan (1) CHF (congestive heart failure): ASSESSMENT AND PLAN: This is a 73-year-old male who presents with shortness of breath. 1. Shortness of breath most likely secondary to acute diastolic congestive heart failure, pleural effusions, possible infiltrates. Got IV Lasix 40 mg in the ER. Echocardiogram noted, CT of the chest noted. Recently had thoracentesis done on the right side on Sunday at [facility]. Result is Transudate, No Growth, Inflammatory cells, Blood, and Mesothelial Cells-Benign 2. Sleep apnea. Continue CPAP at bedtime. 3. Diabetes. Hold metformin. Placed on insulin sliding scale. 4. History of coronary artery disease status post coronary artery bypass graft. Continue his aspirin, statin, and Toprol-XL. Currently seems to be stable. 5. Acute kidney injury on chronic kidney disease stage III. Baseline creatinine around 1 to 1.2 6. History of osteomyelitis and diskitis with strep viridans bacteremia in June 2018. 7. Gout, continue his allopurinol. 8. Chronic respiratory failure secondary to congestive heart failure, on oxygen at home. 9. Deep venous thrombosis prophylaxis, heparin SC. Labs checked Feeling Better Pulm Consulted ROS-No Headache, No Visual Changes, No Nausea, No Vomiting, No Fever, No Chills, No Neck Pain or Stiffness, No Chest Pain, No Palpitations, No SOB, No LENTZ, No Cough, No Sputum, No Wheezing, No Abdominal Pain, No Diarrhea, No Hematemesis, No Hemoptysis, No Unexpected Weight Loss, No Flank pain, No Melena, No Hematochezia, No Frequency, No Urgency, No Burning, No Hematuria, No Rashes, No Diaphoresis. Appetite is Normal Physical Exam Gen-AAO x 3, NAD, Afebrile, on O2 Head-NCAT, EOMI, PERRLA, Anicteric Sclera, No Posterior Pharyngeal Erythema Neck-Supple, No JVD, No Thyromegaly, No Masses, No LAD, No Bruits Lungs-Clear to Auscultation Bilaterally, No Rales, No Rhonchi, No Wheezing, No Crepitus Chest-No S4, +S1, +S2, No S3, No Murmurs, No Rubs, No Gallops, No Ectopy Abdomen-Soft, Bowel Sounds Present, Non Tender, Non Distended, No Hepatomegaly, No Splenomegaly, No Palpable Masses, No Rebound, No Rigidity, No Guarding Musculoskeletal-Full Range of Motion Bilaterally, No CVAT Extremities-No Cyanosis, No Clubbing, No Edema Nuero-Cranial Nerves II-XII grossly intact, Motor WNL, DTRs WNL, Strength WNL, Non Focal Psych-Normal Mood Admission and Anticipated Discharge Date Admission Date: July 11, 2019 Results & Data ([facility]) Vital Signs (Past 12 Hours) Vital Signs Temp Pulse Pulse Resp BP Pulse Ox 07/13/19 07:06 36.8 C 65 20 111/59 L 96 07/13/19 03:16 37.1 C 65 16 142/68 H 95 07/12/19 23:03 37.5 C 70 16 127/62 97 07/12/19 22:20 74 (1) CHF (congestive heart failure) Heart failure chronicity: unspecified Heart failure type: unspecified Qualified Code(s): I50.9 - Heart failure, unspecified
--- NOTE | 2019-07-13 12:58 | Pulmonary Consultation ---
Date of Consultation July 13, 2019 Assessment & Plan (1) Acute hypoxemic respiratory failure: Patient's acute hypoxemic respiratory failure is likely related to his acute on chronic diastolic heart failure. He is currently being diuresed with IV Lasix and he is feeling much better. Recommend continued diuresis as cardiology is doing. The question has been raised regarding possible interstitial lung disease. He does have some interlobular septal thickening which is likely related to pulmonary edema. He also has bilateral effusions. I did review a CT chest from 2018 which did not demonstrate any significant fibrotic lung disease. It is difficult to say acutely whether the patient has significant interstitial lung disease. However, given the patient's underlying heart history and improvement with Lasix, I suspect that most of the findings that we have on his CT chest are likely related to diastolic heart failure. He also has some degree of secondary pulmonary hypertension from his diastolic heart failure and obstructive sleep apnea. He may need a right heart cath in the future if he continues to have significant dyspnea and his outpatient pulmonary function testing suggests a significantly decreased DLCO. Certainly, it is not unreasonable to obtain pulmonary function testing as an outpatient to further evaluate this. We would happily see him in the pulmonary clinic in the future. He does note that he has a admeasurer at [facility]. (2) Acute diastolic (congestive) heart failure: (3) Chronic bilateral pleural effusions: History of Present Illness Reason for Consultation: Possible interstitial lung disease Requesting Physician: Dr. Dyer Attending Physician: Sony Dyer DO History of Present Illness 73-year-old male with a past medical history significant for congenital bicuspid aortic valve status post replacement, recent strep viridans bacteremia and discitis, history of coronary artery bypass graft, type 2 diabetes mellitus, gout, thrombocytopenia, CKD, obstructive sleep apnea on CPAP who presented to the hospital on 07/11/2019 due to increasing shortness of breath. He notes that he had a thoracentesis on Sunday [facility] and subsequently felt more short of breath. He notes that he was only able to walk about 5 feet without dyspnea. He notes that in the last 5 months he has been on 2 to 3 L of supplemental oxygen. He has a cough and describes that he is unable to clear his secretions in the back of his throat. He does endorse mild chills. No fevers. No night sweats. Denies any chest pain. He describes that he feels short of breath when he lays on his right side. Denies any paroxysmal nocturnal dyspnea. He is very compliant with his CPAP per his account. He notes that he had numerous thoracentesis years ago. I was told by the hospitalist that it appears that the pleural fluid was a transudate. It also appears that he sees a admeasurer at [facility]. Patient notes that he feels substantially better compared to yesterday. He was diuresed with IV Lasix. He is net -1.16 L over the last 24 hours. It appears since admission, he is -965 mL. WBC count today is 10,470. Creatinine is 1.49. He is being diuresed with 60 mg 3 times daily of IV Lasix. He is also on doxycycline. Echocardiogram performed on 07/12/2019 demonstrated normal ejection fraction 55 to 60%, grade 2 diastolic dysfunction, pulmonary artery systolic pressure e stimated at 62 mmHg. There was mild mitral regurgitation and mild tricuspid regurgitation. No history of tobacco use. He lives with his in a house in [place]. They have no carpeting at home. They have no pets. They do have seasonal allergies. 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 He notes that the building he worked and had asbestos. 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 Allergies Allergy/AdvReac Type Severity Reaction Status Date / Time chlorhexidine Allergy Mild Rash Verified 07/11/19 15:50 naproxen Allergy Mild RASH Verified 07/11/19 15:50 Penicillins Allergy Unknown unknown Verified 07/11/19 15:50 sulfamethoxazole Allergy Unknown Unknown Verified 07/11/19 15:50 Home Medications Home Medications Medication Instructions Recorded Confirmed Type allopurinol 300 mg PO QPM 04/13/18 07/11/19 History aspirin [Aspir-81] 81 mg PO QPM 04/13/18 07/11/19 History atorvastatin 20 mg PO QPM 04/13/18 07/11/19 History metformin 1,000 mg PO QPM 04/13/18 07/11/19 History metoprolol succinate 12.5 mg PO QPM 04/13/18 07/11/19 History finasteride 5 mg PO QPM 06/15/18 07/11/19 History fluoxetine 40 mg PO QPM 07/11/19 07/11/19 History furosemide 40 mg PO QAM 07/11/19 07/11/19 History indomethacin 75 mg PO QPM PRN 07/11/19 07/11/19 History Patient History Medical History Aortic stenosis, moderate (Chronic) "s/p aortic valve replacement with prosthetic valve 04/2015" Asthma as a child Bacteremia (Acute) Strep viridans May-Jun 2018 BPH (benign prostatic hyperplasia) (Chronic) Bruxism, sleep-related (Chronic) CAD (coronary artery disease) (Chronic) "s/p CABG x 1 " Chronic rhinitis (Chronic) CKD (chronic kidney disease) stage 3, GFR 30-59 ml/min (Chronic) Diabetes type 2, controlled (Chronic) NIDDM Dyslipidemia (Chronic) Hearing deficit History of endocarditis History of transesophageal echocardiography ([facility]) Meniere's disease (Chronic) Mild sleep apnea no device Osteoarthritis Osteomyelitis of lumbar spine (Acute) Jun 2018 + discitis. Associated with Strep viridans bacteremia Patient is Mandaeism (Chronic) Surgical History History of aortic valve replacement (Resolved) "[facility] 04/2015 " History of cardiac cath 2014 - [facility] --> VALVE REPLACEMENT, CABG History of colonoscopy History of coronary artery bypass graft x 1 (Resolved) "04/14/[address] Justino Colunga" On 07/07/15 18:18 Diamond Garzajp wrote "04/14/2015" History of left inguinal hernia repair (Resolved) "[facility] Dr. Okeefe 1986" History of right inguinal hernia repair (Resolved) "1992; R inguinal hernia repair with repair of recurrent L inguinal hernia" Family History Mother , 94 FH: diabetes mellitus Ovarian cancer Father , age 73 FHx: emphysema Grandfather (Maternal) , age 47 Myocardial infarction Social History Preferred Language: Croatian Communication Ability: Effective Legal Secretary Required: No Beliefs That Will Affect Care: Islam Islam Beliefs: confucianism marital status: Current Living Situation: Spouse Current Living Situation Comment: diya current occupational status: retired Other Information That Helps Us Care for You: No Feels Safe at Home: Yes Safety Concerns: Feels Safe At This Time Smoking Status: Never smoker Second Hand Exposure: No ; Hx Alcohol Use: No Hx Substance Use: No Review of Systems Review of Systems: All systems reviewed & are unremarkable except as noted in Subjective Physical Exam Constitutional: Elderly-appearing male. He is laying in bed. He has nasal cannula in place. Eyes: PERRL, conjunctivae normal, anicteric sclerae ENMT: external ear and nose normal, oropharynx normal Neck: trachea midline, no thyromegaly Respiratory: Mild lower lobe crackles. Mildly tachypneic. Cardiovascular: Systolic flow murmur noted and is 2 out of 6. No edema. Regular rate and rhythm. Gastrointestinal (Abdomen): normal bowel sounds, soft, nontender, no hepatosplenomegaly Musculoskeletal: no cyanosis or clubbing, extremities motor strength 5/5 Skin: no rashes, warm and dry Neurologic: PERRL, EOMI, accommodation nl, no face palsy, no dysarthria Psychiatric: A+Ox3, euthymic affect Lymphatic: no cervical lymphadenopathy Results & Data ([facility]) Vital Signs (Past 12 Hours) Vital Signs Temp Pulse Pulse Resp BP Pulse Ox 07/13/19 11:04 97.5 F L 73 20 124/57 L 98 07/13/19 08:00 68 07/13/19 07:06 98.2 F 65 20 111/59 L 96 07/13/19 03:16 98.8 F 65 16 142/68 H 95 Personally reviewed the patient's labs, chest imaging and prior notes. PG Care Time/CCT Total # of Minutes Spent Total Time Spent with Patient: Total time spent is greater than 50% in coordination of care (as documented) at patient's floor/unit and/or counseling patient: Coding Level of Care Code 18689 Initial Inpt Care Lvl 3 Diagnoses Acute hypoxemic respiratory failure J96.01 Acute diastolic (congestive) heart failure I50.31 Chronic bilateral pleural effusions J90
[2019-07-13] MEDS ORDERED: POTASSIUM CHLORIDE 20 MEQ TABCR PO ONE (14:00)
--- NOTE | 2019-07-13 14:24 | Cardiology Progress Note ---
Date of Service July 13, 2019 Assessment & Plan (1) Acute diastolic (congestive) heart failure: He has been responding well to diuresis. Renal function actually improving so I will take this opportunity to increase the Lasix to every 8 hours. We will continue spironolactone. Continue strict I's and O's. We will continue to follow volume status clinically. (2) Chronic bilateral pleural effusions: Appreciate our pulmonary colleagues input. No sign of interstitial lung disease. We will continue to diurese as above. (3) CKD (chronic kidney disease) stage 3, GFR 30-59 ml/min: Will follow closely (4) History of coronary artery bypass graft x 1: Stable (5) History of aortic valve replacement: Indices are elevated. May be contributing to acute decompensation. We will need to follow further as an outpatient. Subjective Patient seen and examined with at bedside, states that he is feeling better. Notes that shortness of breath is improved but not yet quite back to baseline. Has been urinating frequently and ambulating in the hallway. Denies any chest pain, palpitations, lightheadedness, dizziness or syncope. Telemetry reviewed: Normal sinus rhythm with occasional PACs, no sustained arrhythmias. Review of Systems Review of Systems: All systems reviewed & are unremarkable except as noted in HPI & below Physical Exam Physical Exam: General: Awake, alert and oriented x 3. No acute distress. HEENT: Normocephalic, atraumatic. Pupils equal, round and reactive to light and accommodation. Extraocular muscles are intact. Anicteric sclera. Moist mucous membranes. Neck: No JVD. No bruit. Cardiovascular: Regular. Positive S-4. Normal S-1 and S-2. No S-3. 3/6 mid to late systolic ejection murmur, greatest at the right sternal border, second intercostal space with radiation to the bilateral carotids. No rubs. Pulmonary: Decreased breath sounds in the bilateral bases but improving. Abdomen: Bowel sounds x 4, soft. No rebound, guarding or tenderness. No organomegaly. Extremities: No clubbing, cyanosis or edema. +2 pedal pulses bilaterally. Skin: Warm and dry. Results & Data Vital Signs (Past 12 Hours) Vital Signs Temp Pulse Pulse Resp BP Pulse Ox 07/13/19 11:04 36.4 C L 73 20 124/57 L 98 07/13/19 08:00 68 07/13/19 07:06 36.8 C 65 20 111/59 L 96 07/13/19 03:16 37.1 C 65 16 142/68 H 95
[2019-07-13] MEDS: cefTRIAXone SODIUM 2,000 MG in DEXTROSE 5% 50 ML IV SCH (20:50)
[2019-07-13] MEDS: FINASTERIDE 5 MG TAB PO SCH (20:55)
[2019-07-13] MEDS: allopurinoL 300 MG TAB PO SCH (20:56)
[2019-07-13] MEDS: ATORVASTATIN 20 MG TAB PO SCH (20:56)
[2019-07-13] MEDS: METOPROLOL SUCC 25MG EXT REL TAB PO SCH (20:56)
[2019-07-13] MEDS: FLUOXETINE HCL 20 MG CAP PO SCH (20:56)
[2019-07-13] MEDS: ASPIRIN 81 MG ECTAB PO SCH (20:56)
[2019-07-14 06:00] LABS: Hematocrit (blood only) 35.6 % (42-52); Hemoglobin 11.4 g/dL (14.0-18.0); Mean Corpuscular Hemoglobin 31.4 pg (25-34); Mean Corpuscular Volume 98.1 fL (80-100); Mean Platelet Volume 11.6 fL (7.4-10.4); Platelet Count 232 K/uL (130-400); RDW Standard Deviation 60.4 fL (36.4-46.3); Red Blood Count 3.63 M/uL (4.7-6.1); White Blood Count 10.54 K/uL (4.8-10.8)
[2019-07-14 06:33] LABS: BUN Creatinine Ratio 24.5 (10-20); Calcium 9.4 mg/dl (8.5-10.1); Creatinine Clr Calc Pharmacy 42.3 ml/min; Est GFR (African American) 51.4; Est GFR (Non-African American) 44.4; Potassium 3.5 mmol/L (3.5-5.1)
[2019-07-14] MEDS: HEPARIN SOD 5,000 UNIT/0.5 ML VIAL SQ SCH ×3 (06:46→21:32)
--- NOTE | 2019-07-14 08:00 | Hospitalist Progress Note ---
Date of Service July 14, 2019 Assessment & Plan (1) CHF (congestive heart failure): ASSESSMENT AND PLAN: This is a 73-year-old male who presents with shortness of breath. 1. Shortness of breath secondary to acute diastolic congestive heart failure, pleural effusions, possible infiltrates. Got IV Lasix 40 mg in the ER. Echocardiogram noted, CT of the chest noted. Recently had thoracentesis done on the right side on Sunday at [facility]. Result is Transudate, No Growth, Inflammatory cells, Blood, and Mesothelial Cells-Benign, repeat CTC am 07/14, repeat BNP 07/14, still feels to weak to go home, pt/ot 2. Sleep apnea. Continue CPAP at bedtime. 3. Diabetes. Hold metformin. Placed on insulin sliding scale. 4. History of coronary artery disease status post coronary artery bypass graft. Continue his aspirin, statin, and Toprol-XL. Currently seems to be stable. 5. Acute kidney injury on chronic kidney disease stage III. Baseline creatinine around 1 to 1.2 6. History of osteomyelitis and diskitis with strep viridans bacteremia in June 2018. 7. Gout, continue his allopurinol. 8. Chronic respiratory failure secondary to congestive heart failure, on oxygen at home. 9. Deep venous thrombosis prophylaxis, heparin SC. Labs checked Feeling Better Pulm and Cards on case ROS-No Headache, No Visual Changes, No Nausea, No Vomiting, No Fever, No Chills, No Neck Pain or Stiffness, No Chest Pain, No Palpitations, No SOB, No LENTZ, No Cough, No Sputum, No Wheezing, No Abdominal Pain, No Diarrhea, No Hematemesis, No Hemoptysis, No Unexpected Weight Loss, No Flank pain, No Melena, No Hematochezia, No Frequency, No Urgency, No Burning, No Hematuria, No Rashes, No Diaphoresis. Appetite is Normal Physical Exam Gen-AAO x 3, NAD, Afebrile Head-NCAT, EOMI, PERRLA, Anicteric Sclera, No Posterior Pharyngeal Erythema Neck-Supple, No JVD, No Thyromegaly, No Masses, No LAD, No Bruits Lungs-Clear to Auscultation Bilaterally, + L Rales, No Rhonchi, No Wheezing, No Crepitus Chest-No S4, +S1, +S2, No S3, No Murmurs, No Rubs, No Gallops, No Ectopy Abdomen-Soft, Bowel Sounds Present, Non Tender, Non Distended, No Hepatomegaly, No Splenomegaly, No Palpable Masses, No Rebound, No Rigidity, No Guarding Musculoskeletal-Full Range of Motion Bilaterally, No CVAT Extremities-No Cyanosis, No Clubbing, No Edema Nuero-Cranial Nerves II-XII grossly intact, Motor WNL, DTRs WNL, Strength WNL, Non Focal Psych-Normal Mood Admission and Anticipated Discharge Date Admission Date: July 11, 2019 Results & Data ([facility]) Vital Signs (Past 12 Hours) Vital Signs Temp Pulse Pulse Resp BP Pulse Ox 07/14/19 07:10 36.7 C 62 18 124/60 97 07/14/19 03:56 36.9 C 70 22 145/67 H 93 07/13/19 23:06 36.5 C 68 16 120/69 95 07/13/19 22:20 66 (1) CHF (congestive heart failure) Heart failure chronicity: unspecified Heart failure type: unspecified Qualified Code(s): I50.9 - Heart failure, unspecified
[2019-07-14] MEDS: DOXYCYCLINE HYCLATE 100 MG CAP PO SCH ×2 (08:44→21:32)
[2019-07-14] MEDS: FUROSEMIDE 60 MG in SYRINGE 0 ML IV SCH ×3 (08:44→21:28)
[2019-07-14] MEDS: INSULIN ASPART 100 UNITS/ML 3 ML PEN SC SCH ×4 (08:45→21:32)
[2019-07-14] MEDS: SPIRONOLACTONE 25 MG TAB PO SCH (08:45)
--- NOTE | 2019-07-14 13:35 | Cardiology Progress Note ---
Date of Service July 14, 2019 Assessment & Plan (1) Acute diastolic (congestive) heart failure: Diuresis has slowed however patient continues to improve clinically. Do not believe that his volume overload can explain the hypoxemia though. We will continue with IV Lasix today and hold in the a.m. of 07/15/2019 and reevaluate his volume status clinically at that time. We will continue spironolactone. Continue strict I's and O's. We will continue to follow volume status clinically. (2) Chronic bilateral pleural effusions: Appreciate our pulmonary colleagues input. No sign of interstitial lung disease. We will continue to diurese as above. (3) CKD (chronic kidney disease) stage 3, GFR 30-59 ml/min: Will follow closely (4) History of coronary artery bypass graft x 1: Stable (5) History of aortic valve replacement: Indices are elevated. May be contributing to acute decompensation. We will need to follow further as an outpatient. (6) Hypoxia: Would consider asking our pulmonary colleagues to reevaluate and comment on the need for oxygen as an outpatient. Subjective Patient seen and examined out of bed states that he is feeling well. States that shortness of breath continues to improve however the patient continues to desaturate with ambulation. Nursing reports the patient ambulated in the hallway with a saturation of 70% but was asymptomatic. Then ambulated with oxygen and again saturations decreased into the 70s. His diuresis has slowed overnight and he denies any chest pain, palpitations, lightheadedness, dizziness or syncope. Telemetry reviewed: Normal sinus rhythm with occasional PACs, no sustained a rrhythmias. Review of Systems Review of Systems: All systems reviewed & are unremarkable except as noted in HPI & below Physical Exam Physical Exam: General: Awake, alert and oriented x 3. No acute distress. HEENT: Normocephalic, atraumatic. Pupils equal, round and reactive to light and accommodation. Extraocular muscles are intact. Anicteric sclera. Moist mucous membranes. Neck: No JVD. No bruit. Cardiovascular: Regular. Positive S-4. Normal S-1 and S-2. No S-3. No murmurs or rubs. Pulmonary: Clear to auscultation B/L. No rales, rhonchi or wheezing Abdomen: Bowel sounds x 4, soft. No rebound, guarding or tenderness. No organomegaly. Extremities: No clubbing, cyanosis or edema. +2 pedal pulses bilaterally. Skin: Warm and dry. Results & Data Vital Signs (Past 12 Hours) Vital Signs Temp Pulse Pulse Resp BP BP Pulse Ox 07/14/19 11:16 36.3 C L 67 22 130/70 98 07/14/19 11:04 93 07/14/19 08:45 67 07/14/19 07:10 36.7 C 62 18 124/60 97 07/14/19 03:56 36.9 C 70 22 145/67 H 93
--- NOTE | 2019-07-14 14:19 | Pulmonology Progress Note ---
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 After that patient had thoracentesis done on the right side verified and 50 mL of fluid was removed I do not have the results of the fluid. His underlying hypoxia is multifactorial but I think the majority of the component is from his diastolic CHF with grade 2 diastolic dysfunction. Patient is getting diuresed right now with significant improvement. Recommend judicious diuresis. Cardiology on board. Follow recommendations. I personally do not think there is any interstitial lung disease in this patient. Previous CAT scans were also reviewed. Patient does have interlobular thickening this is most likely because of vascular congestion. --Pulmonary hypertension Patient is a non-smoker With diastolic CHF likely represents type II Recommend pulmonary function test to be done as an outpatient once his cardiac status has been stabilized with diuretics to look at his DLCO. The DLCO is significantly low. Right heart cath to see if there is precapillary pulmonary hypertension can be thought of. --Obstructive sleep apnea Continue with CPAP Patient just had a CAT scan on 07/11/2019. No need to repeat the CAT scan on this admission. Will discontinue the order for tomorrow. Please note the above document was generated using voice recognition software. It may contain grammatical, syntax or spelling errors. (2) Acute diastolic (congestive) heart failure: (3) Chronic bilateral pleural effusions: Subjective Patient seen and examined at bedside. No acute distress, no adverse events overnight. Patient states that he is feeling better. Shortness of breath is improved. Denies any chest pain. Good appetite. No nausea or vomiting. Urinating well. At the time of examination patient was saturating 99% on 3 L nasal cannula. Went down to 2 L. Review of Systems Review of Systems: All systems reviewed & are unremarkable except as noted in HPI & below Physical Exam Physical Exam: Constitutional: No acute distress HEENT: EOMI, PERRLA Respiratory system: Decreased air entry bilaterally, no wheeze, no rhonchi positive crackles bilateral lower lobes CVS: S1-S2 positive, no murmurs or gallops Abdomen: Soft, nontender, nondistended, positive bowel sounds x4 Extremities: +2 pulses bilaterally radialis/ dorsalis pedis, no cyanosis, no edema Neuro: Awake alert oriented x3 Psych: Normal mood and affect G/U: No [place] Skin: no rashes, warm and dry Lymphatic: no cervical or axillary lymphadenopathy Results & Data ([facility]) Vital Signs (Past 12 Hours) Vital Signs Temp Pulse Pulse Resp BP BP Pulse Ox 07/14/19 11:16 36.3 C L 67 22 130/70 98 07/14/19 11:04 93 07/14/19 08:45 67 07/14/19 07:10 36.7 C 62 18 124/60 97 07/14/19 03:56 36.9 C 70 22 145/67 H 93 07/14/19 05:35 07/14/19 05:35 PG Care Time/CCT Total # of Minutes Spent Total Time Spent with Patient: Total time spent is greater than 50% in coordination of care (as documented) at patient's floor/unit and/or counseling patient: [place] [address] Subseq Hosp Care Lvl 3 Patient Type Established Diagnoses Acute hypoxemic respiratory failure J96.01 Acute diastolic (congestive) heart failure I50.31 Chronic bilateral pleural effusions J90
[2019-07-14] MEDS: POTASSIUM CHLORIDE 20 MEQ TABCR PO SCH ×2 (14:39→21:30)
[2019-07-14] MEDS: allopurinoL 300 MG TAB PO SCH (21:29)
[2019-07-14] MEDS: METOPROLOL SUCC 25MG EXT REL TAB PO SCH (21:29)
[2019-07-14] MEDS: ATORVASTATIN 20 MG TAB PO SCH (21:30)
[2019-07-14] MEDS: FINASTERIDE 5 MG TAB PO SCH (21:31)
[2019-07-14] MEDS: FLUOXETINE HCL 20 MG CAP PO SCH (21:31)
[2019-07-14] MEDS: ASPIRIN 81 MG ECTAB PO SCH (21:34)
[2019-07-14] MEDS: cefTRIAXone SODIUM 2,000 MG in DEXTROSE 5% 50 ML IV SCH (21:37)
[2019-07-15 06:35] LABS: Hematocrit (blood only) 37.5 % (42-52); Hemoglobin 11.9 g/dL (14.0-18.0); Mean Corpuscular Hemoglobin 31.4 pg (25-34); Mean Corpuscular Hgb Conc 31.7 g/dL (32-36); Mean Corpuscular Volume 98.9 fL (80-100); Mean Platelet Volume 12.1 fL (7.4-10.4); Nucleated RBC # (auto) 0.02 K/uL (0-0); Nucleated RBC % (auto) 0.2 %; Platelet Count 273 K/uL (130-400); RDW Coefficient of Variation 16.5 % (11.5-14.5); RDW Standard Deviation 59.8 fL (36.4-46.3); Red Blood Count 3.79 M/uL (4.7-6.1); White Blood Count 11.27 K/uL (4.8-10.8)
[2019-07-15 07:11] LABS: BUN Creatinine Ratio 26.6 (10-20); Calcium 10.2 mg/dl (8.5-10.1); Creatinine Clr Calc Pharmacy 40.2 ml/min; Est GFR (African American) 48.4; Est GFR (Non-African American) 41.8; Potassium 4.7 mmol/L (3.5-5.1)
[2019-07-15] MEDS: HEPARIN SOD 5,000 UNIT/0.5 ML VIAL SQ SCH ×2 (07:41→14:15)
[2019-07-15] MEDS: POTASSIUM CHLORIDE 20 MEQ TABCR PO SCH (08:24)
[2019-07-15] MEDS: SPIRONOLACTONE 25 MG TAB PO SCH (08:24)
[2019-07-15] MEDS: DOXYCYCLINE HYCLATE 100 MG CAP PO SCH (08:25)
[2019-07-15] MEDS: INSULIN ASPART 100 UNITS/ML 3 ML PEN SC SCH ×3 (08:25→17:12)
--- NOTE | 2019-07-15 08:31 | Hospitalist Progress Note ---
Date of Service July 15, 2019 Assessment & Plan (1) CHF (congestive heart failure): ASSESSMENT AND PLAN: This is a 73-year-old male who presents with shortness of breath. 1. Shortness of breath secondary to acute diastolic congestive heart failure, pleural effusions, possible infiltrates. Got IV Lasix 40 mg in the ER. Echocardiogram noted, CT of the chest noted. Recently had thoracentesis done on the right side on Sunday at [facility]. Result is Transudate, No Growth, Inflammatory cells, Blood, and Mesothelial Cells-Benign, repeat CTC am 07/14, repeat BNP 07/14, still feels to weak to go home, pt/ot 2. Sleep apnea. Continue CPAP at bedtime. 3. Diabetes. Hold metformin. Placed on insulin sliding scale. 4. History of coronary artery disease status post coronary artery bypass graft. Continue his aspirin, statin, and Toprol-XL. Currently seems to be stable. 5. Acute kidney injury on chronic kidney disease stage III. Baseline creatinine around 1 to 1.2 6. History of osteomyelitis and diskitis with strep viridans bacteremia in June 2018. 7. Gout, continue his allopurinol. 8. Chronic respiratory failure secondary to congestive heart failure, on oxygen at home. 9. Deep venous thrombosis prophylaxis, heparin SC. Labs checked Feeling a little Better Pulm and Cards on case Repeat CTC today, 2 step ordered ROS-No Headache, No Visual Changes, No Nausea, No Vomiting, No Fever, No Chills, No Neck Pain or Stiffness, No Chest Pain, No Palpitations, No SOB, No LENTZ, No Cough, No Sputum, No Wheezing, No Abdominal Pain, No Diarrhea, No Hematemesis, No Hemoptysis, No Unexpected Weight Loss, No Flank pain, No Melena, No Hematochezia, No Frequency, No Urgency, No Burning, No Hematuria, No Rashes, No Diaphoresis. Appetite is Normal Physical Exam Gen-AAO x 3, NAD, Afebrile Head-NCAT, EOMI, PERRLA, Anicteric Sclera, No Posterior Pharyngeal Erythema Neck-Supple, No JVD, No Thyromegaly, No Masses, No LAD, No Bruits Lungs-Clear to Auscultation Bilaterally, + R Rales, No Rhonchi, No Wheezing, No Crepitus Chest-No S4, +S1, +S2, No S3, No Murmurs, No Rubs, No Gallops, No Ectopy Abdomen-Soft, Bowel Sounds Present, Non Tender, Non Distended, No Hepatomegaly, No Splenomegaly, No Palpable Masses, No Rebound, No Rigidity, No Guarding Musculoskeletal-Full Range of Motion Bilaterally, No CVAT Extremities-No Cyanosis, No Clubbing, No Edema Nuero-Cranial Nerves II-XII grossly intact, Motor WNL, DTRs WNL, Strength WNL, Non Focal Psych-Normal Mood Admission and Anticipated Discharge Date Admission Date: July 11, 2019 Results & Data ([facility]) Vital Signs (Past 12 Hours) Vital Signs Temp Pulse Pulse Resp BP BP Pulse Ox 07/15/19 07:50 36.5 C 62 18 130/63 96 07/15/19 03:40 36.4 C L 67 16 121/68 96 07/14/19 23:18 36.8 C 68 20 129/67 96 07/14/19 22:20 76 (1) CHF (congestive heart failure) Heart failure chronicity: unspecified Heart failure type: unspecified Qualified Code(s): I50.9 - Heart failure, unspecified
--- NOTE | 2019-07-15 09:34 | CT Scan Report ---
CT chest wo con CT DOSE: 334.25 mGy.cm HISTORY: f/u on pleural effusion and Lung status TECHNIQUE: Multiaxial CT images of the chest were performed without contrast. A dose lowering techni que was utilized adhering to the principles of ALARA. COMPARISON: Chest CT 07/11/2019. FINDINGS: No pneumothorax. The central airways are patent. Scattered punctate calcified granulomas. D iffuse interlobular septal thickening has resolved. Peripheral consolidation within the lung bases ap pears to represent a combination of round and subsegmental atelectasis. This remains unchanged. A pne umonia could also have a similar appearance but is considered less likely. Small bilateral pleural ef fusions, right greater than left. Mild bibasilar pleural thickening. This suggests chronic pleural ef fusions. Borderline mediastinal lymphadenopathy. This could be reactive to the chronic congestive hea rt failure. The heart remains mildly enlarged. Normal caliber esophagus. Aneurysmal dilatation of the ascending thoracic aorta measuring up to 4.6 cm in diameter. Limited views of the upper abdomen demo nstrate normal liver and spleen. The adrenal glands are unremarkable. No suspicious lytic or blastic osseous lesions. There are poststernotomy changes. IMPRESSION: 1. Interval improvement/resolution of the pulmonary edema. Otherwise, no significant change compared to the prior study. 2. Peripheral consolidation within the lung bases appears to represent a combination of round and sub segmental atelectasis. A pneumonia could also have a similar appearance but is considered less likely . 3. Small bilateral pleural effusions, right greater than left. 4. Mild bibasilar pleural thickening. This suggests chronic pleural effusions. Infectious process cou ld also have a similar appearance but is considered less likely. 5. Aneurysmal dilatation of the ascending thoracic aorta measuring up to 4.6 cm in diameter. ACT 112: Negative or not required by law. Electronically signed by: Nicholas Michele M.D. 07/15/2019 9:33 AM
--- NOTE | 2019-07-15 12:56 | Cardiology Progress Note ---
Date of Service July 15, 2019 Assessment & Plan (1) Acute diastolic (congestive) heart failure: Does not examine as volume overloaded. Breathing close to baseline as per patient. At this point will restart oral furosemide 40 mg daily and continue spironolactone 12.5 mg daily as well. Okay to discharge the patient from a cardiac standpoint. Already scheduled to see Dr. Henderson in our clinic on the and recommend he follow-up as scheduled. Patient states he agrees with the above plan. (2) Chronic bilateral pleural effusions: Appreciate our pulmonary colleagues input. No sign of interstitial lung disease. (3) CKD (chronic kidney disease) stage 3, GFR 30-59 ml/min: Renal function has stabilized. May consider nephrology evaluation as an outpatient. Avoid any nephrotoxic agents. We will discontinue supplemental potassium at this time given the addition of spironolactone. Will need a BMP drawn as an outpatient in 1 week. (4) History of coronary artery bypass graft x 1: Stable (5) History of aortic valve replacement: Indices are elevated. May be contributing to acute decompensation. We will need to follow further as an outpatient. (6) Hypoxia: Per pulmonary Subjective Patient seen and examined upright in bed. States he is feeling well today and the breathing is almost back to baseline. Continue to use oxygen but denies any chest pain, palpitations, lightheadedness, dizziness or syncope. Telemetry reviewed: Normal sinus rhythm without arrhythmia. Review of Systems Review of Systems: All systems reviewed & are unremarkable except as noted in HPI & below Physical Exam Physical Exam: General: Awake, alert and oriented x 3. No acute distress. HEENT: Normocephalic, atraumatic. Pupils equal, round and reactive to light and accommodation. Extraocular muscles are intact. Anicteric sclera. Moist mucous membranes. Neck: No JVD. No bruit. Cardiovascular: Regular. Positive S-4. Normal S-1 and S-2. No S-3. 3/6 holosystolic ejection murmur, 5th intercostal space, mid-clavicular line without radiation. No rubs. Pulmonary: Clear to auscultation bilaterally. No rales, rhonchi, or wheezing. Abdomen: Bowel sounds x 4, soft. No rebound, guarding or tenderness. No organomegaly. Extremities: No clubbing, cyanosis or edema. +2 pedal pulses bilaterally. Skin: Warm and dry. Results & Data Vital Signs (Past 12 Hours) Vital Signs Temp Pulse Pulse Resp BP BP Pulse Ox 07/15/19 11:16 36.6 C 59 L 20 134/69 98 07/15/19 08:00 61 07/15/19 07:50 36.5 C 62 18 130/63 96 07/15/19 03:40 36.4 C L 67 16 121/68 96
[2019-07-15] MEDS ORDERED: FUROSEMIDE 40 MG TAB PO SCH (13:30)
--- NOTE | 2019-07-15 15:58 | Discharge Summary ---
Date of Service July 15, 2019 Admission HPI Per Admitting Provider 73-year-old male with past medical history significant for congenital bicuspid aorta status post prosthetic aortic valve replacement, history of strep viridans bacteremia with diskitis of L2-L3 in June 2018, history of coronary artery disease status post coronary artery bypass graft, pleuropericarditis postoperatively, , hyperlipidemia, type 2 diabetes, gout, thrombocytopenia, chronic kidney disease stage III, sleep apnea on CPAP started couple of months ago. Presents with shortness of breath. The patient is having shortness of breath for the last few months, but the last couple of weeks it got really worse, and he was in [facility] on Sunday with right-sided thoracocentesis, but it didnot improved his shortness of breath. He says he could not walk because of shortness of breath. He has cough once in a while with whitish phlegm. Denies any chest pain. No nausea, no vomiting, no headache. He will get dizzy when he stands up. No blurred visions. Somewhat hard of hearing. No sore throat, no fever, no chills, no abdominal pain. Normal bowel and bladder movements. No swelling in the legs. Currently, requiring 3 liters of oxygen, uses oxygen at home all the time and is taking his Lasix regularly. Admission Exam Per Admitting Provider GENERAL: The patient is of moderate build, not in acute distress currently. VITAL SIGNS: Temperature 36.3, pulse 70, respiratory rate 20, blood pressure 170/61, oxygen 98% on 3 liters nasal cannula. HEENT: No pallor, no icterus. Pupils equal, round, reactive to light. NECK: No JVD, no neck masses, no carotid bruits. CARDIOVASCULAR: S1, S2 heard, regular rate and rhythm, no murmur, no gallop. RESPIRATORY SYSTEM: Normal AP diameter. No accessory muscle use. Mild bibasilar crackles. No wheezing. ABDOMEN: Soft, bowel sounds present, nontender. No distention. CENTRAL NERVOUS SYSTEM: Cranial nerves II-XII grossly intact, nonfocal. EXTREMITIES: No edema, no erythema. Principal Diagnosis 1. Shortness of breath secondary to acute diastolic congestive heart failure, pleural effusions, possible infiltrates 2. Sleep apnea. 3. Diabetes. 4. History of coronary artery disease status post coronary artery bypass graft. 5. Acute kidney injury on chronic kidney disease stage III. 6. History of osteomyelitis and diskitis with strep viridans bacteremia in June 2018. 7. Gout 8. Chronic respiratory failure secondary to Chronic congestive heart failure, on oxygen at home. Discharge Exam See below Discharge Data Allergies Allergy/AdvReac Type Severity Reaction Status Date / Time chlorhexidine Allergy Mild Rash Verified 07/11/19 15:50 naproxen Allergy Mild RASH Verified 07/11/19 15:50 Penicillins Allergy Unknown unknown Verified 07/11/19 15:50 sulfamethoxazole Allergy Unknown Unknown Verified 07/11/19 15:50 Consultations 07/11/19 16:09 ED Decision to Admit Stat 07/11/19 18:17 Consult Case Management - Discharge Planning Routine 07/12/19 08:00 Consult Cardiology Routine 07/14/19 07:10 Consult Pulmonology Routine Ordered Studies 07/11/19 18:17 CT chest wo con Routine 07/12/19 US effusion-chest/mediastinum Routine 07/15/19 CT chest wo con Routine 07/15/19 07/15/19 07/15/19 Range/Units 11:18 07:20 05:46 WBC (4.8-10.8) K/uL RBC (4.7-6.1) M/uL Hgb (14.0-18.0) g/dL Hct (42-52) % MCV (80-100) fL MCH (25-34) pg MCHC (32-36) g/dL RDW Std Deviation (36.4-46.3) fL RDW Coeff of Tin (11.5-14.5) % Plt Count (130-400) K/uL MPV (7.4-10.4) fL Absolute Nucleated RBC (0-0) K/uL Nucleated RBC % (auto) % Sodium 138 (136-145) mmol/L Potassium 4.7 D (3.5-5.1) mmol/L Chloride 103 (98-107) mmol/L Carbon Dioxide 30 (21-32) mmol/L Anion Gap 5.0 (3-11) BUN 43 H (7-18) mg/dl Creatinine 1.63 H (0.6-1.4) mg/dl Est Cr Clr Drug Dosing 40.2 ml/min Est GFR ( Amer) 48.4 Est GFR (Non-Af Amer) 41.8 BUN/Creatinine Ratio 26.6 H (10-20) Glucose 102 H (70-99) mg/dl POC Glucose 139 H 96 (70-99) mg/dl Calcium 10.2 H (8.5-10.1) mg/dl NT-Pro-B Natriuret Pep 3117 H (0-900) pg/ml 07/15/19 07/14/19 07/14/19 Range/Units 05:46 20:08 16:04 WBC 11.27 H (4.8-10.8) K/uL RBC 3.79 L (4.7-6.1) M/uL Hgb 11.9 L (14.0-18.0) g/dL Hct 37.5 L (42-52) % MCV 98.9 (80-100) fL MCH 31.4 (25-34) pg MCHC 31.7 L (32-36) g/dL RDW Std Deviation 59.8 H (36.4-46.3) fL RDW Coeff of Tin 16.5 H (11.5-14.5) % Plt Count 273 (130-400) K/uL MPV 12.1 H (7.4-10.4) fL Absolute Nucleated RBC 0.02 H (0-0) K/uL Nucleated RBC % (auto) 0.2 % Sodium (136-145) mmol/L Potassium (3.5-5.1) mmol/L Chloride (98-107) mmol/L Carbon Dioxide (21-32) mmol/L Anion Gap (3-11) BUN (7-18) mg/dl Creatinine (0.6-1.4) mg/dl Est Cr Clr Drug Dosing ml/min Est GFR ( Amer) Est GFR (Non-Af Amer) BUN/Creatinine Ratio (10-20) Glucose (70-99) mg/dl POC Glucose 139 H 119 H (70-99) mg/dl Calcium (8.5-10.1) mg/dl NT-Pro-B Natriuret Pep (0-900) pg/ml Hospital Course (1) CHF (congestive heart failure): ASSESSMENT AND PLAN: This is a 73-year-old male who presents with shortness of breath. 1. Shortness of breath secondary to acute diastolic congestive heart failure, pleural effusions, possible infiltrates. Got IV Lasix 40 mg in the ER. Echocardiogram EF 55-60% , CT of the chest was done on admission-See Report. Recently had thoracentesis done on the right side on Sunday at [facility]. Result is Transudate, No Growth, Inflammatory cells, Blood, and Mesothelial Cells-Benign, repeat CTC improved study repeat BNP 3/3 better 2. Sleep apnea. Continue CPAP at bedtime. 3. Diabetes. Resume metformin. And OP DM regimen 4. History of coronary artery disease status post coronary artery bypass graft. Continue his aspirin, statin, and Toprol-XL. Currently seems to be stable. 5. Acute kidney injury on chronic kidney disease stage III. Baseline cre atinine around 1 to 1.2 6. History of osteomyelitis and diskitis with strep viridans bacteremia in June 2018. 7. Gout, continue his allopurinol. 8. Chronic respiratory failure secondary to congestive heart failure, on oxygen at home. Labs checked Feeling a little Better Pulm and Cards on case CTC today showed improved aeration DC home today, on AM Lasix and Aldactone, f/u c Dr Henderson, already has an appt ROS-No Headache, No Visual Changes, No Nausea, No Vomiting, No Fever, No Chills, No Neck Pain or Stiffness, No Chest Pain, No Palpitations, No SOB, No LENTZ, No Cough, No Sputum, No Wheezing, No Abdominal Pain, No Diarrhea, No Hematemesis, No Hemoptysis, No Unexpected Weight Loss, No Flank pain, No Melena, No Hematochezia, No Frequency, No Urgency, No Burning, No Hematuria, No Rashes, No Diaphoresis. Appetite is Normal Physical Exam Gen-AAO x 3, NAD, Afebrile Head-NCAT, EOMI, PERRLA, Anicteric Sclera, No Posterior Pharyngeal Erythema Neck-Supple, No JVD, No Thyromegaly, No Masses, No LAD, No Bruits Lungs-Clear to Auscultation Bilaterally, + R Rales, No Rhonchi, No Wheezing, No Crepitus Chest-No S4, +S1, +S2, No S3, No Murmurs, No Rubs, No Gallops, No Ectopy Abdomen-Soft, Bowel Sounds Present, Non Tender, Non Distended, No Hepatomegaly, No Splenomegaly, No Palpable Masses, No Rebound, No Rigidity, No Guarding Musculoskeletal-Full Range of Motion Bilaterally, No CVAT Extremities-No Cyanosis, No Clubbing, No Edema Nuero-Cranial Nerves II-XII grossly intact, Motor WNL, DTRs WNL, Strength WNL, Non Focal Psych-Normal Mood Total Time Total Time Spent Total Time Spent (In Minutes): 45 mins Total Time Includes: Examination of the Patient, Discharge Planning, Medication Reconciliation and Communication With Other Providers Discharge Plan Discharge Items Patient Disposition: Home - Self-Care Reason For Visit: SOB Discharge Diagnosis: 1. Shortness of breath secondary to acute diastolic congestive heart failure, pleural effusions, possible infiltrates 2. Sleep apnea. 3. Diabetes. 4. History of coronary artery disease status post coronary artery bypass graft. 5. Acute kidney injury on chronic kidney disease stage III. 6. History of osteomyelitis and diskitis with strep viridans bacteremia in June 2018. 7. Gout 8. Chronic respiratory failure secondary to Chronic congestive heart failure, on oxygen at home. Activity: Resume your previous activity Lifting: Gradually increase as tolerated Bathing: No limitations Sexual Activity: When tolerated Exercise/Sports: Gradually increase as tolerated Driving/Machine Use: No limitations Weightbearing: Full weightbearing Non-emergency contact: Primary Care Provider and Tile Grader Call non-emergency contact if: you have any medication questions Follow-up/Referrals: Spike Henderson MD [Physician] - 07/25/19 8:00 am (Has apt already on 07/24, not sure of the time) Abram Nunez, [Primary Care Provider] - Diet: Carb Consistent or DM2 and Heart Healthy Fluids: 1200ml (5 cups) Addtl Attending Provider Instructions: Daily weight in the AM, Call PCP or Dr Henderson if you gain more than 3 lbs overnight If you Gain more than 3 lbs overnight, Take 80 mg of Lasix in the am and 6 hours later Then see if you weight comes off the next day. If the weight doesn't come off then call your PCP and Dr Henderson Pending Studies at Discharge: No Stand-Alone Forms: My [facility] [employer], Smoking Cessation Medications and DC Order Prescriptions: New doxycycline hyclate 100 mg Capsule 100 mg PO BID Qty: 14 RF: 0 spironolactone 25 mg Tablet 12.5 mg PO DAILY Qty: 30 RF: 0 Continued metformin 500 mg tablet 1,000 mg PO QPM RF: 0 atorvastatin 20 mg tablet 20 mg PO QPM RF: 0 aspirin [Aspir-81] 81 mg Tablet,Delayed Release (Dr/Ec) 81 mg PO QPM RF: 0 allopurinol 300 mg tablet 300 mg PO QPM RF: 0 metoprolol succinate 25 mg tablet extended release 24 hr 12.5 mg PO QPM RF: 0 fluoxetine 40 mg capsule 40 mg PO QPM RF: 0 furosemide 40 mg tablet 40 mg PO QAM RF: 0 finasteride 5 mg Tablet 5 mg PO QPM RF: 0 Discontinued indomethacin 75 mg capsule, extended release 75 mg PO QPM PRN (Reason: Pain) RF: 0 Discharge Orders: Discharge Order (Routine); Ordered 07/15/19 Ordered By: Sony Dyer Admission Data Admit Date/Time: 07/11/19 17:15 Attending Provider: Sony Dyer Admit Provider: Gorge Tolliver Primary Care Provider: Abram Nunez Other Providers: Gorge Tolliver ; Spike Henderson ; Brandon Viramontes
--- NOTE | 2019-07-15 17:04 | Pulmonology Progress Note ---
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 After that patient had thoracentesis done on the right side verified and 500 mL of fluid was removed, I do not have the results of the fluid. His underlying hypoxia is multifactorial but I think the majority of the component is from his diastolic CHF with grade 2 diastolic dysfunction. Patient is getting diuresed right now with significant improvement. Recommend judicious diuresis. Cardiology on board. Follow recommendations. I personally do not think there is any interstitial lung disease in this patient. Previous CAT scans were also reviewed. Patient does have interlobular thickening this is most likely because of vascular congestion. --Pulmonary hypertension Patient is a non-smoker With diastolic CHF likely represents type II Recommend pulmonary function test to be done as an outpatient once his cardiac status has been stabilized with diuretics to look at his DLCO. If the DLCO is significantly low then right heart cath to see if there is precapillary pulmonary hypertension can be thought of. --Obstructive sleep apnea Continue with CPAP Plan: Patient stable from pulmonary perspective. Recommend full pulmonary function test to be done as an outpatient once patient has been stabilized from cardiac stand point. No further recommendations from Pulmonary perspective. Will sign off. Recall if needed. Please note the above document was generated using voice recognition software. It may contain grammatical, syntax or spelling errors. (2) Acute diastolic (congestive) heart failure: (3) Chronic bilateral pleural effusions: Subjective Patient seen and examined at bedside. No acute distress, no adverse events overnight. Patient is walking around with his oxygen. Patient just returned from a his washroom prior to examination. Saturation at the time of examination was 93% on 2 L nasal cannula. Shortness of breath is improved. Denies any chest pain, no dizziness, no headache, no nausea, no vomiting. Good appetite. Urinating well. Review of Systems Review of Systems: All systems reviewed & are unremarkable except as noted in HPI & below Physical Exam Physical Exam: Constitutional: No acute distress HEENT: EOMI, PERRLA Respiratory system: Decreased air entry bilaterally, no wheeze, no rhonchi, positive crackles right lower lobe CVS: S1-S2 positive, no murmurs or gallops Abdomen: Soft, nontender, nondistended, positive bowel sounds x4 Extremities: +2 pulses bilaterally radialis/ dorsalis pedis, no cyanosis, no edema Neuro: Awake alert oriented x3 Psych: Normal mood and affect G/U: No [place] Skin: no rashes, warm and dry Lymphatic: no cervical or axillary lymphadenopathy Results & Data ([facility]) Vital Signs (Past 12 Hours) Vital Signs Temp Pulse Pulse Resp BP BP Pulse Ox 07/15/19 16:25 36.9 C 56 L 18 134/69 129/61 97 07/15/19 15:52 36.9 C 56 L 18 129/61 97 07/15/19 15:33 58 L 07/15/19 11:16 36.6 C 59 L 20 134/69 98 07/15/19 08:00 61 07/15/19 07:50 36.5 C 62 18 130/63 96 07/15/19 05:46 07/15/19 05:46 PG Care Time/CCT Total # of Minutes Spent Total Time Spent with Patient: Total time spent is greater than 50% in coordination of care (as documented) at patient's floor/unit and/or counseling patient: Coding Level of Care Code 17208 Subseq Hosp Care Lvl 3 Diagnoses Acute hypoxemic respiratory failure J96.01 Acute diastolic (congestive) heart failure I50.31 Chronic bilateral pleural effusions J90
== END 2019-07-15 17:35 | disposition home or self-care (01) | DRG 291 ==
LOC: ED 14:44 → 2S 17:15 → SUATTDRO 17:15 → 2S 17:51